=== PATIENT | female | born 1930 | race Caucasian/White ===

== ENCOUNTER 2016-05-17 20:25 | Inpatient (IN) | payer MEDICAID ==
--- NOTE | 2016-05-17 20:36 | ED Physician Chart ---
Chief Complaint/HPI - Patient Information Date Seen:: 05/17/16 Time Seen:: 20:33 Chief Complaint:: agressive behavior History of Present Illness:: pt sent [place] for aggressive behavior. has been difficult for staff to keep her calm. no recent trauma denies any acute pain. no recent illness. Allergies:: Allergies Allergy/AdvReac Type Severity Reaction Status Date / Time No Known Allergies Allergy Verified 12/24/15 23:16 Historian:: Patient Review:: Transfer documents Reviewed Review of Systems - Review of Systems General/Constitutional: No fever, No chills, No weight loss, No weakness, No diaphoresis, No edema, No loss of appetite Skin: No skin lesions, No rash, No bruising Head: No headache, No light-headedness Eyes: No loss of vision, No pain, No diplopia ENT: No earache, No nasal drainage, No sore throat, No tinnitus Neck: No neck pain, No swelling, No thyromegaly, No stiffness, No mass noted Cardio Vascular: No chest pain, No palpitations, No PND, No orthopnea, No edema Pulmonary: No SOB, No cough, No sputum, No wheezing GI: No nausea, No vomiting, No diarrhea, No pain, No melena, No hematochezia, No constipation, No hematemesis G/U: No dysuria, No frequency, No hematuria Musculoskeletal: No bone or joint pain, No back pain, No muscle pain Endocrine: No polyuria, No polydipsia Psychiatric: Prior psych history, No depression, No anxiety, No suicidal ideation, Other (difficult behavior) Hematopoietic: No bruising, No lymphadenopathy Allergic/Immuno: No urticaria, No angioedema Neurological: No syncope, No focal symptoms, No weakness, No paresthesia, No headache, No seizure, No dizziness, Confusion (chronic dementia), No vertigo Past Medical History - Past Medical History Past Medical History: Dementia Social History: Care Facility Psychiatricy History: Dementia Medication: Reviewed Family Medical History - Family Member Mother History Unknown: Yes Ethnicity: Physical Exam - Physical Examination General/Constitutional: Awake, Well-developed, well-nourished, Alert, No distress, Non-toxic appearing, Ambulatory Other Gen/Cons comments:: pt is alert...somewhat oriented but poor historain for medical hx. is alert and talking a lot. wn/wh. thin woman. wn/wh Head: Atraumatic Eyes: Lids, conjuctiva normal, PERRL, EOMI Skin: Nl inspection, No rash, No skin lesions, No ecchymosis, Well hydrated, No lymphadenopathy ENMT: External ears, nose nl, Nasal exam nl, Lips, teeth, gums nl Neck: Nontender, Full ROM w/o pain, No JVD, No nuchal rigidity, No bruit, No mass, No stridor Respiratory: Nl effort/Exclusion, Clear to Auscultation, No Wheeze/Rhonchi/Rales Cardio Vascular: RRR, No murmur, gallop, rubs, NL S1 S2 GI: No tenderness/rebounding/guarding, No organomegaly, No hernia, Normal BS's, Nondistended, No mass/bruits, No McBurney tenderness : No CVA tenderness Extremities: No tenderness or effusion, Full ROM, normal strength in all extremities, No edema, Normal digits & nails Neuro/Psych: Alert/oriented, DTR's symmetric, Normal sensory exam, Normal motor strength, Mood normal, Normal gait, No focal deficits Other Neuro/Psych comments:: somewhat excited. Misc: normal gait, Normal back, No paraspinal tenderness Labs/Radiology/EKG Results - Lab Results Results: Laboratory Tests 05/17/16 05/17/16 20:44 20:44 WBC 9.6 D RBC 3.60 L Hgb 11.8 Hct 32.9 L MCV 91.3 MCH 32.6 H MCHC Differential 35.7 RDW 12.9 Plt Count 208 D MPV 9.0 Neutrophils % 70.6 Lymphocytes % 21.7 Monocytes % 6.1 Eosinophils % 0.8 Basophils % 0.8 Sodium 139 Potassium 4.1 Chloride 102 Carbon Dioxide 28.6 Anion Gap 12.5 BUN 35 H Creatinine 0.9 Est GFR ( Amer) TNP Est GFR (Non-Af Amer) TNP BUN/Creatinine Ratio 38.9 Glucose 112 H Calcium 10.0 Total Bilirubin 0.4 AST 15 ALT 10 Alkaline Phosphatase 66 Total Protein 7.0 Albumin 4.1 Globulin 2.9 Albumin/Globulin Ratio 1.4 Triglycerides 197 H Cholesterol 148 LDL Cholesterol Direct 81 HDL Cholesterol 43 ED Septic Shock - . Is Septic Shock (SBP<90, OR Lactate>4 mmol\\L) present?: No Reassessment (Disposition) - Reassessment Reassessment:: case dw dr asia mckeon is admitting pt for "alt loc" Reassessment Condition:: Improved - Diagnosis Diagnosis:: 1 aggressive / difficult behavior 2 medically clear for geripsych admission - Aftercare/Follow up Instructions Notes:: no [facility] psych bed is currently available - Patient Disposition Admitted to:: Med/Surg Condition at Disposition:: Improved
[2016-05-17 20:54] LABS: % BASOPHILS 0.8 % (0.0-2.0); % EOSINOPHILS 0.8 % (0.0-5.0); % LYMPHOCYTES 21.7 % (20.0-50.0); % MONOCYTES 6.1 % (2.0-10.0); % NEUTROPHILS 70.6 % (40.0-80.0); HEMATOCRIT 32.9 % (35.0-45.0); HEMOGLOBIN 11.8 gm/dL (11.7-16.1); MEAN CELL VOLUME 91.3 fl (81-100); MEAN CORPUSCULAR HEMOGLOBIN 32.6 pg (27.0-31.0); MEAN CORPUSCULAR HGB CONC 35.7 pg (28.0-36.0); NEUTROPHILE ABSOLUTE 6.7 Th/cmm (1.8-8.0); RED CELL DISTRIBUTION WIDTH 12.9 % (11.5-20.0)
[2016-05-17 20:59] LABS: PLATELET COUNT 208 Th/cmm (150-400); WHITE BLOOD COUNT 9.6 Th/cmm (4.8-10.8)
[2016-05-17 21:08] LABS: ALB/GLOB RATIO 1.4 (1.0-1.8); ALKALINE PHOSPHATASE 66 U/L (34-104); ANION GAP 12.5 (7.0-16.0); BILIRUBIN,TOTAL 0.4 mg/dL (0.3-1.0); BUN - UREA NITROGEN 35 mg/dL (7-25); BUN/CREATININE RATIO 38.9; CARBON DIOXIDE 28.6 mEq/L (21.0-31.0); CHLORIDE 102 mEq/L (98-107); CHOLESTEROL 148 mg/dL (<200); CREATININE - SERUM 0.9 mg/dL (0.6-1.2); GLUCOSE 112 mg/dL (70-105); POTASSIUM SERUM 4.1 mEq/L (3.5-5.1); SGOT 15 U/L (13-39); SGPT/ALT 10 U/L (7-52); SODIUM SERUM 139 mEq/L (136-145); TRIGLYCERIDES 197 mg/dL (<150)
[2016-05-17 22:25] LABS: URINE BILIRUBIN NEGATIVE (NEGATIVE); URINE BLOOD NEGATIVE (NEGATIVE); URINE COLOR YELLOW; URINE GLUCOSE (UA) NEGATIVE (NEGATIVE); URINE KETONE NEGATIVE (NEGATIVE); URINE PH 5.5; URINE PROTEIN NEGATIVE (NEGATIVE); URINE UROBILINOGEN 0.2 E.U./dL (0.2 - 1.0)
[2016-05-17 22:26] LABS: URINE BACTERIA OCCASIONAL /hpf (NONE SEEN); URINE EPITHELIAL CELLS OCCASIONAL /lpf (FEW); URINE RBC 0-2 /hpf (0-5); URINE WBC 0-2 /hpf (0-5)
--- NOTE | 2016-05-18 02:22 | Admit Criteria Form ---
Admit Criteria Forms - Admit Criteria Diagnosis: ACUTE LOSS OF CONSCIOUSNESS- ALOC Clinical Indications for Inpatient Care (Place 'X' for any and all applicable criteria): Ongoing inpatient care may be needed for ANY ONE of the following(1)(2)(3)(5)(6) : [ ]I. Suspected serious etiology (eg, medical disorder, COMPUTER GRAPHIC ARTIST event) of mental status change [ ]II. Danger to self or others not manageable at lower level of care [ ]III. Grave disability (eg, inability to perform self care necessary at lower level of care) [ ]IV. Agitation or inappropriate behavior interfering with care for primary condition (eg, attempting to discontinue lines or drains prematurely, unable to cooperate with respiratory care) [ ]V. Delirium [A] [D][E] as described by ANY ONE of the following(26): [ ]a) Delirium due to alcohol or sedative [F] withdrawal [ ]b) Delirium of uncertain etiology that has not responded to appropriate empiric treatment [ ]c) Delirium that prevents performance of a life-sustaining function (eg, feeding or hydrating oneself) [X ]. General contraindications and/or Inappropriate clinical situations for Observational Care in patients with Acute Loss of Consciousness, when ANY ONE of the following is required: [X ]a) Prediction of prolongation of LOS based on ANY ONE of the following may be considered as a contraindication for observational care 2, 3, 4, 5, 6, 7, 8 , 9, 10, 11 [X ]i) Age > 65 yrs. [ ]ii) Patient arriving by ambulance [ ]iii) Patient with high acuity [ ]iv) Patient requiring vital sign monitoring [ ]v) Patient on IV medication [ ]b) Systolic blood pressures 180mmHg 3,12 [ ]c) Patient with altered mental status including delirium and other alteration of consciousness, (3) [ ]d) Patient whose discharge disposition will be to a assisted home or rehabilitation home should not be managed in Emergency Department Observation Unit. CMS rule requires 3 days hospital stay before such placement.3,13 [ ]e) Patient with failure to thrive due to broad array of etiologies 3,16,17 [ ]f) Inability to ambulate 3,14 Extended stay beyond goal length of stay for the primary condition may be needed until ALL of the following are present(3)(5): [ ]a) Underlying medical etiology of mental status change is absent, or has been established and adequately treated [ ]b) Danger to self or others is absent or manageable at lower level of care. [ ]c) Behavior crisis management, including physical or chemical restraints, is not required or available at lower level of car [ ]d) Substance or alcohol withdrawal is absent or manageable at lower level of care. [ ]e) Behavioral symptoms (eg, agitation, somnolence, inappropriate behavior) are absent, or are manageable at lower level of care. The original [facility] content created by [facility] has been revised. The portions of the content which have been revised are identified through the use of italic text or in bold, and [facility] has neither reviewed nor approved the modified material. All other unmodified content is copyright [facility]. Please see references footnoted in the original [facility] edition 2016 Admit Criteria Met?: Yes
[2016-05-18] MEDS ORDERED: Pneumococcal Vaccine 0.5 mL Vial IM ONE (02:44)
[2016-05-18] MEDS ORDERED: Fleet Enema 135 mL RC PRN (06:10)
[2016-05-18] MEDS ORDERED: Magnesium Hydroxide (MOM) 30 mL UDC PO PRN (06:10)
[2016-05-18] MEDS ORDERED: Non-Formulary Item 1 EA (Glucagon,Human Recombinant [Glucagon Emergency Kit] 1 MG) IJ SCH (06:15)
[2016-05-18] MEDS ORDERED: GLUCAGON HCl 1 MG KIT SUBQ PRN (08:07)
[2016-05-18] MEDS: Pantoprazole 40 mg EC Tab PO SCH (08:44)
[2016-05-18] MEDS: Polyvinyl Alcohol Ophth Soln 15 mL Bottle EACH EYE SCH ×2 (08:46→17:00)
[2016-05-18] MEDS ORDERED: LACTOSE REDUCED FOOD PO SCH (09:00)
[2016-05-18] MEDS ORDERED: Haloperidol Lactate 5 mg/mL 1mL Vial IM ONE (11:12)
--- NOTE | 2016-05-18 13:41 | History & Physical ---
HISTORY OF PRESENT ILLNESS: The patient was admitted yesterday, sent from the senior care for aggressive behavior and the patient has been confused. REVIEW OF SYSTEMS: Difficult to obtain because of her behavior. PAST MEDICAL HISTORY: The patient known to have history of dementia. PHYSICAL EXAMINATION: GENERAL: The patient is well developed, alert female, very confused, making lot of noise. HEAD: Normal. ENT: Normal. LUNGS: Bilaterally clear. CARDIOVASCULAR SYSTEM: S1, S2 heard. ABDOMEN: Soft. Bowel sounds are heard. CENTRAL NERVOUS SYSTEM: The patient is confused and disoriented. LABORATORY DATA: The patient's white count was 9.6. Hemoglobin was normal. DIAGNOSES: 1. Severe aggressive behavior. 2. Rule out toxic metabolic encephalopathy and rule out electrolyte imbalance and the patient had history of psychosis. PLAN: The patient is going to be admitted and workup will be done and will call psych doctor to admit her under Geropsych and I will follow the patient. JOB# [id number]
[2016-05-18 16:07] LABS: HEP B CORE IGM Negative (Negative); HEP C ANTIBODY <0.1 s/co ratio (0.0-0.9)
--- NOTE | 2016-05-18 20:33 | Consultation ---
PHYSICIAN: Dr. Kylah Perkins. JOURNEYMAN PATTERNMAKER: Dr. Braulio Rosales. REASON FOR THE CONSULT: Agitation and aggression. HISTORY OF PRESENT ILLNESS: The patient is an 85-year-old female who was transferred from [facility] because of increased agitation and irritability and Dr. Perkins asked me to evaluate the patient. The patient was extremely agitated and aggressive and pulling IV ____ blood all over the place and on the nurses' who were trying to help her. The patient also has been hitting and aggressive, trying to bite other staff which has the same ____ problem she exhibited in the group home. The patient also has been refusing care and refusing treatment for no apparent reason except ____ confusion and agitation. Because of her agitation, the patient was given Haldol 2 mg and Ativan 1 mg. The patient currently is sedated and is sleepy and has difficulty with answering any of the questions. Also, staff was not able to give ____ IV because of her irritability earlier and currently the patient is sedated and sleepy. Unable to take much information from the patient because of current sedation and information obtained from chart and review with the staff. PAST PSYCHIATRIC HISTORY: The patient has history of dementia and psychosis. PAST MEDICAL HISTORY: As per Dr. Perkins. SOCIAL HISTORY: The patient lives in [facility]. No known alcohol or drug use. MENTAL STATUS EXAM: The patient appears her stated age. Currently sedated. Disheveled. Unable to assess her orientation or memory or suicide or homicide or her psychosis, but seems that the patient was psychotic earlier and agitated. Poor insight. Poor judgment. ASSESSMENT: PRIMARY DIAGNOSIS: Unspecified psychosis. TREATMENT PLAN: We will continue p.r.n. medications for the time being. Also, transfer the patient to [facility] when medically cared in order to monitor her psychotropic medications and to work on behavioral modification. Thank you Dr. Perkins. JOB# [id number]
[2016-05-19] MEDS: Polyvinyl Alcohol Ophth Soln 15 mL Bottle EACH EYE SCH (09:41)
[2016-05-19] MEDS: Pantoprazole 40 mg EC Tab PO SCH (09:42)
--- NOTE | 2016-05-19 15:15 | General Progress Note ---
Objective - Results Result Diagrams: 05/17/16 20:44 05/17/16 20:44 Recent Labs: Laboratory Last Values WBC 9.6 Th/cmm (4.8-10.8) D 05/17/16 20:44 RBC 3.60 Mil/cmm (3.80-5.20) L 05/17/16 20:44 Hgb 11.8 gm/dL (11.7-16.1) 05/17/16 20:44 Hct 32.9 % (35.0-45.0) L 05/17/16 20:44 MCV 91.3 fl (81-100) 05/17/16 20:44 MCH 32.6 pg (27.0-31.0) H 05/17/16 20:44 MCHC Differential 35.7 pg (28.0-36.0) 05/17/16 20:44 RDW 12.9 % (11.5-20.0) 05/17/16 20:44 Plt Count 208 Th/cmm (150-400) D 05/17/16 20:44 MPV 9.0 fl 05/17/16 20:44 Neutrophils % 70.6 % (40.0-80.0) 05/17/16 20:44 Lymphocytes % 21.7 % (20.0-50.0) 05/17/16 20:44 Monocytes % 6.1 % (2.0-10.0) 05/17/16 20:44 Eosinophils % 0.8 % (0.0-5.0) 05/17/16 20:44 Basophils % 0.8 % (0.0-2.0) 05/17/16 20:44 Sodium 139 mEq/L (136-145) 05/17/16 20:44 Potassium 4.1 mEq/L (3.5-5.1) 05/17/16 20:44 Chloride 102 mEq/L (98-107) 05/17/16 20:44 Carbon Dioxide 28.6 mEq/L (21.0-31.0) 05/17/16 20:44 Anion Gap 12.5 (7.0-16.0) 05/17/16 20:44 BUN 35 mg/dL (7-25) H 05/17/16 20:44 Creatinine 0.9 mg/dL (0.6-1.2) 05/17/16 20:44 Est GFR ( Amer) TNP 05/17/16 20:44 Est GFR (Non-Af Amer) TNP 05/17/16 20:44 BUN/Creatinine Ratio 38.9 05/17/16 20:44 Glucose 112 mg/dL (70-105) H 05/17/16 20:44 Calcium 10.0 mg/dL (8.6-10.3) 05/17/16 20:44 Total Bilirubin 0.4 mg/dL (0.3-1.0) 05/17/16 20:44 AST 15 U/L (13-39) 05/17/16 20:44 ALT 10 U/L (7-52) 05/17/16 20:44 Alkaline Phosphatase 66 U/L (34-104) 05/17/16 20:44 Total Protein 7.0 gm/dL (6.0-8.3) 05/17/16 20:44 Albumin 4.1 gm/dL (3.7-5.3) 05/17/16 20:44 Globulin 2.9 gm/dL 05/17/16 20:44 Albumin/Globulin Ratio 1.4 (1.0-1.8) 05/17/16 20:44 Triglycerides 197 mg/dL (<150) H 05/17/16 20:44 Cholesterol 148 mg/dL (<200) 05/17/16 20:44 LDL Cholesterol Direct 81 mg/dL (75-193) 05/17/16 20:44 HDL Cholesterol 43 mg/dL (23-92) 05/17/16 20:44 TSH 1.16 uIU/ml (0.34-5.60) 05/17/16 20:44 Urine Source RANDOM 05/17/16 21:50 Urine Color YELLOW 05/17/16 21:50 Urine Clarity CLEAR (CLEAR) 05/17/16 21:50 Urine pH 5.5 05/17/16 21:50 Ur Specific [place] 1.020 (1.005-1.030) 05/17/16 21:50 Urine Protein NEGATIVE mg/dL (NEGATIVE) 05/17/16 21:50 Urine Glucose (UA) NEGATIVE mg/dL (NEGATIVE) 05/17/16 21:50 Urine Ketones NEGATIVE mg/dL (NEGATIVE) 05/17/16 21:50 Urine Blood NEGATIVE (NEGATIVE) 05/17/16 21:50 Urine Nitrate NEGATIVE (NEGATIVE) 05/17/16 21:50 Urine Bilirubin NEGATIVE (NEGATIVE) 05/17/16 21:50 Urine Urobilinogen 0.2 E.U./dL (0.2 - 1.0) 05/17/16 21:50 Ur Leukocyte Esterase NEGATIVE (NEGATIVE) 05/17/16 21:50 Urine RBC 0-2 /hpf (0-5) 05/17/16 21:50 Urine WBC 0-2 /hpf (0-5) 05/17/16 21:50 Ur Epithelial Cells OCCASIONAL /lpf (FEW) 05/17/16 21:50 Urine Bacteria OCCASIONAL /hpf (NONE SEEN) 05/17/16 21:50 RPR NONREACTIVE (NONREACTIVE) 05/17/16 20:44 Hepatitis A IgM Ab Negative (Negative) 05/17/16 20:44 Hep Bs Antigen Negative (Negative) 05/17/16 20:44 Hep B Core IgM Ab Negative (Negative) 05/17/16 20:44 Hepatitis C Antibody <0.1 s/co ratio (0.0-0.9) 05/17/16 20:44 - Physical Exam Vitals and I&O: Vital Signs Temp 97.7 F 05/19/16 04:00 Pulse 60 05/19/16 14:53 Resp 18 05/19/16 08:00 BP 112/78 05/19/16 14:53 Pulse Ox 96 05/19/16 04:00 Intake & Output 05/18/16 05/19/16 05/19/16 18:59 06:59 18:59 Intake Total 200 100 150 Balance 200 100 150 Intake: Oral 200 100 150 Other: # Voids 1 Active Medications: Current Medications Acetaminophen (Tylenol) 650 mg PO Q4HR PRN PRN Reason: Pain or Fever >101 Stop: 07/17/16 06:09 Artificial Tears (Artificial Tears Ophth Soln) 1 drop EACH EYE BID [facility] Stop: 07/17/16 08:59 Last Admin: 05/19/16 09:41 Dose: 1 drop Bisacodyl (Dulcolax 10 Mg Supp) 10 mg RC DAILY PRN PRN Reason: Constipation Stop: 07/17/16 06:09 Docusate Sodium (Colace) 100 mg PO BID [facility] Stop: 07/17/16 08:59 Last Admin: 05/19/16 09:43 Dose: 100 mg Donepezil HCl (Aricept) 5 mg PO DAILY [facility] Stop: 07/17/16 08:59 Last Admin: 05/19/16 09:43 Dose: 5 mg Ergocalciferol (Vitamin D) 50,000 iu PO QFRI [facility]FFANIE Stop: 07/18/16 08:59 Last Admin: 05/19/16 09:45 Dose: 50,000 iu Glucagon (Glucagen) 1 mg SUBQ PRN PRN PRN Reason: High Sugar Levels Stop: 07/17/16 08:06 Hydrochlorothiazide (Hctz) 12.5 mg PO DAILY [facility] Stop: 07/17/16 08:59 Last Admin: 05/19/16 09:45 Dose: 12.5 mg Isosorbide Dinitrate (Isordil) 10 mg PO TID [facility] Stop: 07/17/16 08:59 Last Admin: 05/19/16 14:53 Dose: Not Given Lisinopril (Zestril) 10 mg PO DAILY [facility] Stop: 07/17/16 08:59 Last Admin: 05/19/16 09:44 Dose: 10 mg Lorazepam (Ativan) 1 mg IM Q6H PRN; Protocol PRN Reason: Agitation Stop: 07/17/16 00:16 Last Admin: 05/18/16 11:06 Dose: 1 mg Magnesium Hydroxide (Milk Of Magnesia) 30 ml PO HS PRN PRN Reason: Constipation Stop: 07/17/16 06:09 Memantine (Namenda) 10 mg PO BID [facility] Stop: 07/17/16 08:59 Last Admin: 05/19/16 09:43 Dose: 10 mg Pantoprazole Sodium (Protonix) 40 mg PO DAILY [facility] Stop: 07/17/16 08:59 Last Admin: 05/19/16 09:42 Dose: 40 mg Quetiapine Fumarate (Seroquel) 25 mg PO BID TIFFANIE PRN Reason: Protocol Stop: 07/18/16 08:59 Quetiapine Fumarate (Seroquel) 50 mg PO HS TIFFANIE PRN Reason: Protocol Stop: 07/18/16 20:59 Sodium Phosphate (Fleet Enema) 135 ml RC Q48HR PRN PRN Reason: Constipation Stop: 05/15/17 06:09 Nutritional Asmnt/Malnutr-PDOC - Dietary Evaluation Malnutrition Findings (Please click <Entered> for more info): Nutritional Asmnt/Malnutrition Start: 05/18/16 15: 56 Text: Status: Complete Freq: Document 05/18/16 17:58 TERESA (Rec: 05/18/16 18:13 TERESA [email or web address]) Nutritional Asmnt/Malnutrition Patient General Information Nutritional Screening Consult Diagnosis Severe aggressive behavior Pertinent Medical Hx/Surgical Hx Dementia Subjective Information 85 year old female from SNF. RD consult for Jimbo Joyce. Pt with retraints on. Spoke to RN , pt was aggressive in the morning, kicking and biting staffs and refused breakfast. Moderate fat/muscle wasting to temporals, chest, extremities . Spoke to [employer] in the afternoon, pt ate 40% lunch with total assist, no difficulties swallowing noted. [place] [facility] diet order: regular, ROSALBA. Bedscale 99.9lb. Current Diet Order/ Nutrition Support Regular Pertinent Medications Colace, Vitamin D, Glucagen, MOM, Protonix, Fleet Enema Pertinent Labs BUN 35H, glucose 112H, triglycerides 197H Nutritional Hx/Data Height 1.55 m Height (Calculated Centimeters) 154.9 Current Weight (lbs) 45.314 kg Weight (Calculated Kilograms) 45.3 Weight (Calculated Grams) 09706.9 [place] Body Weight 105lb Weight Status Approriate GI Symptoms Cultural/Ethnic/Restorationist Belief Unknown. Skin Integrity/Comment: Jimbo Joyce. Skin intact. Estimated Nutritional Goals Calories/Kcals/Kg IBW 105lb/47.7kg Kcals Calculated 1193-1431kcal (25-30kcal/kg) Protein g/kg: IBW Protein Calculated 48g (1g/kg) Fluid: ml 1193-1431ml (1ml/kcal) Nutritional Problem 1. Problem Problem Inadequate oral food beverage intake related to Etiology likely cognition aeb Signs/Symptoms: pt refused breakfast, 40% lunch, moderate muscle/fat depletion noted Intervention/Recommendation Comments 1. Continue with regular diet. Texture modification if needed. 2. Monitor PO intake, recommend Boost Plus if PO intake remains suboptimal. Expected Outcomes/Goals Expected Outcomes/Goals 1. PO intake to meet 100% of estimated nutritional needs.
== END 2016-05-19 16:00 | DRG 751 ==
LOC: ER 20:25 → MSI 22:30
PROVIDERS: ADMIT Internal Medicine; ATTEND Internal Medicine
DX: F29 Unspecified psychosis not due to a substance or known physiological condition (principal); G92 Toxic encephalopathy; F03.90 Unspecified dementia, unspecified severity, without behavioral disturbance, psychotic disturbance, mood disturbance, and anxiety; R45.1 Restlessness and agitation
CPT/HCPCS: 36415-UA; 80053-TC; 80061-TC; 80074-90; 81001-TC; 84443-TC; 85025-TC; 86592-TC; 90732; J1630; J2060; Z7610

== ENCOUNTER 2016-05-19 16:00 | Inpatient (IN) | payer MEDICAID ==
[2016-05-19 18:25] VITALS: BP 136/85
[2016-05-19] MEDS ORDERED: Magnesium Hydroxide (MOM) 30 mL UDC PO PRN ×2 (18:44→18:59)
[2016-05-19] MEDS ORDERED: Fleet Enema 135 mL RC PRN (18:59)
[2016-05-19] MEDS ORDERED: GLUCAGON HCl 1 MG KIT IM SCH (19:00)
[2016-05-19] MEDS ORDERED: LACTOSE REDUCED FOOD PO SCH (21:00)
[2016-05-20] MEDS: Pantoprazole 40 mg EC Tab PO SCH (08:27)
--- NOTE | 2016-05-20 08:56 | General Progress Note ---
Objective - Physical Exam Vitals and I&O: Vital Signs Temp 97.7 F 05/19/16 19:00 Pulse 90 05/20/16 08:27 Resp 18 05/19/16 19:00 BP 144/68 05/20/16 08:27 Pulse Ox 96 05/19/16 19:00 Active Medications: Current Medications Acetaminophen (Tylenol) 650 mg PO Q4H PRN PRN Reason: Mild Pain/Headache/T above 101 Stop: 07/18/16 18:43 Artificial Tears (Artificial Tears Ophth Soln) 1 drop EACH EYE BID [facility] Stop: 07/19/16 08:59 Bisacodyl (Dulcolax 10 Mg Supp) 10 mg RC DAILY PRN PRN Reason: Constipation Stop: 07/18/16 18:58 Docusate Sodium (Colace) 100 mg PO BID [facility] Stop: 07/19/16 08:59 Last Admin: 05/20/16 08:25 Dose: 100 mg Donepezil HCl (Aricept) 5 mg PO DAILY [facility] Stop: 07/19/16 08:59 Last Admin: 05/20/16 08:27 Dose: 5 mg Ergocalciferol (Vitamin D) 50,000 iu PO QFRI TIFFANIE Stop: 07/18/16 19:29 Last Admin: 05/19/16 20:09 Dose: Not Given Hydrochlorothiazide (Hctz) 12.5 mg PO DAILY [facility] Stop: 07/19/16 08:59 Last Admin: 05/20/16 08:26 Dose: 12.5 mg Isosorbide Dinitrate (Isordil) 10 mg PO TID [facility] Stop: 07/18/16 20:59 Last Admin: 05/20/16 08:27 Dose: 10 mg Lisinopril (Zestril) 10 mg PO DAILY [facility] Stop: 07/19/16 08:59 Last Admin: 05/20/16 08:27 Dose: 10 mg Lorazepam (Ativan) 0.5 mg PO Q4HR PRN; Protocol PRN Reason: Anxiety Stop: 06/18/16 19:45 Magnesium Hydroxide (Milk Of Magnesia) 30 ml PO DAILY PRN PRN Reason: Constipation Stop: 07/18/16 18:43 Memantine (Namenda) 10 mg PO BID [facility] Stop: 07/19/16 08:59 Last Admin: 05/20/16 08:27 Dose: 10 mg Miscellaneous (Glucagon,Human Recombinant [Glucagon Emergency Kit]) 1 mg IJ PRN [facility] Stop: 07/18/16 18:59 Miscellaneous (Lactose-Reduced Food [Ensure Active Protein-Muscle]) 237 ml PO TID [facility] Stop: 07/18/16 20:59 Pantoprazole Sodium (Protonix) 40 mg PO DAILY [facility] Stop: 07/19/16 08:59 Last Admin: 05/20/16 08:27 Dose: 40 mg Quetiapine Fumarate (Seroquel) 50 mg PO HS TIFFANIE PRN Reason: Protocol Stop: 07/19/16 20:59 Quetiapine Fumarate (Seroquel) 25 mg PO BID TIFF[facility]IE PRN Reason: Protocol Stop: 07/19/16 08:59 Last Admin: 05/20/16 08:26 Dose: 25 mg Sodium Phosphate (Fleet Enema) ml RC Q48HR PRN PRN Reason: Constipation Stop: 07/18/16 18:58 Zolpidem Tartrate (Ambien) 5 mg PO HS PRN PRN Reason: Insomnia Stop: 07/18/16 19:45 Assessment/Plan - Problem List Patient Problems: All Active Problems Cataract (Acute) H26.9 Dementia (Acute) F03.90 GERD (gastroesophageal reflux disease) (Acute) K21.9 HTN (hypertension) (Acute) I10 Psychotic disorder (Acute) F29
[2016-05-20] MEDS: Polyvinyl Alcohol Ophth Soln 15 mL Bottle EACH EYE SCH ×2 (09:59→17:00)
[2016-05-21] MEDS: Pantoprazole 40 mg EC Tab PO SCH (09:55)
[2016-05-21] MEDS: Polyvinyl Alcohol Ophth Soln 15 mL Bottle EACH EYE SCH (09:55)
--- NOTE | 2016-05-21 10:05 | Psychosocial Evaluation ---
JUSTIFICATION FOR HOSPITALIZATION: The patient is transferred from [facility] for agitation and aggression. CHIEF COMPLAINT: Agitation, aggression, unsafe for a lower level of care. HISTORY OF PRESENT ILLNESS: An 85-year-old female, refusing to talk to me today, coming from the Med-Surg Unit agitated, aggressive, pulling out IV lines, trying to bite staff, refusing care, oppositional to care, resistant to care. The patient is currently in bed, not talking to me, sleeping, but arousable. PAST PSYCHIATRIC HISTORY: Dementia. PAST MEDICAL HISTORY: As per Dr. Perkins. SOCIAL HISTORY: The patient is living in a long-term. No known alcohol or drug use. MENTAL STATUS EXAMINATION: Stated age. Sleeping, but arousable. Unkempt. Poor eye contact. Mood, not talking to me. Affect is flat. Thought processes, seem confused. Thought content, unclear SI, unclear HI, unclear psychotic symptoms. She does have a history of psychosis, however. Poor insight. Poor judgment. Poor concentration. PROVISIONAL DIAGNOSES: Dementia and psychosis, unspecified and dementia with behavioral disturbances. MEDICAL: Please see full H and P by Dr. Perkins. ESTIMATED LENGTH OF STAY: 7-10 days. ASSESSMENT: The patient requiring inpatient hospitalization, agitated, confused, combative, trying to bite staff. PLAN: We will continue to monitor. The patient is not safe for a lower level of care due to the severity of her symptoms. TREATMENT PLAN: Includes group as well as milieu therapy. CONDITIONS FOR DISCHARGE: Improved mood, improved affect, cessation of any SI or HI, better control of her combative symptoms. [facility]# [id number]
--- NOTE | 2016-05-21 14:06 | General Progress Note ---
Objective - Physical Exam Vitals and I&O: Vital Signs Temp 98.2 F 05/20/16 19:39 Pulse 92 05/20/16 20:44 Resp 18 05/20/16 19:39 BP 102/65 05/20/16 20:44 Pulse Ox 97 05/20/16 19:39 Intake & Output 05/20/16 05/21/16 05/21/16 18:59 06:59 18:59 Intake Total 800 240 Balance 800 240 Intake: Oral 800 240 Other: # Voids 3 1 # Bowel Movements 1 Active Medications: Current Medications Acetaminophen (Tylenol) 650 mg PO Q4H PRN PRN Reason: Mild Pain/Headache/T above 101 Stop: 07/18/16 18:43 Artificial Tears (Artificial Tears Ophth Soln) 1 drop EACH EYE BID [facility] Stop: 07/19/16 08:59 Last Admin: 05/20/16 17:00 Dose: 1 drop Bisacodyl (Dulcolax 10 Mg Supp) 10 mg RC DAILY PRN PRN Reason: Constipation Stop: 07/18/16 18:58 Docusate Sodium (Colace) 100 mg PO BID [facility] Stop: 07/19/16 08:59 Last Admin: 05/20/16 16:59 Dose: 100 mg Donepezil HCl (Aricept) 5 mg PO DAILY [facility] Stop: 07/19/16 08:59 Last Admin: 05/20/16 08:27 Dose: 5 mg Ergocalciferol (Vitamin D) 50,000 iu PO QFRI [facility] Stop: 07/18/16 19:29 Last Admin: 05/19/16 20:09 Dose: Not Given Hydrochlorothiazide (Hctz) 12.5 mg PO DAILY [facility] Stop: 07/19/16 08:59 Last Admin: 05/20/16 08:26 Dose: 12.5 mg Isosorbide Dinitrate (Isordil) 10 mg PO TID [facility] Stop: 07/18/16 20:59 Last Admin: 05/20/16 20:44 Dose: Not Given Lisinopril (Zestril) 10 mg PO DAILY [facility] Stop: 07/19/16 08:59 Last Admin: 05/20/16 08:27 Dose: 10 mg Lorazepam (Ativan) 0.5 mg PO Q4HR PRN; Protocol PRN Reason: Anxiety Stop: 06/18/16 19:45 Magnesium Hydroxide (Milk Of Magnesia) 30 ml PO DAILY PRN PRN Reason: Constipation Stop: 07/18/16 18:43 Memantine (Namenda) 10 mg PO BID [facility] Stop: 07/19/16 08:59 Last Admin: 05/20/16 16:59 Dose: 10 mg Miscellaneous (Glucagon,Human Recombinant [Glucagon Emergency Kit]) 1 mg IJ PRN [facility] Stop: 07/18/16 18:59 Pantoprazole Sodium (Protonix) 40 mg PO DAILY [facility] Stop: 07/19/16 08:59 Last Admin: 05/20/16 08:27 Dose: 40 mg Quetiapine Fumarate (Seroquel) 50 mg PO HS [facility] PRN Reason: Protocol Stop: 07/19/16 20:59 Last Admin: 05/20/16 20:44 Dose: 50 mg Quetiapine Fumarate (Seroquel) 25 mg PO BID [facility] PRN Reason: Protocol Stop: 07/19/16 08:59 Last Admin: 05/20/16 16:59 Dose: 25 mg Sodium Phosphate (Fleet Enema) ml RC Q48HR PRN PRN Reason: Constipation Stop: 07/18/16 18:58 Zolpidem Tartrate (Ambien) 5 mg PO HS PRN PRN Reason: Insomnia Stop: 07/18/16 19:45 Assessment/Plan - Problem List Patient Problems: All Active Problems Cataract (Acute) H26.9 Dementia (Acute) F03.90 GERD (gastroesophageal reflux disease) (Acute) K21.9 HTN (hypertension) (Acute) I10 Psychotic disorder (Acute) F29
--- NOTE | 2016-05-21 20:31 | Progress Notes ---
SUBJECTIVE: The patient was seen, chart reviewed, and discussed with staff. The patient remains confused, disoriented, wandering, going into other patients' rooms. The patient is alert and oriented to name only. She does not know where she is, stating, "I'm in bed." Does not known the year, the month. Advanced dementia, confusion, still symptomatic, requiring prompting for ADLs, requiring a lot of staff redirection and supervision. ASSESSMENT: The patient remains confused, disorganized, disoriented, wandering episodes, concerns for safety, highly impulsive. PLAN: Continue to monitor. The patient is still symptomatic. Safety concerns do persist, currently on Aricept at this time as well as Namenda. Continue current dose. Also, continue low-dose Seroquel. JOB# [id number]
[2016-05-22] MEDS: Polyvinyl Alcohol Ophth Soln 15 mL Bottle EACH EYE SCH (13:58)
[2016-05-22] MEDS: Pantoprazole 40 mg EC Tab PO SCH (13:59)
--- NOTE | 2016-05-22 19:06 | History & Physical ---
CHIEF COMPLAINT: Increased agitation and aggression. HISTORY OF PRESENT ILLNESS: This is an 85-year-old female who was originally admitted from med/surg and transferred to Psych Unit due to increased agitation and aggression and increased danger to others. REVIEW OF SYSTEMS: GENERAL: The patient has no signs of any weakness or any weight loss. HEENT: No headache. Eyes: Denies any eye pain. Throat: Denies any throat pain. Neck: Denies any nuchal rigidity. CARDIOVASCULAR: No chest pain. No palpitation. PULMONARY: No coughing. RESPIRATORY: No shortness of breath. GASTROINTESTINAL: No diarrhea, no constipation, and no abdominal pain. MUSCULOSKELETAL: No edema. No clubbing. PAST PSYCHIATRIC HISTORY: Included dementia. PAST MEDICAL HISTORY: Includes vitamin deficiency, hypertension, GERD, and insomnia. PAST SURGICAL HISTORY: Unremarkable. SOCIAL HISTORY: Prior to admission to hospital, the patient was living in a [facility] facility. FAMILY HISTORY: Unremarkable. PHYSICAL EXAMINATION: GENERAL: The patient has no signs or symptoms of any dehydration or not in acute distress. HEENT: Head is atraumatic and normocephalic. Bilateral pupils are equally round and reactive to light and accommodation. Bilateral conjunctivae are clear to any injection. Bilateral nares are patent. Throat has no deviation. NECK: Supple and no JVD. CARDIOVASCULAR: S1 and S2 heard without murmur. PULMONARY: Clear to auscultation. GASTROINTESTINAL: Soft and nontender without guarding. Positive bowel sounds. GENITOURINARY: Negative for CVA tenderness. MUSCULOSKELETAL: No edema. No weakness noted. ASSESSMENT: 1. Acute psychosis. 2. Dementia. 3. Insomnia. 4. Hypertension. 5. Vitamin D deficiency. PLAN: We will keep the patient as an inpatient at Geropsych Unit. We will follow with the psychiatrist to monitor the patient's behavior and possible medication titration. JOB# [id number]
--- NOTE | 2016-05-22 22:08 | Progress Notes ---
SUBJECTIVE: Chart reviewed and the patient interviewed. Also discussed the patient's condition with the staff and reviewed records and labs. The patient continued to be in angry mood, and she is still irritable and easily agitated. The patient also is still having severe mood swings. She also is still uncooperative with her treatment and she still needs lots of redirections. She also is still aggressive with the staff, especially when the staff tries to help her with her ADLs. She also has periods of yelling and screaming for no apparent reason. Also, personal hygiene is poor. ASSESSMENT: The patient is still psychotic and aggressive. TREATMENT PLAN: We will continue to monitor her behavior and her condition closely. Also continue to work on adjusting her psychotropic medications. The patient refused to take medications yesterday. We will continue to work on her compliance with taking the medications and will continue to follow up closely. [facility]# [id number]
--- NOTE | 2016-05-23 09:24 | General Progress Note ---
Subjective - Review of Systems Service Date: 05/23/16 Events since last encounter: no distress Objective - Physical Exam Vitals and I&O: Vital Signs Temp 98 F 05/23/16 06:33 Pulse 61 05/23/16 06:33 Resp 19 05/23/16 06:33 BP 125/61 05/23/16 06:33 Pulse Ox 99 05/23/16 06:33 Intake & Output 05/22/16 05/23/16 05/23/16 18:59 06:59 18:59 Intake Total 1200 360 Balance 1200 360 Intake: Oral 1200 360 Other: # Voids 4 3 # Bowel Movements 0 Active Medications: Current Medications Acetaminophen (Tylenol) 650 mg PO Q4H PRN PRN Reason: Mild Pain/Headache/T above 101 Stop: 07/18/16 18:43 Artificial Tears (Artificial Tears Ophth Soln) 1 drop EACH EYE BID [facility] Stop: 07/19/16 08:59 Last Admin: 05/22/16 13:58 Dose: Not Given Bisacodyl (Dulcolax 10 Mg Supp) 10 mg RC DAILY PRN PRN Reason: Constipation Stop: 07/18/16 18:58 Docusate Sodium (Colace) 100 mg PO BID [facility] Stop: 07/19/16 08:59 Last Admin: 05/22/16 16:58 Dose: 100 mg Donepezil HCl (Aricept) 5 mg PO DAILY [facility] Stop: 07/19/16 08:59 Last Admin: 05/22/16 13:58 Dose: Not Given Ergocalciferol (Vitamin D) 50,000 iu PO QFRI [facility] Stop: 07/18/16 19:29 Last Admin: 05/19/16 20:09 Dose: Not Given Hydrochlorothiazide (Hctz) 12.5 mg PO DAILY [facility] Stop: 07/19/16 08:59 Last Admin: 05/22/16 13:58 Dose: Not Given Isosorbide Dinitrate (Isordil) 10 mg PO TID [facility] Stop: 07/18/16 20:59 Last Admin: 05/22/16 20:56 Dose: Not Given Lisinopril (Zestril) 10 mg PO DAILY [facility] Stop: 07/19/16 08:59 Last Admin: 05/22/16 13:59 Dose: Not Given Lorazepam (Ativan) 0.5 mg PO Q4HR PRN; Protocol PRN Reason: Anxiety Stop: 06/18/16 19:45 Magnesium Hydroxide (Milk Of Magnesia) 30 ml PO DAILY PRN PRN Reason: Constipation Stop: 07/18/16 18:43 Memantine (Namenda) 10 mg PO BID [facility] Stop: 07/19/16 08:59 Last Admin: 05/22/16 16:58 Dose: 10 mg Miscellaneous (Glucagon,Human Recombinant [Glucagon Emergency Kit]) 1 mg IJ PRN [facility] Stop: 07/18/16 18:59 Pantoprazole Sodium (Protonix) 40 mg PO DAILY [facility] Stop: 07/19/16 08:59 Last Admin: 05/22/16 13:59 Dose: Not Given Quetiapine Fumarate (Seroquel) 50 mg PO HS [facility] PRN Reason: Protocol Stop: 07/19/16 20:59 Last Admin: 05/22/16 20:54 Dose: 50 mg Quetiapine Fumarate (Seroquel) 25 mg PO BID [facility] PRN Reason: Protocol Stop: 07/19/16 08:59 Last Admin: 05/22/16 16:58 Dose: 25 mg Sodium Phosphate (Fleet Enema) 135 ml RC Q48HR PRN PRN Reason: Constipation Stop: 07/18/16 18:58 Zolpidem Tartrate (Ambien) 5 mg PO HS PRN PRN Reason: Insomnia Stop: 07/18/16 19:45 General: No acute distress HEENT: Atraumatic Neck: Supple Cardiovascular: Regular rate Abdomen: Bowel sounds Extremities: Clubbing Assessment/Plan - Problem List Patient Problems: All Active Problems Cataract (Acute) H26.9 Dementia (Acute) F03.90 GERD (gastroesophageal reflux disease) (Acute) K21.9 HTN (hypertension) (Acute) I10 Insomnia (Acute) G47.00 Psychotic disorder (Acute) F29 Vitamin D deficiency (Acute) E55.9 - Plan Plan: monitor vitals/diet labs f/up consultants
[2016-05-23] MEDS: Polyvinyl Alcohol Ophth Soln 15 mL Bottle EACH EYE SCH ×2 (09:45→09:46)
[2016-05-23] MEDS: Pantoprazole 40 mg EC Tab PO SCH (09:45)
--- NOTE | 2016-05-23 23:57 | Progress Notes ---
SUBJECTIVE: Chart reviewed and the patient interviewed. Also discussed the patient's condition with the staff and reviewed records and labs. The patient continued to be severely anxious and continued to be in angry and in irritable mood. The patient also is still easily agitated and irritable. She also still needs lots of redirections. Thought processes are circumstantial and tangential with flight of ideas. The patient also still seems to be responding to a stimuli. Also, personal hygiene is still poor. ASSESSMENT: The patient is still aggressive and psychotic. TREATMENT PLAN: Continue Seroquel at a dose of 25 mg twice a day and 50 mg at bedtime. Also, continue to work on her irritability and her agitation and behavioral modification. Also, continue to work on adjusting psychotropic medications and we will continue to follow up. JOB# [id number]
--- NOTE | 2016-05-24 09:07 | General Progress Note ---
Subjective - Review of Systems Events since last encounter: patient still psychotic irritable Objective - Physical Exam Vitals and I&O: Vital Signs Temp 98.2 F 05/24/16 06:02 Pulse 60 05/24/16 06:02 Resp 19 05/24/16 06:02 BP 109/54 05/24/16 06:02 Pulse Ox 98 05/24/16 06:02 Intake & Output 05/23/16 05/24/16 05/24/16 18:59 06:59 18:59 Intake Total 1700 120 Balance 1700 120 Intake: Oral 1700 120 Other: # Voids 7 1 # Bowel Movements 1 0 Active Medications: Current Medications Acetaminophen (Tylenol) 650 mg PO Q4H PRN PRN Reason: Mild Pain/Headache/T above 101 Stop: 07/18/16 18:43 Artificial Tears (Artificial Tears Ophth Soln) 1 drop EACH EYE BID [facility] Stop: 07/19/16 08:59 Last Admin: 05/23/16 09:46 Dose: Not Given Bisacodyl (Dulcolax 10 Mg Supp) 10 mg RC DAILY PRN PRN Reason: Constipation Stop: 07/18/16 18:58 Docusate Sodium (Colace) 100 mg PO BID [facility] Stop: 07/19/16 08:59 Last Admin: 05/23/16 16:57 Dose: 100 mg Donepezil HCl (Aricept) 5 mg PO DAILY [facility] Stop: 07/19/16 08:59 Last Admin: 05/23/16 09:44 Dose: 5 mg Ergocalciferol (Vitamin D) 50,000 iu PO QFRI [facility] Stop: 07/18/16 19:29 Last Admin: 05/19/16 20:09 Dose: Not Given Hydrochlorothiazide (Hctz) 12.5 mg PO DAILY [facility] Stop: 07/19/16 08:59 Last Admin: 05/23/16 09:45 Dose: Not Given Isosorbide Dinitrate (Isordil) 10 mg PO TID [facility] Stop: 07/18/16 20:59 Last Admin: 05/23/16 20:42 Dose: Not Given Lisinopril (Zestril) 10 mg PO DAILY [facility] Stop: 07/19/16 08:59 Last Admin: 05/23/16 09:45 Dose: Not Given Lorazepam (Ativan) 0.5 mg PO Q4HR PRN; Protocol PRN Reason: Anxiety Stop: 06/18/16 19:45 Magnesium Hydroxide (Milk Of Magnesia) 30 ml PO DAILY PRN PRN Reason: Constipation Stop: 07/18/16 18:43 Memantine (Namenda) 10 mg PO BID [facility] Stop: 07/19/16 08:59 Last Admin: 05/23/16 16:57 Dose: 10 mg Miscellaneous (Glucagon,Human Recombinant [Glucagon Emergency Kit]) 1 mg IJ PRN [facility] Stop: 07/18/16 18:59 Pantoprazole Sodium (Protonix) 40 mg PO DAILY [facility] Stop: 07/19/16 08:59 Last Admin: 05/23/16 09:45 Dose: 40 mg Quetiapine Fumarate (Seroquel) 50 mg PO HS [facility] PRN Reason: Protocol Stop: 07/19/16 20:59 Last Admin: 05/23/16 20:41 Dose: 50 mg Quetiapine Fumarate (Seroquel) 25 mg PO BID [facility] PRN Reason: Protocol Stop: 07/19/16 08:59 Last Admin: 05/23/16 16:57 Dose: 25 mg Sodium Phosphate (Fleet Enema) 135 ml RC Q48HR PRN PRN Reason: Constipation Stop: 07/18/16 18:58 Zolpidem Tartrate (Ambien) 5 mg PO HS PRN PRN Reason: Insomnia Stop: 07/18/16 19:45 General: No acute distress HEENT: Atraumatic Neck: Supple Cardiovascular: Regular rate Abdomen: Bowel sounds Assessment/Plan - Problem List Patient Problems: All Active Problems Cataract (Acute) H26.9 Dementia (Acute) F03.90 GERD (gastroesophageal reflux disease) (Acute) K21.9 HTN (hypertension) (Acute) I10 Insomnia (Acute) G47.00 Psychotic disorder (Acute) F29 Vitamin D deficiency (Acute) E55.9 - Plan Plan: monitor vitals/diet labs f/up consultants
[2016-05-24] MEDS: Pantoprazole 40 mg EC Tab PO SCH (09:43)
[2016-05-24] MEDS: Polyvinyl Alcohol Ophth Soln 15 mL Bottle EACH EYE SCH ×2 (09:43→17:48)
[2016-05-25] MEDS: Polyvinyl Alcohol Ophth Soln 15 mL Bottle EACH EYE SCH ×2 (10:18→17:59)
[2016-05-25] MEDS: Pantoprazole 40 mg EC Tab PO SCH (10:18)
--- NOTE | 2016-05-25 12:01 | General Progress Note ---
Subjective - Review of Systems Events since last encounter: patient still agressive Objective - Physical Exam Vitals and I&O: Vital Signs Temp 98.6 F 05/25/16 06:53 Pulse 70 05/25/16 10:21 Resp 21 05/25/16 06:53 BP 130/67 05/25/16 10:21 Pulse Ox 97 05/25/16 06:53 Intake & Output 05/24/16 05/25/16 05/25/16 18:59 06:59 18:59 Intake Total 960 Balance 960 Intake: Oral 960 Other: # Voids 3 # Bowel Movements 1 Active Medications: Current Medications Acetaminophen (Tylenol) 650 mg PO Q4H PRN PRN Reason: Mild Pain/Headache/T above 101 Stop: 07/18/16 18:43 Artificial Tears (Artificial Tears Ophth Soln) 1 drop EACH EYE BID [facility] Stop: 07/19/16 08:59 Last Admin: 05/25/16 10:18 Dose: 1 drop Bisacodyl (Dulcolax 10 Mg Supp) 10 mg RC DAILY PRN PRN Reason: Constipation Stop: 07/18/16 18:58 Docusate Sodium (Colace) 100 mg PO BID [facility] Stop: 07/19/16 08:59 Last Admin: 05/25/16 10:18 Dose: Not Given Donepezil HCl (Aricept) 5 mg PO DAILY [facility] Stop: 07/19/16 08:59 Last Admin: 05/25/16 10:18 Dose: 5 mg Ergocalciferol (Vitamin D) 50,000 iu PO QFRI [facility] Stop: 07/18/16 19:29 Last Admin: 05/19/16 20:09 Dose: Not Given Hydrochlorothiazide (Hctz) 12.5 mg PO DAILY [facility] Stop: 07/19/16 08:59 Last Admin: 05/25/16 10:25 Dose: Not Given Isosorbide Dinitrate (Isordil) 10 mg PO TID [facility] Stop: 07/18/16 20:59 Last Admin: 05/25/16 10:25 Dose: Not Given Lisinopril (Zestril) 10 mg PO DAILY [facility] Stop: 07/19/16 08:59 Last Admin: 05/25/16 10:21 Dose: 10 mg Lorazepam (Ativan) 0.5 mg PO Q4HR PRN; Protocol PRN Reason: Anxiety Stop: 06/18/16 19:45 Magnesium Hydroxide (Milk Of Magnesia) 30 ml PO DAILY PRN PRN Reason: Constipation Stop: 07/18/16 18:43 Memantine (Namenda) 10 mg PO BID [facility] Stop: 07/19/16 08:59 Last Admin: 05/25/16 10:25 Dose: 10 mg Miscellaneous (Glucagon,Human Recombinant [Glucagon Emergency Kit]) 1 mg IJ PRN [facility] Stop: 07/18/16 18:59 Pantoprazole Sodium (Protonix) 40 mg PO DAILY [facility] Stop: 07/19/16 08:59 Last Admin: 05/25/16 10:18 Dose: 40 mg Quetiapine Fumarate (Seroquel) 62.5 mg PO HS [facility] PRN Reason: Protocol Stop: 07/19/16 20:59 Quetiapine Fumarate (Seroquel) 37.5 mg PO BID [facility] PRN Reason: Protocol Stop: 07/19/16 08:59 Last Admin: 05/25/16 10:19 Dose: 37.5 mg Sodium Phosphate (Fleet Enema) 135 ml RC Q48HR PRN PRN Reason: Constipation Stop: 07/18/16 18:58 Zolpidem Tartrate (Ambien) 5 mg PO HS PRN PRN Reason: Insomnia Stop: 07/18/16 19:45 General: No acute distress HEENT: Atraumatic Cardiovascular: Regular rate Abdomen: Bowel sounds Assessment/Plan - Problem List Patient Problems: All Active Problems Cataract (Acute) H26.9 Dementia (Acute) F03.90 GERD (gastroesophageal reflux disease) (Acute) K21.9 HTN (hypertension) (Acute) I10 Insomnia (Acute) G47.00 Psychotic disorder (Acute) F29 Vitamin D deficiency (Acute) E55.9 - Plan Plan: monitor vitals/diet labs f/up consultants under psych care
--- NOTE | 2016-05-25 15:45 | Progress Notes ---
SUBJECTIVE: Chart reviewed and the patient interviewed. Also discussed the patient's condition with the staff and reviewed records and labs. The patient remains irritable and she is still agitated. The patient also is still rambling in [place] language. The patient also is agitated, and she is still angry with the staff and refusing help and gets aggressive when the staff tries to help her with her ADLs. The patient also is still restless. The patient also is still having mood swings and needs lots of redirections. During interview, the patient is rambling in [place]ian language. She also is unkempt and easily agitated and unable to answer questions coherently according to staff that helps with translation. ASSESSMENT: The patient is still psychotic and aggressive/ TREATMENT PLAN: The patient started on Seroquel 25 mg twice a day and 50 mg at bedtime. We will continue same dose and we will continue monitoring her behavior and her condition closely. JOB# [id number]
--- NOTE | 2016-05-25 21:51 | Progress Notes ---
SUBJECTIVE: Chart reviewed and the patient interviewed. Also, discussed the patient's condition with the staff and reviewed records and labs. The patient remains agitated and confused and she is still restless and has difficulty following any of staff directions. The patient also is still aggressive with the staff during helping her with her ADLs. The patient also is still unable to answer any of the questions coherently. She also still needs lots of redirections. Also, personal hygiene is still poor. ASSESSMENT: The patient is still aggressive and is still confused and can be dangerous to others. TREATMENT PLAN: We will continue monitoring her behavior and her condition closely. Also, we will increase Seroquel to 37.5 mg twice a day and 62.5 mg at bedtime. Also, continue to monitor her behavior and her medications closely. Also, working on behavioral modification. JOB# [id number]
[2016-05-26] MEDS: Pantoprazole 40 mg EC Tab PO SCH (09:29)
[2016-05-26] MEDS: Polyvinyl Alcohol Ophth Soln 15 mL Bottle EACH EYE SCH ×2 (09:29→17:53)
--- NOTE | 2016-05-26 09:35 | General Progress Note ---
Subjective - Review of Systems Events since last encounter: no distress Objective - Physical Exam Vitals and I&O: Vital Signs Temp 97.9 F 05/26/16 07:06 Pulse 72 05/26/16 07:06 Resp 18 05/26/16 07:06 BP 129/69 05/26/16 07:06 Pulse Ox 97 05/26/16 07:06 Intake & Output 05/25/16 05/26/16 05/26/16 18:59 06:59 18:59 Intake Total 960 Balance 960 Weight (lbs) 46.221 kg Intake: Oral 960 Other: # Voids 4 2 # Bowel Movements 1 Active Medications: Current Medications Acetaminophen (Tylenol) 650 mg PO Q4H PRN PRN Reason: Mild Pain/Headache/T above 101 Stop: 07/18/16 18:43 Artificial Tears (Artificial Tears Ophth Soln) 1 drop EACH EYE BID [facility] Stop: 07/19/16 08:59 Last Admin: 05/25/16 17:59 Dose: 1 drop Bisacodyl (Dulcolax 10 Mg Supp) 10 mg RC DAILY PRN PRN Reason: Constipation Stop: 07/18/16 18:58 Docusate Sodium (Colace) 100 mg PO BID [facility] Stop: 07/19/16 08:59 Last Admin: 05/25/16 17:14 Dose: Not Given Donepezil HCl (Aricept) 5 mg PO DAILY [facility] Stop: 07/19/16 08:59 Last Admin: 05/25/16 10:18 Dose: 5 mg Ergocalciferol (Vitamin D) 50,000 iu PO QFRI [facility] Stop: 07/18/16 19:29 Last Admin: 05/19/16 20:09 Dose: Not Given Glucagon (Glucagen) 1 mg IM PRN [facility] Stop: 07/18/16 18:59 Hydrochlorothiazide (Hctz) 12.5 mg PO DAILY [facility] Stop: 07/19/16 08:59 Last Admin: 05/25/16 10:25 Dose: Not Given Isosorbide Dinitrate (Isordil) 10 mg PO TID [facility] Stop: 07/18/16 20:59 Last Admin: 05/25/16 20:25 Dose: Not Given Lisinopril (Zestril) 10 mg PO DAILY [facility] Stop: 07/19/16 08:59 Last Admin: 05/25/16 10:21 Dose: 10 mg Lorazepam (Ativan) 0.5 mg PO Q4HR PRN; Protocol PRN Reason: Anxiety Stop: 06/18/16 19:45 Magnesium Hydroxide (Milk Of Magnesia) 30 ml PO DAILY PRN PRN Reason: Constipation Stop: 07/18/16 18:43 Memantine (Namenda) 10 mg PO BID [facility] Stop: 07/19/16 08:59 Last Admin: 05/25/16 17:59 Dose: 10 mg Pantoprazole Sodium (Protonix) 40 mg PO DAILY [facility] Stop: 07/19/16 08:59 Last Admin: 05/25/16 10:18 Dose: 40 mg Quetiapine Fumarate (Seroquel) 62.5 mg PO HS [facility] PRN Reason: Protocol Stop: 07/19/16 20:59 Last Admin: 05/25/16 20:24 Dose: 62.5 mg Quetiapine Fumarate (Seroquel) 37.5 mg PO BID [facility] PRN Reason: Protocol Stop: 07/19/16 08:59 Last Admin: 05/25/16 17:59 Dose: 37.5 mg Sodium Phosphate (Fleet Enema) 135 ml RC Q48HR PRN PRN Reason: Constipation Stop: 07/18/16 18:58 Zolpidem Tartrate (Ambien) 5 mg PO HS PRN PRN Reason: Insomnia Stop: 07/18/16 19:45 General: No acute distress HEENT: Atraumatic Neck: Supple Cardiovascular: Regular rate Abdomen: Bowel sounds Assessment/Plan - Problem List Patient Problems: All Active Problems Cataract (Acute) H26.9 Dementia (Acute) F03.90 GERD (gastroesophageal reflux disease) (Acute) K21.9 HTN (hypertension) (Acute) I10 Insomnia (Acute) G47.00 Psychotic disorder (Acute) F29 Vitamin D deficiency (Acute) E55.9 - Plan Plan: monitor vitals/diet labs f/up consultants under psych care Nutritional Asmnt/Malnutr-PDOC - Dietary Evaluation Malnutrition Findings (Please click <Entered> for more info): Nutritional Asmnt/Malnutrition Start: 05/25/16 17: 58 Text: Status: Complete Freq: Document 05/25/16 17:58 GSUN (Rec: 05/25/16 18:04 [email or web address] [email or web address]) Nutritional Asmnt/Malnutrition Patient General Information Nutritional Screening Diagnosis Diagnosis Psychosis Pertinent Medical Hx/Surgical Hx Vitamin deficiency, HTN, GERD, insomnia Subjective Information 85 year old female from SNF. Pt had blanket covering whole body during visit, noted to be very confused, did not respond to RD's call. Pt transfered from [facility], RD has seen pt at [facility] on 05/18 : moderate fat/muscle wasting to temporals, chest, extremities. Pt avg PO intake 75% at [facility], 100% past 2 days, meeting nutritional needs. 05/18 bedscale 99.9lb, 101.9lb today. Current Diet Order/ Nutrition Support Regular, Boost TID Pertinent Medications Colace, Vitamin D, MOM, Protonix, Seroquel, Fleet Enema Pertinent Labs No current labs. 05/17 labs: reviewed. Nutritional Hx/Data Height 1.55 m Height (Calculated Centimeters) 154.9 Current Weight (lbs) 46.221 kg Weight (Calculated Kilograms) 46.2 Weight (Calculated Grams) 94293.1 [place] Body Weight 105lb Weight Status Approriate GI Symptoms Food Allergies No Skin Integrity/Comment: Jimbo 18. Skin intact. Current %PO Good (75-100%) Estimated Nutritional Goals Calories/Kcals/Kg IBW 105lb/47.7kg Kcals Calculated 1193-1431kcal (25-30kcal/kg) Protein Calculated 48g (1g/kg) Fluid: ml 1193-1431ml (1ml/kcal) Nutritional Problem 1. Problem Problem No nutritional problems at this time. Intervention/Recommendation Comments 1. Continue with regular diet with Boost TID. Avg PO intake is adequate to rpomote weight gain. 2. Monitor weight. 05/17 9.99lb , 05/25 101.9lb. Expected Outcomes/Goals Expected Outcomes/Goals 1. PO intake continue to meet 100% of estimated nutritional needs ot promtoe weight gain.
--- NOTE | 2016-05-27 01:16 | Progress Notes ---
SUBJECTIVE: Chart reviewed and the patient interviewed. Also discussed the patient's condition with the staff and reviewed records and labs. The patient remains paranoid and confused. The patient also is still easily agitated and is still in angry and in irritable mood. The patient also is still talking to herself in [place] and she is still resisting care and gets aggressive with the staff when they try to help her with her ADLs. She also still needs lots of redirections and is still agitated when the staff redirect her. Last night, the patient refused to take her medications in spite of the staff's trial in [place] language to convince her to take medications, but she still refused. ASSESSMENT: The patient is still agitated and psychotic. TREATMENT PLAN: We will continue to monitor her behavior and her condition closely. Also continue to work on her irritable mood and has agitation and will continue to follow up closely. Also Seroquel was increased yesterday to 37.5 mg twice a day and 62.5 mg at bedtime. Will continue the same dose and will continue to follow up. [facility]# [id number]
--- NOTE | 2016-05-27 09:06 | General Progress Note ---
Subjective - Review of Systems Events since last encounter: patient laying in bed Objective - Physical Exam Vitals and I&O: Vital Signs Temp 98.1 F 05/26/16 20:50 Pulse 77 05/26/16 20:50 Resp 19 05/26/16 20:50 BP 119/60 05/26/16 20:50 Pulse Ox 97 05/26/16 20:50 Intake & Output 05/26/16 05/27/16 05/27/16 18:59 06:59 18:59 Intake Total 900 240 Output Total 1 Balance 899 240 Intake: Oral 900 240 Output: Stool 1 Other: # Voids 2 1 Stool Characteristics Formed Hard Active Medications: Current Medications Acetaminophen (Tylenol) 650 mg PO Q4H PRN PRN Reason: Mild Pain/Headache/T above 101 Stop: 07/18/16 18:43 Last Admin: 05/26/16 17:54 Dose: 650 mg Artificial Tears (Artificial Tears Ophth Soln) 1 drop EACH EYE BID [facility] Stop: 07/19/16 08:59 Last Admin: 05/26/16 17:53 Dose: 1 drop Bisacodyl (Dulcolax 10 Mg Supp) 10 mg RC DAILY PRN PRN Reason: Constipation Stop: 07/18/16 18:58 Docusate Sodium (Colace) 100 mg PO BID [facility] Stop: 07/19/16 08:59 Last Admin: 05/26/16 17:52 Dose: 100 mg Donepezil HCl (Aricept) 5 mg PO DAILY [facility] Stop: 07/19/16 08:59 Last Admin: 05/26/16 09:30 Dose: 5 mg Ergocalciferol (Vitamin D) 50,000 iu PO QFRI [facility] Stop: 07/18/16 19:29 Last Admin: 05/26/16 19:44 Dose: 50,000 iu Glucagon (Glucagen) 1 mg IM PRN [facility] Stop: 07/18/16 18:59 Hydrochlorothiazide (Hctz) 12.5 mg PO DAILY [facility] Stop: 07/19/16 08:59 Last Admin: 05/26/16 09:26 Dose: Not Given Isosorbide Dinitrate (Isordil) 10 mg PO TID [facility] Stop: 07/18/16 20:59 Last Admin: 05/26/16 20:48 Dose: 10 mg Lisinopril (Zestril) 10 mg PO DAILY [facility] Stop: 07/19/16 08:59 Last Admin: 05/26/16 09:26 Dose: Not Given Lorazepam (Ativan) 0.5 mg PO Q4HR PRN; Protocol PRN Reason: Anxiety Stop: 06/18/16 19:45 Magnesium Hydroxide (Milk Of Magnesia) 30 ml PO DAILY PRN PRN Reason: Constipation Stop: 07/18/16 18:43 Memantine (Namenda) 10 mg PO BID [facility] Stop: 07/19/16 08:59 Last Admin: 05/26/16 17:52 Dose: 10 mg Pantoprazole Sodium (Protonix) 40 mg PO DAILY [facility] Stop: 07/19/16 08:59 Last Admin: 05/26/16 09:29 Dose: 40 mg Quetiapine Fumarate (Seroquel) 62.5 mg PO HS TIFFANIE PRN Reason: Protocol Stop: 07/19/16 20:59 Last Admin: 05/26/16 20:49 Dose: 62.5 mg Quetiapine Fumarate (Seroquel) 37.5 mg PO BID TIFFANIE PRN Reason: Protocol Stop: 07/19/16 08:59 Last Admin: 05/26/16 17:53 Dose: 37.5 mg Sodium Phosphate (Fleet Enema) 135 ml RC Q48HR PRN PRN Reason: Constipation Stop: 07/18/16 18:58 Zolpidem Tartrate (Ambien) 5 mg PO HS PRN PRN Reason: Insomnia Stop: 07/18/16 19:45 General: No acute distress HEENT: Atraumatic Neck: Supple Cardiovascular: Regular rate Lungs: Clear to auscultation Assessment/Plan - Problem List Patient Problems: All Active Problems Cataract (Acute) H26.9 Dementia (Acute) F03.90 GERD (gastroesophageal reflux disease) (Acute) K21.9 HTN (hypertension) (Acute) I10 Insomnia (Acute) G47.00 Psychotic disorder (Acute) F29 Vitamin D deficiency (Acute) E55.9 - Plan Plan: monitor vitals/diet labs f/up consultants under psych care Nutritional Asmnt/Malnutr-PDOC - Dietary Evaluation Malnutrition Findings (Please click <Entered> for more info): Nutritional Asmnt/Malnutrition Start: 05/25/16 17: 58 Text: Status: Complete Freq: Document 05/25/16 17:58 GSUN (Rec: 05/25/16 18:04 GSUN [email or web address]) Nutritional Asmnt/Malnutrition Patient General Information Nutritional Screening Diagnosis Diagnosis Psychosis Pertinent Medical Hx/Surgical Hx Vitamin deficiency, HTN, GERD, insomnia Subjective Information 85 year old female from SNF. Pt had blanket covering whole body during visit, noted to be very confused, did not respond to RD's call. Pt transfered from [facility], RD has seen pt at [facility] on 05/18 : moderate fat/muscle wasting to temporals, chest, extremities. Pt avg PO intake 75% at [facility], 100% past 2 days, meeting nutritional needs. 05/18 bedscale 99.9lb, 101.9lb today. Current Diet Order/ Nutrition Support Regular, Boost TID Pertinent Medications Colace, Vitamin D, MOM, Protonix, Seroquel, Fleet Enema Pertinent Labs No current labs. 05/17 labs: reviewed. Nutritional Hx/Data Height 1.55 m Height (Calculated Centimeters) 154.9 Current Weight (lbs) 46.221 kg Weight (Calculated Kilograms) 46.2 Weight (Calculated Grams) 32209.1 [place] Body Weight 105lb Weight Status Approriate GI Symptoms Food Allergies No Skin Integrity/Comment: Jimbo 18. Skin intact. Current %PO Good (75-100%) Estimated Nutritional Goals Calories/Kcals/Kg IBW 105lb/47.7kg Kcals Calculated 1193-1431kcal (25-30kcal/kg) Protein Calculated 48g (1g/kg) Fluid: ml 1193-1431ml (1ml/kcal) Nutritional Problem 1. Problem Problem No nutritional problems at this time. Intervention/Recommendation Comments 1. Continue with regular diet with Boost TID. Avg PO intake is adequate to rpomote weight gain. 2. Monitor weight. 05/17 9.99lb , 05/25 101.9lb. Expected Outcomes/Goals Expected Outcomes/Goals 1. PO intake continue to meet 100% of estimated nutritional needs ot promtoe weight gain.
[2016-05-27] MEDS ORDERED: GLUCAGON HCl 1 MG KIT IM PRN (09:31)
[2016-05-27] MEDS: Polyvinyl Alcohol Ophth Soln 15 mL Bottle EACH EYE SCH (16:33)
[2016-05-27] MEDS: Pantoprazole 40 mg EC Tab PO SCH (16:34)
--- NOTE | 2016-05-27 23:33 | Progress Notes ---
Covering for Dr. Rosales. Case was discussed with staff of the patient, reviewed records. This is an 85-year-old female who was admitted on 05/19/2016 because of aggressive behavior, agitation, unsafe to treat at the lower level of care. She came from med/surge unit. She was agitated, aggressive, ____ trying to bite staff, refusing care, oppositional to care. She has been demented, confused, and continues to be unable to make safe plan for self-care. Continues to ____ wandering in the unit, easily agitated, and she is on Seroquel, which was increased 2 days ago to 62.5 mg at bedtime and 37.5 mg twice a day with no side effects, no sedation, no nausea, and no extrapyramidal symptoms. We will continue to work with the patient in group therapy, milieu therapy, and adjust the medication as needed. JOB# [id number]
--- NOTE | 2016-05-28 08:10 | General Progress Note ---
Subjective - Review of Systems Service Date: 05/28/16 Events since last encounter: patient still confused Objective - Physical Exam Vitals and I&O: Vital Signs Temp 97.8 F 05/28/16 07:01 Pulse 57 05/28/16 07:01 Resp 19 05/28/16 07:01 BP 112/51 05/28/16 07:01 Pulse Ox 98 05/28/16 07:01 Intake & Output 05/27/16 05/28/16 05/28/16 18:59 06:59 18:59 Intake Total 1600 Balance 1600 Intake: Oral 1600 Other: # Voids 3 # Bowel Movements 0 Active Medications: Current Medications Acetaminophen (Tylenol) 650 mg PO Q4H PRN PRN Reason: Mild Pain/Headache/T above 101 Stop: 07/18/16 18:43 Last Admin: 05/26/16 17:54 Dose: 650 mg Artificial Tears (Artificial Tears Ophth Soln) 1 drop EACH EYE BID [facility] Stop: 07/19/16 08:59 Last Admin: 05/27/16 16:33 Dose: Not Given Bisacodyl (Dulcolax 10 Mg Supp) 10 mg RC DAILY PRN PRN Reason: Constipation Stop: 07/18/16 18:58 Docusate Sodium (Colace) 100 mg PO BID [facility] Stop: 07/19/16 08:59 Last Admin: 05/27/16 16:33 Dose: 100 mg Donepezil HCl (Aricept) 5 mg PO DAILY [facility] Stop: 07/19/16 08:59 Last Admin: 05/27/16 16:33 Dose: Not Given Ergocalciferol (Vitamin D) 50,000 iu PO QFRI [facility] Stop: 07/18/16 19:29 Last Admin: 05/26/16 19:44 Dose: 50,000 iu Glucagon (Glucagen) 1 mg IM PRN PRN PRN Reason: Hypoglycemia BG < 50 Stop: 07/18/16 18:59 Hydrochlorothiazide (Hctz) 12.5 mg PO DAILY [facility] Stop: 07/19/16 08:59 Last Admin: 05/27/16 16:34 Dose: Not Given Isosorbide Dinitrate (Isordil) 10 mg PO TID [facility] Stop: 07/18/16 20:59 Last Admin: 05/27/16 20:57 Dose: 10 mg Lisinopril (Zestril) 10 mg PO DAILY [facility] Stop: 07/19/16 08:59 Last Admin: 05/27/16 16:34 Dose: Not Given Lorazepam (Ativan) 0.5 mg PO Q4HR PRN; Protocol PRN Reason: Anxiety Stop: 06/18/16 19:45 Magnesium Hydroxide (Milk Of Magnesia) 30 ml PO DAILY PRN PRN Reason: Constipation Stop: 07/18/16 18:43 Memantine (Namenda) 10 mg PO BID [facility] Stop: 07/19/16 08:59 Last Admin: 05/27/16 16:34 Dose: 10 mg Pantoprazole Sodium (Protonix) 40 mg PO DAILY [facility] Stop: 07/19/16 08:59 Last Admin: 05/27/16 16:34 Dose: Not Given Quetiapine Fumarate (Seroquel) 62.5 mg PO HS [facility]FFANIE PRN Reason: Protocol Stop: 07/19/16 20:59 Last Admin: 05/27/16 20:57 Dose: 62.5 mg Quetiapine Fumarate (Seroquel) 37.5 mg PO BID [facility] PRN Reason: Protocol Stop: 07/19/16 08:59 Last Admin: 05/27/16 16:34 Dose: 37.5 mg Sodium Phosphate (Fleet Enema) 135 ml RC Q48HR PRN PRN Reason: Constipation Stop: 07/18/16 18:58 Zolpidem Tartrate (Ambien) 5 mg PO HS PRN PRN Reason: Insomnia Stop: 07/18/16 19:45 General: Alert, Mild distress HEENT: Atraumatic Neck: Supple Cardiovascular: Rubs Lungs: Clear to auscultation Abdomen: Bowel sounds Assessment/Plan - Problem List Patient Problems: All Active Problems Cataract (Acute) H26.9 Dementia (Acute) F03.90 GERD (gastroesophageal reflux disease) (Acute) K21.9 HTN (hypertension) (Acute) I10 Insomnia (Acute) G47.00 Psychotic disorder (Acute) F29 Vitamin D deficiency (Acute) E55.9 - Plan Plan: monitor vitals/diet labs f/up consultants under psych care Nutritional Asmnt/Malnutr-PDOC - Dietary Evaluation Malnutrition Findings (Please click <Entered> for more info): Nutritional Asmnt/Malnutrition Start: 05/25/16 17: 58 Text: Status: Complete Freq: Document 05/25/16 17:58 GSUN (Rec: 05/25/16 18:04 GSUN [email or web address]) Nutritional Asmnt/Malnutrition Patient General Information Nutritional Screening Diagnosis Diagnosis Psychosis Pertinent Medical Hx/Surgical Hx Vitamin deficiency, HTN, GERD, insomnia Subjective Information 85 year old female from SNF. Pt had blanket covering whole body during visit, noted to be very confused, did not respond to RD's call. Pt transfered from [facility], RD has seen pt at [facility] on 05/18 : moderate fat/muscle wasting to temporals, chest, extremities. Pt avg PO intake 75% at [facility], 100% past 2 days, meeting nutritional needs. 05/18 bedscale 99.9lb, 101.9lb today. Current Diet Order/ Nutrition Support Regular, Boost TID Pertinent Medications Colace, Vitamin D, MOM, Protonix, Seroquel, Fleet Enema Pertinent Labs No current labs. 05/17 labs: reviewed. Nutritional Hx/Data Height 1.55 m Height (Calculated Centimeters) 154.9 Current Weight (lbs) 46.221 kg Weight (Calculated Kilograms) 46.2 Weight (Calculated Grams) 82654.1 [place] Body Weight 105lb Weight Status Approriate GI Symptoms Food Allergies No Skin Integrity/Comment: Jimbo Sanderson. Skin intact. Current %PO Good (75-100%) Estimated Nutritional Goals Calories/Kcals/Kg IBW 105lb/47.7kg Kcals Calculated 1193-1431kcal (25-30kcal/kg) Protein Calculated 48g (1g/kg) Fluid: ml 1193-1431ml (1ml/kcal) Nutritional Problem 1. Problem Problem No nutritional problems at this time. Intervention/Recommendation Comments 1. Continue with regular diet with Boost TID. Avg PO intake is adequate to rpomote weight gain. 2. Monitor weight. 05/17 9.99lb , 05/25 101.9lb. Expected Outcomes/Goals Expected Outcomes/Goals 1. PO intake continue to meet 100% of estimated nutritional needs ot promtoe weight gain.
[2016-05-28] MEDS: Polyvinyl Alcohol Ophth Soln 15 mL Bottle EACH EYE SCH ×2 (17:00→17:01)
[2016-05-28] MEDS: Pantoprazole 40 mg EC Tab PO SCH (17:03)
--- NOTE | 2016-05-28 21:19 | Progress Notes ---
Case was discussed with staff of the patient, reviewed records. The patient continues to be confused and demented. Continues to be unable to participate in meaningful conversation or make safe plan for her self-care, ____ her family was there and apparently, she told them she is feeling weak, I talked to her through her family who translate it. I asked the staff to check her vital signs because there is a complain of weakness. She still is unpredictable, impulsive, demented, confused. She is compliant with the medication with no side effects and we will continue to work with the patient in group therapy, milieu therapy, adjust medications and advised the staff to call medical doctor if there is any evidence of a change in her vital signs. [facility]# [id number]
[2016-05-29] MEDS: Polyvinyl Alcohol Ophth Soln 15 mL Bottle EACH EYE SCH ×2 (15:51→17:43)
[2016-05-29] MEDS: Pantoprazole 40 mg EC Tab PO SCH (15:52)
--- NOTE | 2016-05-29 22:43 | Progress Notes ---
Case was discussed with staff of the patient, reviewed records. The patient continues to be confused and not making sense, continues to be gravely disabled and unable to make safe plan for self care. She has been compliant with the medication with no side effects, no sedation and no nausea. She has to be prompted to eat. She is tolerating the Seroquel with no side effects, no sedation, no nausea and no extrapyramidal symptoms. I will be increasing the Aricept dose to 10 mg at bedtime to help with her confusion, poor memory, dementia and so far no side effects, no sedation, no nausea and no extrapyramidal symptoms. We will continue to work with the patient in group therapy, milieu therapy and adjust medication as needed. JOB# [id number]
--- NOTE | 2016-05-30 03:17 | Progress Notes ---
SUBJECTIVE: The patient was seen in her room, lying in the bed. The patient still continues to be confused and demented and unable to continue a conversation. OBJECTIVE: HEENT: Head is atraumatic and normocephalic. Eyes: Bilateral conjunctivae are clear for injection. NECK: Supple. No JVD. CARDIOVASCULAR: S1 and S2 heard without murmur. PULMONARY: Clear to auscultation. GASTROINTESTINAL: Soft and nontender without guarding. MUSCULOSKELETAL: No edema and no clubbing noted. ASSESSMENT: 1. Psychosis. 2. Dementia. 3. Insomnia. 4. Hypertension. 5. Vitamin D deficiency. PLAN: We will keep the patient in the Geropsych Unit and we will follow with the psychiatrist to monitor the patient's behavior. JOB# [id number]
--- NOTE | 2016-05-30 08:53 | General Progress Note ---
Subjective - Review of Systems Events since last encounter: patient still confused Objective - Physical Exam Vitals and I&O: Vital Signs Temp 98.4 F 05/30/16 06:32 Pulse 61 05/30/16 06:32 Resp 20 05/30/16 06:32 BP 122/65 05/30/16 06:32 Pulse Ox 99 05/30/16 06:32 Intake & Output 05/29/16 05/30/16 05/30/16 18:59 06:59 18:59 Intake Total 700 240 Balance 700 240 Intake: Oral 700 240 Other: # Voids 3 1 # Bowel Movements 1 0 Active Medications: Current Medications Acetaminophen (Tylenol) 650 mg PO Q4H PRN PRN Reason: Mild Pain/Headache/T above 101 Stop: 07/18/16 18:43 Last Admin: 05/26/16 17:54 Dose: 650 mg Artificial Tears (Artificial Tears Ophth Soln) 1 drop EACH EYE BID [facility] Stop: 07/19/16 08:59 Last Admin: 05/29/16 17:43 Dose: Not Given Bisacodyl (Dulcolax 10 Mg Supp) 10 mg RC DAILY PRN PRN Reason: Constipation Stop: 07/18/16 18:58 Docusate Sodium (Colace) 100 mg PO BID [facility] Stop: 07/19/16 08:59 Last Admin: 05/29/16 16:09 Dose: 100 mg Donepezil HCl (Aricept) 10 mg PO DAILY [facility] Stop: 07/28/16 09:00 Ergocalciferol (Vitamin D) 50,000 iu PO QFRI [facility] Stop: 07/18/16 19:29 Last Admin: 05/26/16 19:44 Dose: 50,000 iu Glucagon (Glucagen) 1 mg IM PRN PRN PRN Reason: Hypoglycemia BG < 50 Stop: 07/18/16 18:59 Hydrochlorothiazide (Hctz) 12.5 mg PO DAILY [facility] Stop: 07/19/16 08:59 Last Admin: 05/29/16 15:52 Dose: Not Given Isosorbide Dinitrate (Isordil) 10 mg PO TID [facility] Stop: 07/18/16 20:59 Last Admin: 05/29/16 21:03 Dose: Not Given Lisinopril (Zestril) 10 mg PO DAILY [facility] Stop: 07/19/16 08:59 Last Admin: 05/29/16 15:52 Dose: Not Given Lorazepam (Ativan) 0.5 mg PO Q4HR PRN; Protocol PRN Reason: Anxiety Stop: 06/18/16 19:45 Last Admin: 05/29/16 16:09 Dose: 0.5 mg Magnesium Hydroxide (Milk Of Magnesia) 30 ml PO DAILY PRN PRN Reason: Constipation Stop: 07/18/16 18:43 Memantine (Namenda) 10 mg PO BID [facility] Stop: 07/19/16 08:59 Last Admin: 05/29/16 16:09 Dose: 10 mg Pantoprazole Sodium (Protonix) 40 mg PO DAILY [facility] Stop: 07/19/16 08:59 Last Admin: 05/29/16 15:52 Dose: Not Given Quetiapine Fumarate (Seroquel) 62.5 mg PO HS [facility] PRN Reason: Protocol Stop: 07/19/16 20:59 Last Admin: 05/29/16 21:03 Dose: 62.5 mg Quetiapine Fumarate (Seroquel) 37.5 mg PO BID [facility] PRN Reason: Protocol Stop: 07/19/16 08:59 Last Admin: 05/29/16 16:09 Dose: 37.5 mg Sodium Phosphate (Fleet Enema) 135 ml RC Q48HR PRN PRN Reason: Constipation Stop: 07/18/16 18:58 Zolpidem Tartrate (Ambien) 5 mg PO HS PRN PRN Reason: Insomnia Stop: 07/18/16 19:45 General: No acute distress HEENT: Atraumatic Neck: Supple Cardiovascular: Regular rate Abdomen: Bowel sounds Extremities: Clubbing Assessment/Plan - Problem List Patient Problems: All Active Problems Cataract (Acute) H26.9 Dementia (Acute) F03.90 GERD (gastroesophageal reflux disease) (Acute) K21.9 HTN (hypertension) (Acute) I10 Insomnia (Acute) G47.00 Psychotic disorder (Acute) F29 Vitamin D deficiency (Acute) E55.9 - Plan Plan: monitor vitals/diet labs f/up consultants under psych care Nutritional Asmnt/Malnutr-PDOC - Dietary Evaluation Malnutrition Findings (Please click <Entered> for more info): Nutritional Asmnt/Malnutrition Start: 05/25/16 17: 58 Text: Status: Complete Freq: Document 05/25/16 17:58 GSUN (Rec: 05/25/16 18:04 GSUN [email or web address]) Nutritional Asmnt/Malnutrition Patient General Information Nutritional Screening Diagnosis Diagnosis Psychosis Pertinent Medical Hx/Surgical Hx Vitamin deficiency, HTN, GERD, insomnia Subjective Information 85 year old female from SNF. Pt had blanket covering whole body during visit, noted to be very confused, did not respond to RD's call. Pt transfered from [facility], RD has seen pt at [facility] on 05/18 : moderate fat/muscle wasting to temporals, chest, extremities. Pt avg PO intake 75% at [facility], 100% past 2 days, meeting nutritional needs. 05/18 bedscale 99.9lb, 101.9lb today. Current Diet Order/ Nutrition Support Regular, Boost TID Pertinent Medications Colace, Vitamin D, MOM, Protonix, Seroquel, Fleet Enema Pertinent Labs No current labs. 05/17 labs: reviewed. Nutritional Hx/Data Height 1.55 m Height (Calculated Centimeters) 154.9 Current Weight (lbs) 46.221 kg Weight (Calculated Kilograms) 46.2 Weight (Calculated Grams) 60210.1 [place] Body Weight 105lb Weight Status Approriate GI Symptoms Food Allergies No Skin Integrity/Comment: Jimbo 18. Skin intact. Current %PO Good (75-100%) Estimated Nutritional Goals Calories/Kcals/Kg IBW 105lb/47.7kg Kcals Calculated 1193-1431kcal (25-30kcal/kg) Protein Calculated 48g (1g/kg) Fluid: ml 1193-1431ml (1ml/kcal) Nutritional Problem 1. Problem Problem No nutritional problems at this time. Intervention/Recommendation Comments 1. Continue with regular diet with Boost TID. Avg PO intake is adequate to rpomote weight gain. 2. Monitor weight. 05/17 9.99lb , 05/25 101.9lb. Expected Outcomes/Goals Expected Outcomes/Goals 1. PO intake continue to meet 100% of estimated nutritional needs ot promtoe weight gain.
[2016-05-30] MEDS: Polyvinyl Alcohol Ophth Soln 15 mL Bottle EACH EYE SCH ×2 (09:38→18:57)
[2016-05-30] MEDS: Pantoprazole 40 mg EC Tab PO SCH (09:39)
--- NOTE | 2016-05-30 22:20 | Progress Notes ---
Covering for Dr. Rosales. Case was discussed with staff of the patient. The staff reported she has been ____. She is demented, confused, very hard to redirect. I did increase her Aricept dose yesterday to 10 mg a day and I will be increasing her Seroquel dose in the evening to help with her agitated behavior and so far no side effects with the medication, no sedation, no nausea, no extrapyramidal symptoms and we will continue to work with the patient in group therapy, milieu therapy, and adjust the medications as needed. JOB# [id number]
[2016-05-31] MEDS: Pantoprazole 40 mg EC Tab PO SCH (09:27)
[2016-05-31] MEDS: Polyvinyl Alcohol Ophth Soln 15 mL Bottle EACH EYE SCH ×2 (12:36→18:38)
[2016-05-31] MEDS: OLANZapine 5 mg Oral Disintegrating Tab PO SCH (18:39)
--- NOTE | 2016-06-01 04:59 | Progress Notes ---
SUBJECTIVE: Chart reviewed and the patient interviewed. Also, discussed the patient's condition with the staff and reviewed records and labs. The patient is still confused and agitated. The patient also is still pacing up and down the unit and aggressive with the staff and with peers. The patient also is talking to herself and actively responding to the stimuli and mumbles in a [place] language with words difficult to understand. The patient also is refusing to take medications for no apparent reason except her paranoia. Also, personal hygiene is still poor. The patient also is disheveled. ASSESSMENT: The patient is still psychotic and can be dangerous to others. TREATMENT PLAN: We will discontinue the Seroquel since the patient has been refusing to take it and we will start the patient on Zyprexa Zydis ____ better comply with the Zyprexa Zydis. We will start ____ twice a day. Also, continue to work on behavioral modification and her irritability and we will continue to follow up. JOB# [id number]
--- NOTE | 2016-06-01 05:06 | Progress Notes ---
SUBJECTIVE: The patient was seen in the dining room, having dinner. The patient appears to be calm, but according to the nurses, the patient still has episodes of outburst behavior and ____. OBJECTIVE: HEENT: Head is atraumatic and normocephalic. Eyes: Bilateral conjunctivae are clear from injections. NECK: Supple. No JVD. CARDIOVASCULAR: S1 and S2 heard without murmur. PULMONARY: Clear to auscultation. GASTROINTESTINAL: Soft and nontender without guarding. MUSCULOSKELETAL: No edema and clubbing. ASSESSMENT: 1. Schizophrenia. 2. Dementia. 3. Insomnia. 4. Hypertension. 5. Vitamin D deficiency. PLAN: We will continue to monitor the patient and keep her here in the Geropsych Unit and we will follow up with a psychiatrist to monitor the patient's behavior. JOB# [id number]
[2016-06-01] MEDS: Pantoprazole 40 mg EC Tab PO SCH (09:37)
[2016-06-01] MEDS: OLANZapine 5 mg Oral Disintegrating Tab PO SCH ×2 (09:37→18:57)
[2016-06-01] MEDS: Polyvinyl Alcohol Ophth Soln 15 mL Bottle EACH EYE SCH ×2 (09:40→18:57)
--- NOTE | 2016-06-02 05:55 | Progress Notes ---
SUBJECTIVE: Chart reviewed and the patient interviewed. Also discussed the patient's condition with the staff and reviewed records and labs. The patient is still angry and is still suspicious and paranoid. The patient also is disheveled and personal hygiene is poor. The patient also is agitated when staff tries to help her with her ADLs or tries to redirect her. She also is still actively hallucinating and talking to herself. ASSESSMENT: The patient is still psychotic. TREATMENT PLAN: Continue to monitor her behavior and her condition and continue adjusting psychotropic medications. Also, continue to work on her poor impulse control. JOB# [id number]
[2016-06-02] MEDS: OLANZapine 5 mg Oral Disintegrating Tab PO SCH ×2 (09:32→18:10)
[2016-06-02] MEDS: Pantoprazole 40 mg EC Tab PO SCH (09:33)
[2016-06-02] MEDS: Polyvinyl Alcohol Ophth Soln 15 mL Bottle EACH EYE SCH ×2 (15:50→18:10)
--- NOTE | 2016-06-03 00:46 | Progress Notes ---
The patient continues to be extremely angry and anxious. The patient also is still suspicious and paranoid and she is still actively responding to stimuli. The patient also is confused and she is still wandering around the unit aimlessly and gets agitated and aggressive when staff tried to help her with her ADLs or tries to redirect her. The patient also has still have severe mood swings. On the other hand, the patient continued to refuse to take Zyprexa or any medications in spite of the staff trial to help her and the patient had seen spitting medication and has been spitting on staff. ASSESSMENT: The patient is still aggressive and psychotic. TREATMENT PLAN: Discussed with the staff. Plans to enforce medications and encouraged the patient to take her medications orally. Also, the patient still have difficulty understanding the importance of all medications and taking it and she still can be dangerous to others. Continue working on trial to enforce medications for the patient and also continue to work on her anger and irritability and continue to follow up. [facility]# [id number]
[2016-06-03] MEDS: OLANZapine 5 mg Oral Disintegrating Tab PO SCH ×2 (09:30→17:16)
[2016-06-03] MEDS: Pantoprazole 40 mg EC Tab PO SCH (09:30)
[2016-06-03] MEDS: Polyvinyl Alcohol Ophth Soln 15 mL Bottle EACH EYE SCH ×2 (09:32→17:21)
--- NOTE | 2016-06-04 01:34 | Progress Notes ---
SUBJECTIVE: The patient was seen in her room lying in her bed. The patient is asleep, but is easily arousable. The patient is still confused. According to the nurses, the patient has episodes of outburst behavior and then also episodes of aggressive behavior towards the staff nurses. OBJECTIVE: HEENT: Head is atraumatic and normocephalic. Eyes: Bilateral pupils are equally round and reactive to light and accommodation. NECK: Supple. No JVD. CARDIOVASCULAR: S1 and S2 heard without murmur. PULMONARY: Clear to auscultation. GASTROINTESTINAL: Soft and nontender without guarding. MUSCULOSKELETAL: No edema. No clubbing. ASSESSMENT: 1. Schizophrenia. 2. Insomnia. 3. Dementia. 4. Vitamin D deficiency. 5. Hypertension. PLAN: We will continue to keeping monitor the patient in the Geropsych Unit and we will follow up with the psychiatrist. JOB# [id number]
--- NOTE | 2016-06-04 07:27 | Progress Notes ---
SUBJECTIVE: The patient was seen and evaluated. The patient's chart reviewed. Overnight staff had been reported that the patient continue with extremely poor ADLs, selectively mute and at times argumentative. Today on [id number] evaluation, the patient in her room, isolative, withdrawn and selectively mute, minimally interactive with the interview. MENTAL STATUS EXAMINATION: Withdrawn, slightly mute, depressed, melancholic, poor insight, judgment and impulse control. ASSESSMENT AND PLAN: The patient is an 85-year-old female who continues to be at times very aggressive, agitated and wandering around the unit aimlessly who also presents also very withdrawn. In the meantime, we will continue with primary psychiatrist treatment plan and goals. As she presents easily agitated and paranoid and selectively mute, we will continue with Aricept 10 mg, Namenda and Zydus 5 mg twice a day to target the patient's still active psychotic symptoms. JOB# [id number]
[2016-06-04] MEDS: Pantoprazole 40 mg EC Tab PO SCH (09:38)
[2016-06-04] MEDS: OLANZapine 5 mg Oral Disintegrating Tab PO SCH ×2 (09:38→16:34)
[2016-06-04] MEDS: Polyvinyl Alcohol Ophth Soln 15 mL Bottle EACH EYE SCH (09:39)
--- NOTE | 2016-06-05 01:41 | Progress Notes ---
SUBJECTIVE: The patient was seen, chart reviewed, discussed with staff. The patient currently in the hospital, aggressive, confused, anxious, poor ADLs, selectively mute at times, isolative, withdrawn. On [id number], the patient remains confused, unable to really tell me any information about why she is here, still wandering the unit aimlessly, at times getting into physical altercations with other patients, and not really saying much to me. ASSESSMENT AND PLAN: The patient is still aggressive at times, fighting with other patients, withdrawn, very confused. Medications were reviewed. Labs were reviewed. The patient is not safe for discharge, we are trying to stabilize the patient at this time. We will continue to adjust medications, continue with redirection and orientation. JOB# [id number]
[2016-06-05] MEDS: OLANZapine 5 mg Oral Disintegrating Tab PO SCH ×2 (09:44→17:13)
[2016-06-05] MEDS: Pantoprazole 40 mg EC Tab PO SCH (09:45)
[2016-06-05] MEDS: Polyvinyl Alcohol Ophth Soln 15 mL Bottle EACH EYE SCH ×2 (09:55→17:13)
--- NOTE | 2016-06-06 07:21 | Progress Notes ---
SUBJECTIVE: Chart reviewed and the patient interviewed. Also, discussed the patient's condition with the staff and reviewed records and labs. The patient is still confused and she is still easily agitated and irritable. The patient also still needs redirections and she gets agitated and aggressive when staff tries to redirect her. The patient is also still severely angry and pacing up and down the unit, mumbling in [place]uvian language. On the other hand, the patient starts to be more compliant with taking her medications with no side effects of medication. ASSESSMENT: The patient is still agitated and can be dangerous to others and aggressive. TREATMENT PLAN: We will continue monitoring her behavior and her condition closely. Also, continue to work on her poor impulse control. Also, discussed with case preparer and liner yesterday placement issue and is still working on placement issue and on discharge plans. JOB# [id number]
[2016-06-06] MEDS: Polyvinyl Alcohol Ophth Soln 15 mL Bottle EACH EYE SCH ×2 (16:28→17:13)
[2016-06-06] MEDS: Pantoprazole 40 mg EC Tab PO SCH (16:29)
[2016-06-06] MEDS: OLANZapine 10 mg Oral Disintegrating Tab PO SCH (20:23)
--- NOTE | 2016-06-06 22:12 | Progress Notes ---
SUBJECTIVE: The patient was seen in her room lying on the bed. The patient is a poor historian and currently unable to start the conversation. No episodes of aggressive behavior according to the nurses. The patient takes her medication regularly. OBJECTIVE: HEENT: Head is atraumatic and normocephalic. Eyes: Bilateral conjunctivae are clear for injections. NECK: Supple. No JVD. CARDIOVASCULAR: S1 and S2 heard without murmur. PULMONARY: Clear to auscultation. GASTROINTESTINAL: Soft and nontender without guarding. MUSCULOSKELETAL: No edema and no clubbing noted. ASSESSMENT: 1. Schizophrenia. 2. Insomnia. 3. Dementia. 4. Vitamin D deficiency. 5. Hypertension. PLAN: We will continue to keep and monitor the patient in Geropsych Unit and follow up with the psychiatrist. JOB# [id number]
--- NOTE | 2016-06-07 03:15 | Progress Notes ---
SUBJECTIVE: Chart reviewed and the patient interviewed. Also, discussed the patient's condition with the staff and reviewed records and labs. The patient is still anxious and is still in irritable mood. The patient also is still rambling and she is still having severe mood swings and severe anxiety and irritability. The patient also is still disheveled and she is still threatening peers and staff. She also is still paranoid and she is still unable to follow directions. The patient refused to take her medications this morning, but she did take it last night. ASSESSMENT: The patient is still psychotic and agitated. TREATMENT PLAN: We will continue monitoring her behavior and her condition closely. Also, we will change Zyprexa to 10 mg at bedtime. Also discussed with keycase assembler discharge plans and it seems that the patient is still agitated and aggressive and not accepted by placement to go back yet. JOB# [id number]
[2016-06-07] MEDS: OLANZapine 5 mg Oral Disintegrating Tab PO SCH (14:05)
[2016-06-07] MEDS: Polyvinyl Alcohol Ophth Soln 15 mL Bottle EACH EYE SCH ×2 (14:09→17:54)
[2016-06-07] MEDS: Pantoprazole 40 mg EC Tab PO SCH (14:11)
[2016-06-07] MEDS: OLANZapine 10 mg Oral Disintegrating Tab PO SCH (20:21)
--- NOTE | 2016-06-08 02:37 | Progress Notes ---
SUBJECTIVE: Chart reviewed and the patient interviewed. Also, discussed the patient's condition with the staff and reviewed records and labs. The patient is still extremely agitated, and she is still in angry and in irritable mood. The patient also is still having severe mood swings and severe irritability. The patient also still needs lots of redirections. The patient also is reluctant to take medications and she still has difficulty taking medications, but she did take her medications last night. She also still has mood swings. Otherwise, the patient is compliant with taking her medications with no side effects of Zyprexa. ASSESSMENT: The patient is still psychotic. TREATMENT PLAN: We will continue monitoring her behavior and her condition closely. Also, discussed with special education case manager discharge plans and placement issue. Also, we will increase Zyprexa to 5 mg in the morning and 10 mg at bedtime and we will continue to follow up closely. [facility]# [id number]
--- NOTE | 2016-06-08 09:46 | General Progress Note ---
Subjective - Review of Systems Service Date: 06/08/16 Events since last encounter: no distress Subjective: confused Objective - Physical Exam Vitals and I&O: Vital Signs Temp 98.1 F 06/07/16 21:05 Pulse 83 06/07/16 21:05 Resp 18 06/07/16 21:05 BP 113/62 06/07/16 21:05 Pulse Ox 97 06/07/16 21:05 Intake & Output 06/07/16 06/08/16 06/08/16 18:59 06:59 18:59 Intake Total 1999 Balance 1999 Intake: Oral 1999 Other: # Voids 4 2 2 # Bowel Movements 1 Active Medications: Current Medications Acetaminophen (Tylenol) 650 mg PO Q4H PRN PRN Reason: Mild Pain/Headache/T above 101 Stop: 07/18/16 18:43 Last Admin: 05/30/16 16:21 Dose: 650 mg Artificial Tears (Artificial Tears Ophth Soln) 1 drop EACH EYE BID [facility] Stop: 07/19/16 08:59 Last Admin: 06/07/16 17:54 Dose: Not Given Bisacodyl (Dulcolax 10 Mg Supp) 10 mg RC DAILY PRN PRN Reason: Constipation Stop: 07/18/16 18:58 Docusate Sodium (Colace) 100 mg PO BID [facility] Stop: 07/19/16 08:59 Last Admin: 06/07/16 17:52 Dose: 100 mg Donepezil HCl (Aricept) 10 mg PO DAILY [facility] Stop: 07/28/16 09:00 Last Admin: 06/07/16 14:09 Dose: Not Given Ergocalciferol (Vitamin D) 50,000 iu PO QFRI [facility] Stop: 07/18/16 19:29 Last Admin: 06/02/16 20:28 Dose: 50,000 iu Glucagon (Glucagen) 1 mg IM PRN PRN PRN Reason: Hypoglycemia BG < 50 Stop: 07/18/16 18:59 Hydrochlorothiazide (Hctz) 12.5 mg PO DAILY [facility] Stop: 07/19/16 08:59 Last Admin: 06/07/16 09:00 Dose: Not Given Isosorbide Dinitrate (Isordil) 10 mg PO TID [facility] Stop: 07/18/16 20:59 Last Admin: 06/07/16 20:20 Dose: 10 mg Lisinopril (Zestril) 10 mg PO DAILY [facility] Stop: 07/19/16 08:59 Last Admin: 06/07/16 09:00 Dose: Not Given Lorazepam (Ativan) 0.5 mg PO Q4HR PRN; Protocol PRN Reason: Anxiety Stop: 06/18/16 19:45 Last Admin: 06/06/16 17:13 Dose: 0.5 mg Magnesium Hydroxide (Milk Of Magnesia) 30 ml PO DAILY PRN PRN Reason: Constipation Stop: 07/18/16 18:43 Memantine (Namenda) 10 mg PO BID [facility] Stop: 07/19/16 08:59 Last Admin: 06/07/16 14:11 Dose: Not Given Olanzapine (Zyprexa Zydis) 10 mg PO HS [facility] PRN Reason: Protocol Stop: 08/05/16 20:59 Last Admin: 06/07/16 20:21 Dose: 10 mg Olanzapine (Zyprexa Zydis) 5 mg PO DAILY [facility] PRN Reason: Protocol Stop: 08/06/16 08:59 Last Admin: 06/07/16 14:05 Dose: 5 mg Pantoprazole Sodium (Protonix) 40 mg PO DAILY [facility] Stop: 07/19/16 08:59 Last Admin: 06/07/16 14:11 Dose: Not Given Sodium Phosphate (Fleet Enema) 135 ml RC Q48HR PRN PRN Reason: Constipation Stop: 07/18/16 18:58 Zolpidem Tartrate (Ambien) 5 mg PO HS PRN PRN Reason: Insomnia Stop: 07/18/16 19:45 Last Admin: 06/07/16 20:20 Dose: 5 mg General: No acute distress HEENT: Atraumatic Neck: Supple Cardiovascular: Regular rate Abdomen: Bowel sounds Extremities: Clubbing Assessment/Plan - Problem List Patient Problems: All Active Problems Cataract (Acute) H26.9 Dementia (Acute) F03.90 GERD (gastroesophageal reflux disease) (Acute) K21.9 HTN (hypertension) (Acute) I10 Insomnia (Acute) G47.00 Psychotic disorder (Acute) F29 Vitamin D deficiency (Acute) E55.9 - Plan Plan: monitor vitals/diet labs f/up consultants under psych care Nutritional Asmnt/Malnutr-PDOC - Dietary Evaluation Malnutrition Findings (Please click <Entered> for more info): Nutritional Asmnt/Malnutrition Start: 05/25/16 17: 58 Text: Status: Complete Freq: Document 05/25/16 17:58 TERESA (Rec: 05/25/16 18:04 [email or web address] [email or web address]) Nutritional Asmnt/Malnutrition Patient General Information Nutritional Screening Diagnosis Diagnosis Psychosis Pertinent Medical Hx/Surgical Hx Vitamin deficiency, HTN, GERD, insomnia Subjective Information 85 year old female from SNF. Pt had blanket covering whole body during visit, noted to be very confused, did not respond to RD's call. Pt transfered from [facility], RD has seen pt at [facility] on 05/18 : moderate fat/muscle wasting to temporals, chest, extremities. Pt avg PO intake 75% at [facility], 100% past 2 days, meeting nutritional needs. 05/18 bedscale 99.9lb, 101.9lb today. Current Diet Order/ Nutrition Support Regular, Boost TID Pertinent Medications Colace, Vitamin D, MOM, Protonix, Seroquel, Fleet Enema Pertinent Labs No current labs. 05/17 labs: reviewed. Nutritional Hx/Data Height 1.55 m Height (Calculated Centimeters) 154.9 Current Weight (lbs) 46.221 kg Weight (Calculated Kilograms) 46.2 Weight (Calculated Grams) 21955.1 Ozan Body Weight 105lb Weight Status Approriate GI Symptoms Food Allergies No Skin Integrity/Comment: Jimbo 18. Skin intact. Current %PO Good (75-100%) Estimated Nutritional Goals Calories/Kcals/Kg IBW 105lb/47.7kg Kcals Calculated 1193-1431kcal (25-30kcal/kg) Protein Calculated 48g (1g/kg) Fluid: ml 1193-1431ml (1ml/kcal) Nutritional Problem 1. Problem Problem No nutritional problems at this time. Intervention/Recommendation Comments 1. Continue with regular diet with Boost TID. Avg PO intake is adequate to rpomote weight gain. 2. Monitor weight. 05/17 9.99lb , 05/25 101.9lb. Expected Outcomes/Goals Expected Outcomes/Goals 1. PO intake continue to meet 100% of estimated nutritional needs ot promtoe weight gain.
[2016-06-08] MEDS: Polyvinyl Alcohol Ophth Soln 15 mL Bottle EACH EYE SCH ×2 (10:25→17:20)
[2016-06-08] MEDS: OLANZapine 5 mg Oral Disintegrating Tab PO SCH (10:42)
[2016-06-08] MEDS: Pantoprazole 40 mg EC Tab PO SCH (10:42)
[2016-06-08] MEDS: OLANZapine 10 mg Oral Disintegrating Tab PO SCH (20:47)
--- NOTE | 2016-06-09 05:27 | Progress Notes ---
SUBJECTIVE: Chart reviewed and the patient interviewed. Also, discussed the patient's condition with the staff and reviewed records and labs. The patient continued to be in angry and in irritable mood. The patient also is still suspicious and is still paranoid and pacing up and down the unit aimlessly. She still needs also redirection and she gets agitated when the staff tries to redirect her although she seems to be slightly better than before with redirections. Otherwise, the patient is compliant with taking her medications with no side effects of medications. ASSESSMENT: The patient seems to be slightly less agitated and less psychotic. TREATMENT PLAN: Continue monitoring her behavior and her condition closely. Also, continue to work on behavioral modification and her irritability and we will continue to follow up. JOB# [id number]
[2016-06-09] MEDS: OLANZapine 5 mg Oral Disintegrating Tab PO SCH (09:06)
[2016-06-09] MEDS: Pantoprazole 40 mg EC Tab PO SCH (09:06)
[2016-06-09] MEDS: Polyvinyl Alcohol Ophth Soln 15 mL Bottle EACH EYE SCH ×2 (09:11→17:42)
--- NOTE | 2016-06-09 12:01 | General Progress Note ---
Subjective - Review of Systems Events since last encounter: no distress Subjective: confused Objective - Physical Exam Vitals and I&O: Vital Signs Temp 97.6 F 06/08/16 18:25 Pulse 80 06/08/16 20:46 Resp 18 06/08/16 18:25 BP 126/64 06/08/16 20:46 Pulse Ox 97 06/08/16 18:25 Intake & Output 06/08/16 06/09/16 06/09/16 18:59 06:59 18:59 Intake Total 800 Balance 800 Intake: Oral 800 Other: # Voids 3 2 # Bowel Movements 1 Active Medications: Current Medications Acetaminophen (Tylenol) 650 mg PO Q4H PRN PRN Reason: Mild Pain/Headache/T above 101 Stop: 07/18/16 18:43 Last Admin: 05/30/16 16:21 Dose: 650 mg Artificial Tears (Artificial Tears Ophth Soln) 1 drop EACH EYE BID [facility] Stop: 07/19/16 08:59 Last Admin: 06/09/16 09:11 Dose: 1 drop Bisacodyl (Dulcolax 10 Mg Supp) 10 mg RC DAILY PRN PRN Reason: Constipation Stop: 07/18/16 18:58 Docusate Sodium (Colace) 100 mg PO BID [facility] Stop: 07/19/16 08:59 Last Admin: 06/09/16 09:04 Dose: 100 mg Donepezil HCl (Aricept) 10 mg PO DAILY [facility] Stop: 07/28/16 09:00 Last Admin: 06/09/16 09:03 Dose: 10 mg Ergocalciferol (Vitamin D) 50,000 iu PO QFRI [facility] Stop: 07/18/16 19:29 Last Admin: 06/02/16 20:28 Dose: 50,000 iu Glucagon (Glucagen) 1 mg IM PRN PRN PRN Reason: Hypoglycemia BG < 50 Stop: 07/18/16 18:59 Hydrochlorothiazide (Hctz) 12.5 mg PO DAILY [facility] Stop: 07/19/16 08:59 Last Admin: 06/09/16 09:04 Dose: Not Given Isosorbide Dinitrate (Isordil) 10 mg PO TID [facility] Stop: 07/18/16 20:59 Last Admin: 06/09/16 09:05 Dose: Not Given Lisinopril (Zestril) 10 mg PO DAILY [facility] Stop: 07/19/16 08:59 Last Admin: 06/09/16 09:05 Dose: Not Given Lorazepam (Ativan) 0.5 mg PO Q4HR PRN; Protocol PRN Reason: Anxiety Stop: 06/18/16 19:45 Last Admin: 06/06/16 17:13 Dose: 0.5 mg Magnesium Hydroxide (Milk Of Magnesia) 30 ml PO DAILY PRN PRN Reason: Constipation Stop: 07/18/16 18:43 Memantine (Namenda) 10 mg PO BID [facility] Stop: 07/19/16 08:59 Last Admin: 06/09/16 09:06 Dose: 10 mg Olanzapine (Zyprexa Zydis) 10 mg PO HS [facility] PRN Reason: Protocol Stop: 08/05/16 20:59 Last Admin: 06/08/16 20:47 Dose: 10 mg Olanzapine (Zyprexa Zydis) 5 mg PO DAILY [facility] PRN Reason: Protocol Stop: 08/06/16 08:59 Last Admin: 06/09/16 09:06 Dose: 5 mg Pantoprazole Sodium (Protonix) 40 mg PO DAILY [facility] Stop: 07/19/16 08:59 Last Admin: 06/09/16 09:06 Dose: 40 mg Sodium Phosphate (Fleet Enema) 135 ml RC Q48HR PRN PRN Reason: Constipation Stop: 07/18/16 18:58 Zolpidem Tartrate (Ambien) 5 mg PO HS PRN PRN Reason: Insomnia Stop: 07/18/16 19:45 Last Admin: 06/07/16 20:20 Dose: 5 mg General: No acute distress HEENT: Atraumatic Neck: Supple Cardiovascular: Regular rate Abdomen: Bowel sounds Assessment/Plan - Problem List Patient Problems: All Active Problems Cataract (Acute) H26.9 Dementia (Acute) F03.90 GERD (gastroesophageal reflux disease) (Acute) K21.9 HTN (hypertension) (Acute) I10 Insomnia (Acute) G47.00 Psychotic disorder (Acute) F29 Vitamin D deficiency (Acute) E55.9 - Plan Plan: monitor vitals/diet labs f/up consultants under psych care Nutritional Asmnt/Malnutr-PDOC - Dietary Evaluation Malnutrition Findings (Please click <Entered> for more info): Nutritional Asmnt/Malnutrition Start: 05/25/16 17: 58 Text: Status: Complete Freq: Document 05/25/16 17:58 GSUN (Rec: 05/25/16 18:04 [email or web address] [email or web address]) Nutritional Asmnt/Malnutrition Patient General Information Nutritional Screening Diagnosis Diagnosis Psychosis Pertinent Medical Hx/Surgical Hx Vitamin deficiency, HTN, GERD, insomnia Subjective Information 85 year old female from SNF. Pt had blanket covering whole body during visit, noted to be very confused, did not respond to RD's call. Pt transfered from [facility], RD has seen pt at [facility] on 05/18 : moderate fat/muscle wasting to temporals, chest, extremities. Pt avg PO intake 75% at [facility], 100% past 2 days, meeting nutritional needs. 05/18 bedscale 99.9lb, 101.9lb today. Current Diet Order/ Nutrition Support Regular, Boost TID Pertinent Medications Colace, Vitamin D, MOM, Protonix, Seroquel, Fleet Enema Pertinent Labs No current labs. 05/17 labs: reviewed. Nutritional Hx/Data Height 1.55 m Height (Calculated Centimeters) 154.9 Current Weight (lbs) 46.221 kg Weight (Calculated Kilograms) 46.2 Weight (Calculated Grams) 88689.1 [place] Body Weight 105lb Weight Status Approriate GI Symptoms Food Allergies No Skin Integrity/Comment: Jimbo 18. Skin intact. Current %PO Good (75-100%) Estimated Nutritional Goals Calories/Kcals/Kg IBW 105lb/47.7kg Kcals Calculated 1193-1431kcal (25-30kcal/kg) Protein Calculated 48g (1g/kg) Fluid: ml 1193-1431ml (1ml/kcal) Nutritional Problem 1. Problem Problem No nutritional problems at this time. Intervention/Recommendation Comments 1. Continue with regular diet with Boost TID. Avg PO intake is adequate to rpomote weight gain. 2. Monitor weight. 05/17 9.99lb , 05/25 101.9lb. Expected Outcomes/Goals Expected Outcomes/Goals 1. PO intake continue to meet 100% of estimated nutritional needs ot promtoe weight gain.
--- NOTE | 2016-06-09 21:47 | Discharge Summary ---
PRIMARY DIAGNOSIS: Unspecified psychosis. REASON FOR HOSPITALIZATION: The patient was admitted to the hospital because of increased agitation and irritability and increased mood swings and aggression and inability to follow directions. HOSPITAL COURSE: The patient continued to be extremely agitated and in irritable mood. The patient also was pacing up and down. Rambling in Luxembourgish language that is ____. The patient also was not able to follow any directions. Gradually, the patient's affect was brighter. The patient was given Zyprexa and the dose adjusted to 5 mg in the morning and 10 mg at bedtime. The patient was calmer. She was less irritable and less agitated. She is also easier to follow directions and the patient was discharged from the hospital. Physical exam of the patient was basically within normal. AFTER DISCHARGE PLANS: The patient discharged from the hospital with plan to continue her treatment as an outpatient. EXPECTED OUTCOME AFTER DISCHARGE: Fair if the patient continued to take her medications. [facility] JOB# [id number]
--- NOTE | 2016-06-12 09:15 | Discharge Summary ---
DATE OF DISCHARGE: 06/09/2016 This patient is directly seen by me as well as ____ [facility]. Apparently, the patient was very agitated and the patient was confused and was sent to [facility]. The patient was seen in the Emergency Room for increased agitation, and the patient had a workup done for the UTI. The patient also has iron deficiency anemia, vitamin deficiency, hypertension, GERD, insomnia as well as dementia, and the patient admitted for acute psychosis, dementia, hypertension, vitamin D deficiency, and the patient was admitted to psych unit for unspecified psychosis. The patient was seen by ____ and I followed her medical issues and the patient improved. The patient was in stable condition. On 06/09/2016, the patient was discharged to [facility] where we are following the patient. FINAL DIAGNOSES: 1. Psychosis, under control. 2. Increased agitation, under control. 3. History of bipolar. 4. History of dementia. 5. History of vitamin D deficiency. JOB# [id number]
== END 2016-06-09 19:00 | DRG 751 ==
LOC: GERO 16:00
PROVIDERS: ADMIT Psychiatry & Neurology Psychiatry; ATTEND Psychiatry & Neurology Psychiatry
DX: F29 Unspecified psychosis not due to a substance or known physiological condition (principal); F03.91 Unspecified dementia, unspecified severity, with behavioral disturbance; K21.9 Gastro-esophageal reflux disease without esophagitis; I10 Essential (primary) hypertension; G47.00 Insomnia, unspecified; E55.9 Vitamin D deficiency, unspecified; F20.9 Schizophrenia, unspecified
CPT/HCPCS: 90899; J2060; Z7610

== ENCOUNTER 2018-09-03 22:04 | Inpatient (IN) | payer MEDICAID ==
--- NOTE | 2018-09-03 22:13 | ED Physician Chart ---
ED Chief Complaint/HPI - Patient Information Date Seen:: 09/03/18 Time Seen:: 22:13 Chief Complaint:: Blood on diapers History of Present Illness:: 88 yo female was brought from [facility] to ER due to 2-3 episodes of blood on diapers today to rule out GI bleed. Pt became increasingly agitated and confused, constantly trying to stand on the gurney. Allergies:: Allergies Allergy/AdvReac Type Severity Reaction Status Date / Time No Known Allergies Allergy Verified 12/24/15 23:16 Vitals:: Vital Signs - 8 hr 09/03/18 22:06 Temp 97.7 F HR 46 RR 15 BP 108/54 O2 Sat % 99 ED Review of Systems - Review of Systems General/Constitutional: No fever, No chills Skin: No rash Head: No headache Eyes: No pain ENT: No nasal drainage Neck: No neck pain Cardio Vascular: No chest pain Pulmonary: No SOB GI: No nausea, No vomiting, Hematochezia Musculoskeletal: No bone or joint pain Psychiatric: Other (Dementia) Neurological: No syncope ED Past Medical History - Past Medical History Past Medical History: HTN, Dyslipidemia, PUD/GERD, Dementia, Other (OSTEOPOROSIS , R FEMUR FRACTURE, ANEMIA, VITAMIN D DEFICIENCY, CATARACT, INSOMNIA, VITAMIN B12 DEFICIENCY) Social History: Non Smoker, No Alcohol, No Drug Use Psychiatricy History: Other (Psychosis) Family Medical History - Family Member Mother History Unknown: Yes Ethnicity: ED Physical Exam - Physical Examination General/Constitutional: Awake Other Gen/Cons comments:: Confused Head: Atraumatic Eyes: PERRL, EOMI Skin: No skin lesions ENMT: Nasal exam nl Neck: No nuchal rigidity Respiratory: Clear to Auscultation Cardio Vascular: RRR, No murmur, gallop, rubs, NL S1 S2 GI: Nondistended Extremities: normal strength in all extremities Neuro/Psych: No focal deficits ED Labs/Radiology/EKG Results - Radiology Results Results: CT abd/pelv wo contrast: moderate stool in the rectum, no colonic wall thickening, diverticulosis, right femur fixation with hardware, lumbar spine degenerative changes. - EKG Interpretations EKG Time:: 22:50 Rate & Rhythm: 47 bpm, sinus bradycardia [place]: Normal axis Comments:: Non specific T wave abnormalities ED Assessment - Assessment General Assessment: Possible lower GI bleed with hematochezia Dehydration Mild leukocytosis Mild anemia, normocytic Dementia Psychosis Assessment/Comments:: CBC, CMP, UA CT abdomen/pelvis wo contrast NS 1L IV bolus Benadryl 25 mg IV for agitation ED Septic Shock - . Is Septic Shock (SBP<90, OR Lactate>4 mmol\L) present?: No - <6hrs of presentation: Vital Signs: Vital Signs - 8 hr 09/03/18 22:06 Temp 97.7 F HR 46 RR 15 BP 108/54 O2 Sat % 99 ED Reassessment (Disposition) - Reassessment Reassessment Condition:: Improved - Patient Disposition Discharge/Transfer:: Acute Care w/in this hosp Admitting Medical Physician:: Mahin Perkins
[2018-09-03 22:36] LABS: % BASOPHILS 0.3 % (0.0-2.0); % EOSINOPHILS 1.3 % (0.0-5.0); % MONOCYTES 7.6 % (2.0-10.0); % NEUTROPHILS 77.8 % (40.0-80.0); EOSINOPHILE ABSOLUTE 0.1 Th/cmm (0.1-0.4); HEMATOCRIT 34.9 % (41.0-60); HEMOGLOBIN 11.8 gm/dL (12-16); LYMPHOCYTE ABSOLUTE 1.4 Th/cmm (1.5-3.0); MEAN CELL VOLUME 88.8 fl (81-100); MEAN CORPUSCULAR HEMOGLOBIN 30.1 pg (27.0-31.0); MEAN CORPUSCULAR HGB CONC 33.9 pg (28.0-36.0); MONOCYTE ABSOLUTE 0.8 Th/cmm (0.3-1.0); NEUTROPHILE ABSOLUTE 8.7 Th/cmm (1.8-8.0); PLATELET COUNT 245 Th/cmm (150-400); RED BLOOD COUNT 3.94 Mil/cmm (3.80-5.20)
[2018-09-03 22:44] LABS: INR 0.97 (0.5-1.4)
[2018-09-03 22:47] LABS: ALB/GLOB RATIO 1.1 (1.0-1.8); ALBUMIN 3.5 gm/dL (3.7-5.3); ALKALINE PHOSPHATASE 98 U/L (34-104); ANION GAP 11.9 (7.0-16.0); BILIRUBIN,TOTAL 0.4 mg/dL (0.3-1.0); BUN - UREA NITROGEN 28 mg/dL (7-25); CALCIUM SERUM 9.7 mg/dL (8.6-10.3); CARBON DIOXIDE 26.8 mEq/L (21.0-31.0); CHLORIDE 103 mEq/L (98-107); CREATININE - SERUM 0.8 mg/dL (0.6-1.2); GLUCOSE 81 mg/dL (70-105); POTASSIUM SERUM 3.7 mEq/L (3.5-5.1); SGOT 14 U/L (13-39); SGPT/ALT 8 U/L (7-52); SODIUM SERUM 138 mEq/L (136-145); TOTAL PROTEIN,SERUM 6.6 gm/dL (6.0-8.3)
[2018-09-03] MEDS ORDERED: Sodium Chloride 0.9% 1,000 ML IV ONE (23:18)
[2018-09-04 01:18] LABS: CHOLESTEROL 140 mg/dL (<200); HDL -HIGH DENSITY LIPOPROTEIN 33 mg/dL (23-92); TRIGLYCERIDES 130 mg/dL (<150)
[2018-09-04] MEDS: Sodium Chloride 0.45% 1,000 ML IV SCH ×3 (01:52→20:34)
[2018-09-04] MEDS ORDERED: Polyvinyl Alcohol Ophth Soln 15 mL Bottle EACH EYE PRN (03:34)
[2018-09-04] MEDS ORDERED: Magnesium Hydroxide (MOM) 30 mL UDC PO PRN (03:39)
[2018-09-04] MEDS ORDERED: Acetaminophen 500 MG TAB PO PRN (04:05)
[2018-09-04] MEDS ORDERED: Fleet Enema 135 mL RC PRN (04:06)
[2018-09-04] MEDS ORDERED: Non-Formulary Item 1 EA (Cholecalciferol (Vitamin D3) [Vitamin D3] 1 TAB) PO SCH (04:15)
[2018-09-04] MEDS ORDERED: Calcium Carb/Vit D 500 mg/200 U Tab PO SCH (09:00)
[2018-09-04] MEDS ORDERED: Non-Formulary Item 1 EA (Cranberry Conc/C/Bacill Coag [Cranberry Tablet] 1 EACH) PO SCH (09:00)
[2018-09-04] MEDS: Calcium Carb/Vit D 500 mg/200 U Tab PO SCH ×2 (09:45→16:52)
[2018-09-04] MEDS: Multivitamin w/ Minerals Tab PO SCH (09:46)
--- NOTE | 2018-09-04 10:23 | History and Physical ---
History of Present Illness - HPI Chief Complaint: 88 y/o female patient was brought into ER due to having blood in diapers. HPI: 88 y/o female patient was admitted to [facility] due to having blood in diapers. Patient has multiple medical problems which include, History of Dementia, Dyslipidemia, Osteoporosis, Right femur fracture, Anemia, Vitamin D Deficiency, Cataract, Insomnia, Vitamin B-12 Deficiency and Psychosis. Patient had an ER assessment and a complete workup done. Patient was diagnosed with Possible lower GI bleed with Hematochezia, Dehydration, Mild Leukocytosis, Mild Anemia, Dementia and Psychosis. Patient will have a GI consult, ID consult and Psych consult. I will follow, treat and monitor patient. Patient will continue current treatment plan as ordered. Vital Signs: Last Vital Signs Temp 97 F 09/04/18 08:00 Pulse 50 09/04/18 08:00 Resp 20 09/04/18 08:00 BP 171/47 09/04/18 08:00 Pulse Ox 93 09/04/18 08:00 Past Medical History Cardiovascular: Report: HTN Pulmonary: Report: No Pertinent Hx COLORS CUSTODIAN: Report: Dementia GI: Report: GERD, Peptic Ulcer Psych: Report: Psychosis Musculoskeletal: Report: Other (Hx of Osteoporosis.) Rheumatologic: Report: No pertinent Hx Infectious Disease: Report: No Pertinent Hx Renal/: Report: No Pertinent Hx Endocrine: Report: No Pertinent Hx Dermatology: Report: No Pertinent Hx - Past Surgical History Past Surgical History: No pertinent Hx Family Medical History - Family Member Mother History Unknown: Yes Ethnicity: Social History Smoke: # pack years Alcohol: None Drugs: None Lives: [facility] Domestic Violence: Negative Health Maintenance Health Maintenance: Other (see charts) - Medications Home Medications: Home Medication Medication Instructions Recorded Type Acetaminophen [Tylenol Extra 1,000 mg PO Q4HR PRN tab 09/10/18 Rx Strength] Acetaminophen [Tylenol] 650 mg PO Q4H PRN tab 09/10/18 Rx Bisacodyl [Dulcolax 10 Mg Supp] 10 mg RC DAILY PRN sup 09/10/18 Rx Calcium Carb/Vit D 500mg/200U 1 tab PO BID tab 09/10/18 Rx [Oscal w/Vitamin D] Cholecalciferol (Vit D3) [Vitamin 5,000 iu PO QFRI tab 09/10/18 Rx D3] Docusate Sodium [Colace] 250 mg PO DAILY sgl 09/10/18 Rx Donepezil Hcl [Aricept] 10 mg PO HS tab 09/10/18 Rx Fleet Enema 135 ml RC Q48H PRN btl 09/10/18 Rx Hydrochlorothiazide [Hctz*] 12.5 mg PO DAILY tab 09/10/18 Rx Hydrocortisone Acetate [Anusol-Hc] 25 mg RC BID sup 09/10/18 Rx Isosorbide Dinitrate [Isordil] 5 mg PO TID tab 09/10/18 Rx Loratadine [Claritin] 10 mg PO DAILY PRN tab 09/10/18 Rx Magnesium Hydroxide [Milk of 30 ml PO HS PRN udc 09/10/18 Rx Magnesia] Multivitamin w/ Minerals 1 tab PO DAILY tab 09/10/18 Rx [Theragran M] Polyethylene Glycol 3350 [Miralax] 17 gm PO DAILY pack 09/10/18 Rx Polyvinyl Alcohol Ophth Soln 1 drop EACH EYE BID PRN drops 09/10/18 Rx [Artificial Tears Ophth Soln*] risperiDONE [RisperDAL] 0.25 mg PO HS tab 09/10/18 Rx Other Medications: please see medication reconciliation sheet. - Allergies Allergies/Adverse Reactions: Allergies Allergy/AdvReac Type Severity Reaction Status Date / Time No Known Allergies Allergy Verified 12/24/15 23:16 Review of Systems - Review of Systems Constitutional: Report: Weakness Eyes: Report: No Significant ENT: Report: No Significant Respiratory: Report: No Significant Cardiovascular: Report: No Significant Gastrointestinal: Report: No Significant Genitourinary: Report: No Significant Musculoskeletal: Report: No Significant Skin: Report: No Significant Neurological: Report: No Significant Physical Exam - Physical Exam HEENT: Report: Ears Nose Throat within normal limits Neck: Report: Within normal limits Cardiovascular Systems: Report: +s1/s2 noted Respiratory: Report: Breath Sounds are within normal limits Abdomen: Report: Non-tender to palpation Back: Report: Inspection of back is within normal limits. Extremities: Report: Non-tender to palpation. Skin: Report: Color of skin is within normal limits Neuro/Psych: Report: Mood affect is within normal limits - Lab Results All Lab Results last 24 hours: Laboratory Results - last 24 hr 09/03/18 09/03/18 09/03/18 22:20 22:20 22:20 WBC 11.0 H RBC 3.94 Hgb 11.8 L Hct 34.9 L MCV 88.8 MCH 30.1 MCHC Differential 33.9 RDW 13.0 Plt Count 245 MPV 8.2 Neutrophils % 77.8 Lymphocytes % 13.0 L Monocytes % 7.6 Eosinophils % 1.3 Basophils % 0.3 PT 10.1 INR 0.97 PTT (Actin FS) 24.1 L Sodium 138 Potassium 3.7 Chloride 103 Carbon Dioxide 26.8 Anion Gap 11.9 BUN 28 H Creatinine 0.8 Est GFR ( Amer) TNP Est GFR (Non-Af Amer) TNP BUN/Creatinine Ratio 35.0 Glucose 81 Calcium 9.7 Total Bilirubin 0.4 AST 14 ALT 8 Alkaline Phosphatase 98 Troponin I Total Protein 6.6 Albumin 3.5 L Globulin 3.1 Albumin/Globulin Ratio 1.1 Triglycerides Cholesterol LDL Cholesterol Direct HDL Cholesterol 09/03/18 09/04/18 22:20 00:00 WBC RBC Hgb Hct MCV MCH MCHC Differential RDW Plt Count MPV Neutrophils % Lymphocytes % Monocytes % Eosinophils % Basophils % PT INR PTT (Actin FS) Sodium Potassium Chloride Carbon Dioxide Anion Gap BUN Creatinine Est GFR ( Amer) Est GFR (Non-Af Amer) BUN/Creatinine Ratio Glucose Calcium Total Bilirubin AST ALT Alkaline Phosphatase Troponin I 0.01 Total Protein Albumin Globulin Albumin/Globulin Ratio Triglycerides 130 Cholesterol 140 LDL Cholesterol Direct 94 HDL Cholesterol 33 - Assessment Assessment: Possible lower GI bleed with Hematochezia. Dehydration. Mild Leukocytosis. Mild Anemia. Dementia. Psychosis. History of Dyslipidemia. History of Insomnia. History of Osteoporosis. History of Htn. History of Gerd/PUD. History of Right femur fracture. History of Vitamin B-12 deficiency. History of Vitamin D Deficiency. - Plan Plan: Continuation of care. ID consult, Psych consult and GI consult. Monitor Labs, Hemoglobin levels. Continue present meds as directed. Monitor vitals, Continue BP meds as directed. Monitor Diet/Nutritional support. Psych management er Psych. Pain Management. Local skin care and Wound care. Physical therapy. Occupational therapy. Fall precaution, frequent nursing rounds, and as needed restraints to prevent fall. Safety precaution. Supportive care. Continue collaborating with consulting specialists, case management and nursing team. Will Monitor patient and continue current treatment plan as ordered.
--- NOTE | 2018-09-04 10:41 | Diagnostic Imaging Report ---
CT scan abdomen and pelvis without intravenous contrast HISTORY: Pain Total DLP equals 386 CTDI equals 9.2 Axial sections were obtained from the xiphoid process down to the pubic symphysis. The liver exhibits a homogeneous parenchyma. No focal lesions. The spleen appears normal. No focal amenities seen within the pancreas. No focal renal lesions. No hydronephrosis. Extensive diffuse atherosclerotic calcination noted throughout the abdominal aorta and major branches. The exam of the pelvis demonstrates a bulbous shaped uterus situated to the right side. Calcifications consistent with fibroid changes. Hyperdensity noted within the central uterus. If necessary, pelvic sonography would provide additional assessment. No other abnormal masses or abnormal fluid collections. No bowel dilatation. Diverticulosis is seen. Severe diffuse degenerative changes seen throughout the spine. IMPRESSION: 1. No acute abnormalities 2. Bulbous shaped uterus situates the right side of the pelvis associated fibroid changes. Density noted within the central uterine region of questionable significance. If indicated, pelvic sonography would provide further assessment. 3. Moderately distended stool-filled rectum 4. Surgical changes about the right hip 5. Diverticulosis
[2018-09-04] MEDS ORDERED: Magnesium Citrate 1.75 GM/300 mL Bottle PO ONE (14:12)
[2018-09-04] MEDS: POLYETHYLENE GLYCOL 3350 17 GM PACK PO SCH (16:52)
--- NOTE | 2018-09-04 18:23 | History & Physical ---
ADMIT DATE: 09/04/2018 AGE: 88. SEX: Female. PHYSICIAN: Dr. Perkins. ENVIRONMENTAL HEALTH AIDE: Dr. Rosales. TYPE OF THE REPORT: Psychiatric consult. REASON FOR THE CONSULT: Agitation. HISTORY OF PRESENT ILLNESS: The patient is an 88-year-old female who was admitted to the hospital under Dr. Perkins care because the staff found the blood on the diaper [facility]. The patient also has been agitated and restless and Dr. Perkins asked me to evaluate the patient. Chart reviewed and the patient interviewed and discussed the patient's condition with the staff and reviewed records and labs. The patient is agitated and restless. The patient also is confused and actively mumbles and talking to herself in the Occitan language with words were difficult to understand. The patient also was restless and unable to follow any of staff directions. PAST PSYCHIATRIC HISTORY: The patient has history of dementia. The patient also is taking Aricept 10 mg every day. PAST MEDICAL HISTORY: The patient has history of hypertension as well as dyslipidemia, peptic ulcer disease, and osteoporosis and anemia. SOCIAL HISTORY: The patient [facility] in a [facility]. No known alcohol or drug use. ALLERGIES: No known allergies. MENTAL STATUS EXAM: The patient appears her stated age. Restless. Anxious. Flat affect. She is actively responding and talking to herself. The patient did not answer question regarding hallucinations or delusions or suicide or homicide. The patient is alert, but seems to be disoriented to place, person, and situation. Impaired immediate, recent and remote memories. Poor insight and poor judgment. ASSESSMENT: PRIMARY DIAGNOSIS: Unspecified psychosis. SECONDARY DIAGNOSIS: Dementia, moderate to severe, with psychotic features. TREATMENT PLAN: We will monitor the patient's behavior and condition. We will start the patient on Risperdal 0.25 mg at bedtime and we will work on behavioral modification. If the patient continued to be agitated, Geropsych Unit might be an option for her treatment to stabilize her behavior problems. [facility]# [id number]
--- NOTE | 2018-09-04 22:58 | Consultation ---
DATE OF CONSULTATION: 09/04/2018 GASTROENTEROLOGY CONSULTATION REQUESTING PHYSICIAN: Kylah Perkins. REASON FOR CONSULTATION: Possible rectal bleeding. HISTORY OF PRESENT ILLNESS: An 88-year-old female with a history of agitation and confusion and possible dementia admitted from her nursing facility for 1 to 2 episodes of blood noted in her diapers. We were asked to see her for possible rectal bleeding. Her hemoglobin here is relatively stable. There have been no witnessed episodes of rectal bleeding here. There has been no reported nausea, vomiting or hematemesis either. It is unclear whether the patient has had a previous colonoscopy and if so when. PAST MEDICAL HISTORY: Notable for hypertension, dyslipidemia, peptic ulcer disease/GERD, dementia, osteoporosis, right femur fracture, mild anemia, vitamin D deficiency, cataract repair, insomnia and B12 deficiency. SOCIAL HISTORY: No recent tobacco, alcohol or drugs. FAMILY HISTORY: Noncontributory. REVIEW OF SYSTEMS: As per history of present illness, otherwise unobtainable. MEDICATIONS: Here are Tylenol, artificial tears, Dulcolax suppository p.r.n., vitamin D with calcium, vitamin D3, Colace, Aricept, hydrochlorothiazide, isosorbide, Claritin, Ativan, milk of magnesia, Risperdal, and Fleet enema p.r.n. ALLERGIES: No known drug allergies. REVIEW OF SYSTEMS: Negative. PHYSICAL EXAMINATION: VITAL SIGNS: Temperature of 97.0, blood pressure is 116/49, pulse of 47, respirations 18, O2 sats 94%. GENERAL: The patient is well-developed, well-nourished female who is in no acute distress, somewhat confused. CARDIOVASCULAR: Regular rate and rhythm. ABDOMEN: Soft, nontender, nondistended. EXTREMITIES: No clubbing, cyanosis or edema. RECTAL: Revealed normal sphincter tone. There is a mild amount of hard stool in the rectal vault that appears brown. There are no appreciable hemorrhoids or fissures or mass lesions palpated. RELEVANT LABORATORY DATA: Hemoglobin is 11.8, WBC is 11, platelet count is normal 245. INR is normal. Creatinine normal. Liver labs are normal. Albumin is 3.5. CT of the abdomen and pelvis done 09/03/2018 without contrast shows no acute abnormalities, bulbous shaped uterus with possible fibroid changes, moderately distended stool filled rectum and surgical changes of right hip. IMPRESSION: 1. Rectal bleeding. Rule out rectal ulcer, hemorrhoids, perhaps contributed by fecal impaction/constipation. Less likely is the possibility of occult colitis or neoplasm or polyp or angiodysplasia. 2. Mild anemia. 3. Mild leukocytosis. 4. Dementia. RECOMMENDATIONS: 1. Continue laxatives and stool softeners per mouth and per rectum. 2. Oral diet as tolerated. 3. Hydrocortisone suppository. 4. Cardiac diet as tolerated. 5. If bleeding persists then consider colonoscopy. If bleeding has stopped then colonoscopy can be done as an outpatient if not done recently. Thank you, Dr. Kylah Perkins for involving us in the care of your patient. If you have any further questions, please call us. [facility]# [id number]
[2018-09-05 05:33] LABS: % BASOPHILS 0.9 % (0.0-2.0); % EOSINOPHILS 2.5 % (0.0-5.0); % LYMPHOCYTES 23.6 % (20.0-50.0); % MONOCYTES 8.9 % (2.0-10.0); % NEUTROPHILS 64.1 % (40.0-80.0); BASOPHILE ABSOLUTE 0.1 Th/cumm (0-0.2); EOSINOPHILE ABSOLUTE 0.2 Th/cmm (0.1-0.4); HEMATOCRIT 34.5 % (41.0-60); HEMOGLOBIN 11.8 gm/dL (12-16); LYMPHOCYTE ABSOLUTE 1.7 Th/cmm (1.5-3.0); MEAN CELL VOLUME 88.2 fl (81-100); MONOCYTE ABSOLUTE 0.6 Th/cmm (0.3-1.0); NEUTROPHILE ABSOLUTE 4.6 Th/cmm (1.8-8.0); PLATELET COUNT 254 Th/cmm (150-400); RED BLOOD COUNT 3.91 Mil/cmm (3.80-5.20); RED CELL DISTRIBUTION WIDTH 13.4 % (11.5-20.0); WHITE BLOOD COUNT 7.2 Th/cmm (4.8-10.8)
[2018-09-05 05:45] LABS: INR 0.98 (0.5-1.4)
[2018-09-05 05:49] LABS: BUN - UREA NITROGEN 15 mg/dL (7-25); CALCIUM SERUM 9.5 mg/dL (8.6-10.3); CARBON DIOXIDE 26.1 mEq/L (21.0-31.0); CHLORIDE 107 mEq/L (98-107); CREATININE - SERUM 0.7 mg/dL (0.6-1.2); GLUCOSE 82 mg/dL (70-105); POTASSIUM SERUM 4.1 mEq/L (3.5-5.1); SODIUM SERUM 140 mEq/L (136-145)
[2018-09-05] MEDS: Sodium Chloride 0.45% 1,000 ML IV SCH ×2 (07:16→15:36)
--- NOTE | 2018-09-05 08:40 | GI Progress Note ---
Subjective - Review of Systems Service Date: 09/05/18 Subjective: No blood overnight, had 2 BMs GI OBJECTIVE - Results Result Diagrams: 09/05/18 05:20 09/05/18 05:20 Recent Labs: Laboratory Last Values WBC 7.2 Th/cmm (4.8-10.8) 09/05/18 05:20 RBC 3.91 Mil/cmm (3.80-5.20) 09/05/18 05:20 Hgb 11.8 gm/dL (12-16) L 09/05/18 05:20 Hct 34.5 % (41.0-60) L 09/05/18 05:20 MCV 88.2 fl (81-100) 09/05/18 05:20 MCH 30.0 pg (27.0-31.0) 09/05/18 05:20 MCHC Differential 34.0 pg (28.0-36.0) 09/05/18 05:20 RDW 13.4 % (11.5-20.0) 09/05/18 05:20 Plt Count 254 Th/cmm (150-400) 09/05/18 05:20 MPV 7.8 fl 09/05/18 05:20 Neutrophils % 64.1 % (40.0-80.0) 09/05/18 05:20 Lymphocytes % 23.6 % (20.0-50.0) 09/05/18 05:20 Monocytes % 8.9 % (2.0-10.0) 09/05/18 05:20 Eosinophils % 2.5 % (0.0-5.0) 09/05/18 05:20 Basophils % 0.9 % (0.0-2.0) 09/05/18 05:20 PT 10.2 SECONDS (9.5-11.5) 09/05/18 05:20 INR 0.98 (0.5-1.4) 09/05/18 05:20 PTT (Actin FS) 28.4 SECONDS (26.0-38.0) 09/05/18 05:20 Sodium 140 mEq/L (136-145) 09/05/18 05:20 Potassium 4.1 mEq/L (3.5-5.1) 09/05/18 05:20 Chloride 107 mEq/L (98-107) 09/05/18 05:20 Carbon Dioxide 26.1 mEq/L (21.0-31.0) 09/05/18 05:20 Anion Gap 11.0 (7.0-16.0) 09/05/18 05:20 BUN 15 mg/dL (7-25) 09/05/18 05:20 Creatinine 0.7 mg/dL (0.6-1.2) 09/05/18 05:20 Est GFR ( Amer) TNP 09/05/18 05:20 Est GFR (Non-Af Amer) TNP 09/05/18 05:20 BUN/Creatinine Ratio 21.4 09/05/18 05:20 Glucose 82 mg/dL (70-105) 09/05/18 05:20 Calcium 9.5 mg/dL (8.6-10.3) 09/05/18 05:20 Total Bilirubin 0.4 mg/dL (0.3-1.0) 09/03/18 22:20 AST 14 U/L (13-39) 09/03/18 22:20 ALT 8 U/L (7-52) 09/03/18 22:20 Alkaline Phosphatase 98 U/L (34-104) 09/03/18 22:20 Troponin I 0.01 ng/mL (0.01-0.05) 09/03/18 22:20 Total Protein 6.6 gm/dL (6.0-8.3) 09/03/18 22:20 Albumin 3.5 gm/dL (3.7-5.3) L 09/03/18 22:20 Globulin 3.1 gm/dL 09/03/18 22:20 Albumin/Globulin Ratio 1.1 (1.0-1.8) 09/03/18 22:20 Triglycerides 130 mg/dL (<150) 09/04/18 00:00 Cholesterol 140 mg/dL (<200) 09/04/18 00:00 LDL Cholesterol Direct 94 mg/dL (75-193) 09/04/18 00:00 HDL Cholesterol 33 mg/dL (23-92) 09/04/18 00:00 - Physical Exam Vitals and I&O: Vital Signs Temp 97.7 F 09/05/18 08:00 Pulse 70 09/05/18 04:00 Resp 18 07/04/19 08:00 BP 118/48 09/05/18 04:00 Pulse Ox 100 09/05/18 08:00 Intake & Output 09/04/18 09/05/18 09/05/18 18:59 06:59 18:59 Intake Total 1000 2101.25 Output Total 3 Balance 1000 2098.25 Weight (lbs) 49.895 kg Intake: Intake, IV Amount 1000 1981.25 Sodium Chloride 0.45% 1, 1000 1981.25 000 ml @ 125 mls/hr IV . Q8H TIFFANIE Rx#:[id number] Oral 120 Output: Urine 3 Other: # Voids 3 # Bowel Movements 2 Stool Characteristics Soft Weight Source Bedscale Active Medications: Current Medications Acetaminophen (Tylenol) 650 mg PO Q4H PRN PRN Reason: Pain (Mild) & Fever above 101F Stop: 11/03/18 03:34 Acetaminophen (Tylenol Extra Strength) 1,000 mg PO Q4HR PRN PRN Reason: Pain (Moderate) Stop: 11/03/18 04:04 Artificial Tears (Artificial Tears Ophth Soln) 1 drop EACH EYE BID PRN PRN Reason: Dry Eye Stop: 11/03/18 03:33 Bisacodyl (Dulcolax 10 Mg Supp) 10 mg RC DAILY PRN PRN Reason: IF MOM INEFFECTIVE Stop: 11/03/18 04:04 Calcium/Vitamin D (Oscal W/Vitamin D) 1 tab PO BID [facility] Stop: 11/03/18 08:59 Last Admin: 09/04/18 16:52 Dose: 1 tab Cholecalciferol (Vitamin D3) 5,000 iu PO QFRI [facility] Stop: 11/05/18 08:59 Docusate Sodium (Colace) 250 mg PO DAILY [facility] Stop: 11/03/18 08:59 Last Admin: 09/04/18 09:45 Dose: 250 mg Donepezil HCl (Aricept) 10 mg PO HS [facility] Stop: 11/03/18 20:59 Last Admin: 09/04/18 20:35 Dose: 10 mg Hydrochlorothiazide (Hctz) 12.5 mg PO DAILY [facility] Stop: 11/03/18 08:59 Last Admin: 09/04/18 09:44 Dose: 12.5 mg Hydrocortisone (Anusol-Hc) 25 mg RC BID [facility] Stop: 11/03/18 16:59 Last Admin: 09/04/18 16:54 Dose: Not Given Sodium Chloride (Nacl 0.45%) 1,000 mls @ 125 mls/hr IV .Q8H TIFFANIE Stop: 11/03/18 01:14 Last Admin: 09/05/18 07:16 Dose: 125 mls/hr Isosorbide Dinitrate (Isordil) 5 mg PO TID TIFFANIE Stop: 11/03/18 08:59 Last Admin: 09/04/18 20:35 Dose: 5 mg Loratadine (Claritin) 10 mg PO DAILY PRN PRN Reason: Allergy Symptoms Stop: 11/03/18 03:33 Lorazepam (Ativan) 1 mg IVP Q4HR PRN; Protocol PRN Reason: Agitation Stop: 11/03/18 01:33 Last Admin: 09/04/18 23:28 Dose: 1 mg Magnesium Hydroxide (Milk Of Magnesia) 30 ml PO HS PRN PRN Reason: Constipation Stop: 11/03/18 03:38 Polyethylene Glycol (Miralax) 17 gm PO DAILY TIFFANIE Stop: 11/03/18 14:14 Last Admin: 09/04/18 16:52 Dose: 17 gm Risperidone (Risperdal) 0.25 mg PO HS TIFFANIE; Protocol Stop: 11/03/18 20:59 Sodium Phosphate (Fleet Enema) 135 ml RC Q48H PRN PRN Reason: IF DULCOLAX INEFFECTIVE Stop: 11/03/18 04:05 General: Alert HEENT: Atraumatic Neck: Supple Cardiovascular: Regular rate Abdomen: Bowel sounds, Soft, no Tender, no Hepatomegaly, no Distended, no Rebound, no Mass Extremities: no Clubbing Psych/Mental Status: Mental status NL Assessment/Plan - Assessment Assessment: # hematochezia # Anemia Etiology may be from fecal impaction, hemorrhoids, diverticulosis, or less likely malignancy. She has been disempacted, and her hgb now stable without ongoing bleeding. Plan: - conservative approach with stool softeners and laxatives - colonoscopy only if bleed intensifies and there is a need for hemostasis given her increased endoscopic risk profile - trend hgb, transfuse to keep > 7 - oral diet as tolerated
[2018-09-05] MEDS: POLYETHYLENE GLYCOL 3350 17 GM PACK PO SCH (09:28)
[2018-09-05] MEDS: Calcium Carb/Vit D 500 mg/200 U Tab PO SCH ×3 (09:28→17:03)
[2018-09-05] MEDS: Multivitamin w/ Minerals Tab PO SCH ×2 (09:28→09:46)
--- NOTE | 2018-09-05 21:25 | Progress Notes ---
DATE: 09/05/[address] Rosales. Case was discussed with staff of the patient, reviewed records. This is an 88-year-old female who was admitted to the medical floor on 09/04/2018 because apparently the staff found blood [facility] the diaper [facility]. She has been agitated, restless and Dr. Perkins asked Dr. Rosales to see her. The patient is confused, actively mumbling and talking to herself in Slovak language with words were difficult to understand, restless, unable to make safe plan for self-care, demented, confused, continues to be unable to participate in meaningful conversation or plan for self-care. No side effects from the medication. She is on Aricept 10 mg at bedtime and Risperdal initiated yesterday 0.25 mg at bedtime with no side effects, no sedation, no nausea and no extrapyramidal symptoms. The patient needs follow up with psychiatrist upon discharge. Thank you very much for allowing me to participate in the care of this most interesting lady. [facility]# [id number]
[2018-09-06 06:11] LABS: % BASOPHILS 0.3 % (0.0-2.0); % EOSINOPHILS 1.3 % (0.0-5.0); % LYMPHOCYTES 20.4 % (20.0-50.0); % MONOCYTES 9.8 % (2.0-10.0); % NEUTROPHILS 68.2 % (40.0-80.0); EOSINOPHILE ABSOLUTE 0.1 Th/cmm (0.1-0.4); HEMATOCRIT 37.8 % (41.0-60); HEMOGLOBIN 12.6 gm/dL (12-16); LYMPHOCYTE ABSOLUTE 1.4 Th/cmm (1.5-3.0); MEAN CELL VOLUME 88.5 fl (81-100); MEAN CORPUSCULAR HEMOGLOBIN 29.6 pg (27.0-31.0); MEAN CORPUSCULAR HGB CONC 33.5 pg (28.0-36.0); MONOCYTE ABSOLUTE 0.7 Th/cmm (0.3-1.0); NEUTROPHILE ABSOLUTE 4.7 Th/cmm (1.8-8.0); PLATELET COUNT 284 Th/cmm (150-400); RED BLOOD COUNT 4.27 Mil/cmm (3.80-5.20); RED CELL DISTRIBUTION WIDTH 13.4 % (11.5-20.0); WHITE BLOOD COUNT 6.9 Th/cmm (4.8-10.8)
[2018-09-06 06:28] LABS: ANION GAP 11.3 (7.0-16.0); BUN - UREA NITROGEN 13 mg/dL (7-25); CALCIUM SERUM 9.8 mg/dL (8.6-10.3); CARBON DIOXIDE 24.2 mEq/L (21.0-31.0); CHLORIDE 101 mEq/L (98-107); CREATININE - SERUM 0.7 mg/dL (0.6-1.2); GLUCOSE 85 mg/dL (70-105); POTASSIUM SERUM 3.5 mEq/L (3.5-5.1); SODIUM SERUM 133 mEq/L (136-145)
--- NOTE | 2018-09-06 07:27 | Internal Medicine Prog Note ---
Internal Medicine Subjective - Subjective Service Date: 09/06/18 Patient seen and examined:: with staff Patient is:: awake, confused Per staff patient has:: tolerating meds Internal Medicine Objective - Results Result Diagrams: 09/06/18 05:55 09/06/18 05:55 Recent Labs: Laboratory Last Values WBC 6.9 Th/cmm (4.8-10.8) 09/06/18 05:55 RBC 4.27 Mil/cmm (3.80-5.20) 09/06/18 05:55 Hgb 12.6 gm/dL (12-16) 09/06/18 05:55 Hct 37.8 % (41.0-60) L 09/06/18 05:55 MCV 88.5 fl (81-100) 09/06/18 05:55 MCH 29.6 pg (27.0-31.0) 09/06/18 05:55 MCHC Differential 33.5 pg (28.0-36.0) 09/06/18 05:55 RDW 13.4 % (11.5-20.0) 09/06/18 05:55 Plt Count 284 Th/cmm (150-400) 09/06/18 05:55 MPV 7.8 fl 09/06/18 05:55 Neutrophils % 68.2 % (40.0-80.0) 09/06/18 05:55 Lymphocytes % 20.4 % (20.0-50.0) 09/06/18 05:55 Monocytes % 9.8 % (2.0-10.0) 09/06/18 05:55 Eosinophils % 1.3 % (0.0-5.0) 09/06/18 05:55 Basophils % 0.3 % (0.0-2.0) 09/06/18 05:55 PT 10.2 SECONDS (9.5-11.5) 09/05/18 05:20 INR 0.98 (0.5-1.4) 09/05/18 05:20 PTT (Actin FS) 28.4 SECONDS (26.0-38.0) 09/05/18 05:20 Sodium 133 mEq/L (136-145) L 09/06/18 05:55 Potassium 3.5 mEq/L (3.5-5.1) 09/06/18 05:55 Chloride 101 mEq/L (98-107) 09/06/18 05:55 Carbon Dioxide 24.2 mEq/L (21.0-31.0) 09/06/18 05:55 Anion Gap 11.3 (7.0-16.0) 09/06/18 05:55 BUN 13 mg/dL (7-25) 09/06/18 05:55 Creatinine 0.7 mg/dL (0.6-1.2) 09/06/18 05:55 Est GFR ( Amer) TNP 09/06/18 05:55 Est GFR (Non-Af Amer) TNP 09/06/18 05:55 BUN/Creatinine Ratio 18.6 09/06/18 05:55 Glucose 85 mg/dL (70-105) 09/06/18 05:55 Calcium 9.8 mg/dL (8.6-10.3) 09/06/18 05:55 Total Bilirubin 0.4 mg/dL (0.3-1.0) 09/03/18 22:20 AST 14 U/L (13-39) 09/03/18 22:20 ALT 8 U/L (7-52) 09/03/18 22:20 Alkaline Phosphatase 98 U/L (34-104) 09/03/18 22:20 Troponin I 0.01 ng/mL (0.01-0.05) 09/03/18 22:20 Total Protein 6.6 gm/dL (6.0-8.3) 09/03/18 22:20 Albumin 3.5 gm/dL (3.7-5.3) L 09/03/18 22:20 Globulin 3.1 gm/dL 09/03/18 22:20 Albumin/Globulin Ratio 1.1 (1.0-1.8) 09/03/18 22:20 Triglycerides 130 mg/dL (<150) 09/04/18 00:00 Cholesterol 140 mg/dL (<200) 09/04/18 00:00 LDL Cholesterol Direct 94 mg/dL (75-193) 09/04/18 00:00 HDL Cholesterol 33 mg/dL (23-92) 09/04/18 00:00 TSH 5.31 uIU/ml (0.34-5.60) 09/06/18 05:55 - Physical Exam Vitals and I&O: Vital Signs Temp 97 F 09/06/18 04:00 Pulse 62 09/06/18 04:00 Resp 19 09/06/18 04:00 BP 150/59 09/06/18 04:00 Pulse Ox 96 09/06/18 04:00 Intake & Output 09/05/18 09/06/18 09/06/18 18:59 06:59 18:59 Intake Total 1000 200 Balance 1000 200 Weight (lbs) 110 lb Intake: Intake, IV Amount 1000 Sodium Chloride 0.45% 1, 1000 000 ml @ 125 mls/hr IV . Q8H [facility] Rx#:[id number] Oral 200 Other: # Voids 3 # Bowel Movements 0 Weight Source Bedscale Active Medications: Current Medications Acetaminophen (Tylenol) 650 mg PO Q4H PRN PRN Reason: Pain (Mild) & Fever above 101F Stop: 11/03/18 03:34 Acetaminophen (Tylenol Extra Strength) 1,000 mg PO Q4HR PRN PRN Reason: Pain (Moderate) Stop: 11/03/18 04:04 Artificial Tears (Artificial Tears Ophth Soln) 1 drop EACH EYE BID PRN PRN Reason: Dry Eye Stop: 11/03/18 03:33 Bisacodyl (Dulcolax 10 Mg Supp) 10 mg RC DAILY PRN PRN Reason: IF MOM INEFFECTIVE Stop: 11/03/18 04:04 Calcium/Vitamin D (Oscal W/Vitamin D) 1 tab PO BID [facility] Stop: 11/03/18 08:59 Last Admin: 09/05/18 17:03 Dose: 1 tab Cholecalciferol (Vitamin D3) 5,000 iu PO QFRI [facility] Stop: 11/05/18 08:59 Docusate Sodium (Colace) 250 mg PO DAILY [facility] Stop: 11/03/18 08:59 Last Admin: 09/05/18 09:46 Dose: Not Given Donepezil HCl (Aricept) 10 mg PO HS [facility] Stop: 11/03/18 20:59 Last Admin: 09/05/18 20:31 Dose: 10 mg Hydrochlorothiazide (Hctz) 12.5 mg PO DAILY [facility] Stop: 11/03/18 08:59 Last Admin: 09/05/18 09:30 Dose: Not Given Hydrocortisone (Anusol-Hc) 25 mg RC BID [facility] Stop: 11/03/18 16:59 Last Admin: 09/05/18 17:03 Dose: 25 mg Sodium Chloride (Nacl 0.45%) 1,000 mls @ 125 mls/hr IV .Q8H [facility] Stop: 11/03/18 01:14 Last Admin: 09/05/18 15:36 Dose: 125 mls/hr Isosorbide Dinitrate (Isordil) 5 mg PO TID [facility] Stop: 11/03/18 08:59 Last Admin: 09/05/18 20:30 Dose: 5 mg Loratadine (Claritin) 10 mg PO DAILY PRN PRN Reason: Allergy Symptoms Stop: 11/03/18 03:33 Lorazepam (Ativan) 1 mg IVP Q4HR PRN; Protocol PRN Reason: Agitation Stop: 11/03/18 01:33 Last Admin: 09/05/18 22:36 Dose: 1 mg Magnesium Hydroxide (Milk Of Magnesia) 30 ml PO HS PRN PRN Reason: Constipation Stop: 11/03/18 03:38 Polyethylene Glycol (Miralax) 17 gm PO DAILY [facility] Stop: 11/03/18 14:14 Last Admin: 09/05/18 09:28 Dose: 17 gm Risperidone (Risperdal) 0.25 mg PO HS [facility]; Protocol Stop: 11/03/18 20:59 Last Admin: 09/05/18 20:31 Dose: 0.25 mg Sodium Phosphate (Fleet Enema) 135 ml RC Q48H PRN PRN Reason: IF DULCOLAX INEFFECTIVE Stop: 11/03/18 04:05 General: weak, NAD HEENT: NC/AT, PERRLA Neck: Supple Lungs: CTAB Abdomen: soft, non-tender, non-distended Extremities: excoriation Neurological: unable to follow command Internal Medicine Assmt/Plan - Assessment Assessment: Possible lower GI bleed with Hematochezia. Dehydration. Mild Leukocytosis. Mild Anemia. Dementia. Psychosis. History of Dyslipidemia. History of Insomnia. History of Osteoporosis. History of Htn. History of Gerd/PUD. History of Right femur fracture. History of Vitamin B-12 deficiency. History of Vitamin D Deficiency. - Plan Plan: Continuation of care. ID consult, Psych consult and GI consult. Monitor Labs, Hemoglobin levels. Continue present meds as directed. Monitor vitals, Continue BP meds as directed. Monitor Diet/Nutritional support. Psych management er Psych. Pain Management. Local skin care and Wound care. Physical therapy. Occupational therapy. Fall precaution, frequent nursing rounds, and as needed restraints to prevent fall. Safety precaution. Supportive care. Continue collaborating with consulting specialists, case management and nursing team. Will Monitor patient and continue current treatment plan as ordered.
[2018-09-06] MEDS: Calcium Carb/Vit D 500 mg/200 U Tab PO SCH ×2 (08:12→16:42)
[2018-09-06] MEDS: Multivitamin w/ Minerals Tab PO SCH (08:13)
[2018-09-06] MEDS: POLYETHYLENE GLYCOL 3350 17 GM PACK PO SCH (08:14)
[2018-09-06] MEDS ORDERED: Magnesium Citrate 1.75 GM/300 mL Bottle PO ONE (10:52)
--- NOTE | 2018-09-06 10:54 | GI Progress Note ---
Subjective - Review of Systems Service Date: 09/06/18 Subjective: Had rectal bleeding overnight. GI OBJECTIVE - Results Result Diagrams: 09/06/18 05:55 09/06/18 05:55 Recent Labs: Laboratory Last Values WBC 6.9 Th/cmm (4.8-10.8) 09/06/18 05:55 RBC 4.27 Mil/cmm (3.80-5.20) 09/06/18 05:55 Hgb 12.6 gm/dL (12-16) 09/06/18 05:55 Hct 37.8 % (41.0-60) L 09/06/18 05:55 MCV 88.5 fl (81-100) 09/06/18 05:55 MCH 29.6 pg (27.0-31.0) 09/06/18 05:55 MCHC Differential 33.5 pg (28.0-36.0) 09/06/18 05:55 RDW 13.4 % (11.5-20.0) 09/06/18 05:55 Plt Count 284 Th/cmm (150-400) 09/06/18 05:55 MPV 7.8 fl 09/06/18 05:55 Neutrophils % 68.2 % (40.0-80.0) 09/06/18 05:55 Lymphocytes % 20.4 % (20.0-50.0) 09/06/18 05:55 Monocytes % 9.8 % (2.0-10.0) 09/06/18 05:55 Eosinophils % 1.3 % (0.0-5.0) 09/06/18 05:55 Basophils % 0.3 % (0.0-2.0) 09/06/18 05:55 PT 10.2 SECONDS (9.5-11.5) 09/05/18 05:20 INR 0.98 (0.5-1.4) 09/05/18 05:20 PTT (Actin FS) 28.4 SECONDS (26.0-38.0) 09/05/18 05:20 Sodium 133 mEq/L (136-145) L 09/06/18 05:55 Potassium 3.5 mEq/L (3.5-5.1) 09/06/18 05:55 Chloride 101 mEq/L (98-107) 09/06/18 05:55 Carbon Dioxide 24.2 mEq/L (21.0-31.0) 09/06/18 05:55 Anion Gap 11.3 (7.0-16.0) 09/06/18 05:55 BUN 13 mg/dL (7-25) 09/06/18 05:55 Creatinine 0.7 mg/dL (0.6-1.2) 09/06/18 05:55 Est GFR ( Amer) TNP 09/06/18 05:55 Est GFR (Non-Af Amer) TNP 09/06/18 05:55 BUN/Creatinine Ratio 18.6 09/06/18 05:55 Glucose 85 mg/dL (70-105) 09/06/18 05:55 Calcium 9.8 mg/dL (8.6-10.3) 09/06/18 05:55 Total Bilirubin 0.4 mg/dL (0.3-1.0) 09/03/18 22:20 AST 14 U/L (13-39) 09/03/18 22:20 ALT 8 U/L (7-52) 09/03/18 22:20 Alkaline Phosphatase 98 U/L (34-104) 09/03/18 22:20 Troponin I 0.01 ng/mL (0.01-0.05) 09/03/18 22:20 Total Protein 6.6 gm/dL (6.0-8.3) 09/03/18 22:20 Albumin 3.5 gm/dL (3.7-5.3) L 09/03/18 22:20 Globulin 3.1 gm/dL 09/03/18 22:20 Albumin/Globulin Ratio 1.1 (1.0-1.8) 09/03/18 22:20 Triglycerides 130 mg/dL (<150) 09/04/18 00:00 Cholesterol 140 mg/dL (<200) 09/04/18 00:00 LDL Cholesterol Direct 94 mg/dL (75-193) 09/04/18 00:00 HDL Cholesterol 33 mg/dL (23-92) 09/04/18 00:00 TSH 5.31 uIU/ml (0.34-5.60) 09/06/18 05:55 Blood Type A POSITIVE 09/06/18 06:16 Antibody Screen NEGATIVE 09/06/18 06:16 - Physical Exam Vitals and I&O: Vital Signs Temp 96.6 F 09/06/18 08:00 Pulse 67 09/06/18 08:12 Resp 20 09/06/18 08:00 BP 162/66 09/06/18 08:12 Pulse Ox 97 09/06/18 08:00 Intake & Output 09/05/18 09/06/18 09/06/18 18:59 06:59 18:59 Intake Total 1000 200 Balance 1000 200 Weight (lbs) 49.895 kg Intake: Intake, IV Amount 1000 Sodium Chloride 0.45% 1, 1000 000 ml @ 125 mls/hr IV . Q8H [facility] Rx#:[id number] Oral 200 Other: # Voids 3 # Bowel Movements 0 Weight Source Bedscale Active Medications: Current Medications Acetaminophen (Tylenol) 650 mg PO Q4H PRN PRN Reason: Pain (Mild) & Fever above 101F Stop: 11/03/18 03:34 Acetaminophen (Tylenol Extra Strength) 1,000 mg PO Q4HR PRN PRN Reason: Pain (Moderate) Stop: 11/03/18 04:04 Artificial Tears (Artificial Tears Ophth Soln) 1 drop EACH EYE BID PRN PRN Reason: Dry Eye Stop: 11/03/18 03:33 Bisacodyl (Dulcolax 10 Mg Supp) 10 mg RC DAILY PRN PRN Reason: IF MOM INEFFECTIVE Stop: 11/03/18 04:04 Bisacodyl (Dulcolax 5 Mg Ec Tab) 10 mg PO X1 ONE Stop: 09/06/18 16:01 Calcium/Vitamin D (Oscal W/Vitamin D) 1 tab PO BID [facility] Stop: 11/03/18 08:59 Last Admin: 09/06/18 08:12 Dose: 1 tab Cholecalciferol (Vitamin D3) 5,000 iu PO QFRI [facility] Stop: 11/05/18 08:59 Last Admin: 09/06/18 08:14 Dose: 5,000 iu Docusate Sodium (Colace) 250 mg PO DAILY [facility] Stop: 11/03/18 08:59 Last Admin: 09/06/18 08:12 Dose: 250 mg Donepezil HCl (Aricept) 10 mg PO HS [facility] Stop: 11/03/18 20:59 Last Admin: 09/05/18 20:31 Dose: 10 mg Hydrochlorothiazide (Hctz) 12.5 mg PO DAILY [facility] Stop: 11/03/18 08:59 Last Admin: 09/06/18 08:12 Dose: 12.5 mg Hydrocortisone (Anusol-Hc) 25 mg RC BID [facility] Stop: 11/03/18 16:59 Last Admin: 09/05/18 17:03 Dose: 25 mg Sodium Chloride (Nacl 0.45%) 1,000 mls @ 125 mls/hr IV .Q8H [facility] Stop: 11/03/18 01:14 Last Admin: 09/05/18 15:36 Dose: 125 mls/hr Isosorbide Dinitrate (Isordil) 5 mg PO TID [facility] Stop: 11/03/18 08:59 Last Admin: 09/06/18 08:12 Dose: 5 mg Loratadine (Claritin) 10 mg PO DAILY PRN PRN Reason: Allergy Symptoms Stop: 11/03/18 03:33 Lorazepam (Ativan) 1 mg IVP Q4HR PRN; Protocol PRN Reason: Agitation Stop: 11/03/18 01:33 Last Admin: 09/05/18 22:36 Dose: 1 mg Magnesium Citrate (Citroma) 17.5 gm PO X1 ONE Stop: 09/06/18 10:53 Magnesium Hydroxide (Milk Of Magnesia) 30 ml PO HS PRN PRN Reason: Constipation Stop: 11/03/18 03:38 Polyethylene Glycol (Miralax) 17 gm PO DAILY [facility] Stop: 11/03/18 14:14 Last Admin: 09/06/18 08:14 Dose: 17 gm Risperidone (Risperdal) 0.25 mg PO HS [facility]; Protocol Stop: 11/03/18 20:59 Last Admin: 09/05/18 20:31 Dose: 0.25 mg Sodium Phosphate (Fleet Enema) 135 ml RC Q48H PRN PRN Reason: IF DULCOLAX INEFFECTIVE Stop: 11/03/18 04:05 General: No acute distress Cardiovascular: Regular rate Abdomen: Bowel sounds, Soft, no Tender Assessment/Plan - Assessment Assessment: # hematochezia, still ongoing intermittently. # Anemia Etiology may be from fecal impaction, hemorrhoids, diverticulosis, or less likely malignancy. She has been disempacted, and her hgb now stable without ongoing bleeding. Plan: - conservative approach with stool softeners and laxatives - colonoscopy on 09/09 - will give bowel prep over 48 hours. - trend hgb, transfuse to keep > 7 - clear liquid diet as tolerated
--- NOTE | 2018-09-06 17:14 | Progress Notes ---
DATE: 09/06/2018 SUBJECTIVE: Chart was reviewed and the patient interviewed. Also discussed the patient's condition with the staff and reviewed records and labs. The patient is still confused and forgetful. The patient also still has difficulty answering my questions because of her forgetfulness and because of her paranoia. On the other hand, the patient seems to be calm and cooperative. No side effects of Risperdal or Aricept. ASSESSMENT: The patient currently is calm. TREATMENT PLAN: Continue Risperdal and Aricept at the same dose. Also, continue to monitor behavior and followup. JOB# [id number]
[2018-09-06] MEDS: Sodium Chloride 0.45% 1,000 ML IV SCH (23:29)
[2018-09-07 06:15] LABS: % BASOPHILS 0.7 % (0.0-2.0); % EOSINOPHILS 2.1 % (0.0-5.0); % LYMPHOCYTES 23.9 % (20.0-50.0); % MONOCYTES 10.7 % (2.0-10.0); % NEUTROPHILS 62.6 % (40.0-80.0); EOSINOPHILE ABSOLUTE 0.1 Th/cmm (0.1-0.4); HEMOGLOBIN 12.1 gm/dL (12-16); LYMPHOCYTE ABSOLUTE 1.6 Th/cmm (1.5-3.0); MEAN CORPUSCULAR HEMOGLOBIN 30.3 pg (27.0-31.0); MEAN CORPUSCULAR HGB CONC 33.6 pg (28.0-36.0); MONOCYTE ABSOLUTE 0.7 Th/cmm (0.3-1.0); NEUTROPHILE ABSOLUTE 4.2 Th/cmm (1.8-8.0); PLATELET COUNT 271 Th/cmm (150-400); RED BLOOD COUNT 3.99 Mil/cmm (3.80-5.20); RED CELL DISTRIBUTION WIDTH 13.3 % (11.5-20.0); WHITE BLOOD COUNT 6.6 Th/cmm (4.8-10.8)
[2018-09-07 06:17] LABS: INR 0.96 (0.5-1.4)
[2018-09-07 07:09] LABS: ANION GAP 11.7 (7.0-16.0); BUN - UREA NITROGEN 12 mg/dL (7-25); CALCIUM SERUM 9.7 mg/dL (8.6-10.3); CARBON DIOXIDE 24.8 mEq/L (21.0-31.0); CHLORIDE 106 mEq/L (98-107); CREATININE - SERUM 0.8 mg/dL (0.6-1.2); GLUCOSE 78 mg/dL (70-105); POTASSIUM SERUM 3.5 mEq/L (3.5-5.1); SODIUM SERUM 139 mEq/L (136-145)
[2018-09-07] MEDS: Sodium Chloride 0.45% 1,000 ML IV SCH (08:27)
[2018-09-07] MEDS: POLYETHYLENE GLYCOL 3350 17 GM PACK PO SCH (08:27)
[2018-09-07] MEDS: Multivitamin w/ Minerals Tab PO SCH (08:31)
[2018-09-07] MEDS: Calcium Carb/Vit D 500 mg/200 U Tab PO SCH ×2 (08:32→16:11)
[2018-09-07] MEDS ORDERED: Magnesium Citrate 1.75 GM/300 mL Bottle PO ONE (08:42)
--- NOTE | 2018-09-07 08:45 | GI Progress Note ---
Subjective - Review of Systems Service Date: 09/07/18 Subjective: No bleeding overnight. More sleepy today. GI OBJECTIVE - Results Result Diagrams: 09/07/18 05:55 09/07/18 05:55 Recent Labs: Laboratory Last Values WBC 6.6 Th/cmm (4.8-10.8) 09/07/18 05:55 RBC 3.99 Mil/cmm (3.80-5.20) 09/07/18 05:55 Hgb 12.1 gm/dL (12-16) 09/07/18 05:55 Hct 36.0 % (41.0-60) L 09/07/18 05:55 MCV 90.0 fl (81-100) 09/07/18 05:55 MCH 30.3 pg (27.0-31.0) 09/07/18 05:55 MCHC Differential 33.6 pg (28.0-36.0) 09/07/18 05:55 RDW 13.3 % (11.5-20.0) 09/07/18 05:55 Plt Count 271 Th/cmm (150-400) 09/07/18 05:55 MPV 7.6 fl 09/07/18 05:55 Neutrophils % 62.6 % (40.0-80.0) 09/07/18 05:55 Lymphocytes % 23.9 % (20.0-50.0) 09/07/18 05:55 Monocytes % 10.7 % (2.0-10.0) H 09/07/18 05:55 Eosinophils % 2.1 % (0.0-5.0) 09/07/18 05:55 Basophils % 0.7 % (0.0-2.0) 09/07/18 05:55 PT 10.0 SECONDS (9.5-11.5) 09/07/18 05:55 INR 0.96 (0.5-1.4) 09/07/18 05:55 PTT (Actin FS) 28.4 SECONDS (26.0-38.0) 09/05/18 05:20 Sodium 139 mEq/L (136-145) 09/07/18 05:55 Potassium 3.5 mEq/L (3.5-5.1) 09/07/18 05:55 Chloride 106 mEq/L (98-107) 09/07/18 05:55 Carbon Dioxide 24.8 mEq/L (21.0-31.0) 09/07/18 05:55 Anion Gap 11.7 (7.0-16.0) 09/07/18 05:55 BUN 12 mg/dL (7-25) 09/07/18 05:55 Creatinine 0.8 mg/dL (0.6-1.2) 09/07/18 05:55 Est GFR ( Amer) TNP 09/07/18 05:55 Est GFR (Non-Af Amer) TNP 09/07/18 05:55 BUN/Creatinine Ratio 15.0 09/07/18 05:55 Glucose 78 mg/dL (70-105) 09/07/18 05:55 Calcium 9.7 mg/dL (8.6-10.3) 09/07/18 05:55 Total Bilirubin 0.4 mg/dL (0.3-1.0) 09/03/18 22:20 AST 14 U/L (13-39) 09/03/18 22:20 ALT 8 U/L (7-52) 09/03/18 22:20 Alkaline Phosphatase 98 U/L (34-104) 09/03/18 22:20 Troponin I 0.01 ng/mL (0.01-0.05) 09/03/18 22:20 Total Protein 6.6 gm/dL (6.0-8.3) 09/03/18 22:20 Albumin 3.5 gm/dL (3.7-5.3) L 09/03/18 22:20 Globulin 3.1 gm/dL 09/03/18 22:20 Albumin/Globulin Ratio 1.1 (1.0-1.8) 09/03/18 22:20 Triglycerides 130 mg/dL (<150) 09/04/18 00:00 Cholesterol 140 mg/dL (<200) 09/04/18 00:00 LDL Cholesterol Direct 94 mg/dL (75-193) 09/04/18 00:00 HDL Cholesterol 33 mg/dL (23-92) 09/04/18 00:00 TSH 5.31 uIU/ml (0.34-5.60) 09/06/18 05:55 Blood Type A POSITIVE 09/06/18 06:16 Antibody Screen NEGATIVE 09/06/18 06:16 - Physical Exam Vitals and I&O: Vital Signs Temp 97 F 09/07/18 04:00 Pulse 48 09/07/18 08:32 Resp 20 09/07/18 04:00 BP 120/44 09/07/18 08:33 Pulse Ox 100 09/07/18 04:00 Intake & Output 09/06/18 09/07/18 09/07/18 18:59 06:59 18:59 Intake Total 199 291 7129 Output Total 1 Balance 363 962 6770 Weight (lbs) 49.895 kg 46.72 kg Intake: Intake, IV Amount 1000 Sodium Chloride 0.45% 1, 1000 000 ml @ 125 mls/hr IV . Q8H [facility] Rx#:[id number] Oral 800 200 Output: Stool 1 Other: # Voids 3 2 # Bowel Movements 1 1 Stool Characteristics Soft Brown Weight Source Bedscale Bedscale Active Medications: Current Medications Acetaminophen (Tylenol) 650 mg PO Q4H PRN PRN Reason: Pain (Mild) & Fever above 101F Stop: 11/03/18 03:34 Acetaminophen (Tylenol Extra Strength) 1,000 mg PO Q4HR PRN PRN Reason: Pain (Moderate) Stop: 11/03/18 04:04 Artificial Tears (Artificial Tears Ophth Soln) 1 drop EACH EYE BID PRN PRN Reason: Dry Eye Stop: 11/03/18 03:33 Bisacodyl (Dulcolax 10 Mg Supp) 10 mg RC DAILY PRN PRN Reason: IF MOM INEFFECTIVE Stop: 11/03/18 04:04 Calcium/Vitamin D (Oscal W/Vitamin D) 1 tab PO BID [facility] Stop: 11/03/18 08:59 Last Admin: 09/07/18 08:32 Dose: 1 tab Cholecalciferol (Vitamin D3) 5,000 iu PO QFRI [facility] Stop: 11/05/18 08:59 Last Admin: 09/06/18 08:14 Dose: 5,000 iu Docusate Sodium (Colace) 250 mg PO DAILY [facility] Stop: 11/03/18 08:59 Last Admin: 09/07/18 08:32 Dose: 250 mg Donepezil HCl (Aricept) 10 mg PO HS [facility] Stop: 11/03/18 20:59 Last Admin: 09/06/18 20:17 Dose: 10 mg Hydrochlorothiazide (Hctz) 12.5 mg PO DAILY [facility] Stop: 11/03/18 08:59 Last Admin: 09/07/18 08:33 Dose: 12.5 mg Hydrocortisone (Anusol-Hc) 25 mg RC BID [facility] Stop: 11/03/18 16:59 Last Admin: 09/07/18 08:32 Dose: 25 mg Sodium Chloride (Nacl 0.45%) 1,000 mls @ 125 mls/hr IV .Q8H [facility] Stop: 11/03/18 01:14 Last Admin: 09/07/18 08:27 Dose: 125 mls/hr Isosorbide Dinitrate (Isordil) 5 mg PO TID [facility] Stop: 11/03/18 08:59 Last Admin: 09/07/18 08:32 Dose: Not Given Loratadine (Claritin) 10 mg PO DAILY PRN PRN Reason: Allergy Symptoms Stop: 11/03/18 03:33 Lorazepam (Ativan) 1 mg IVP Q4HR PRN; Protocol PRN Reason: Agitation Stop: 11/03/18 01:33 Last Admin: 09/06/18 23:22 Dose: 1 mg Magnesium Hydroxide (Milk Of Magnesia) 30 ml PO HS PRN PRN Reason: Constipation Stop: 11/03/18 03:38 Polyethylene Glycol (Miralax) 17 gm PO DAILY [facility] Stop: 11/03/18 14:14 Last Admin: 09/07/18 08:27 Dose: 17 gm Risperidone (Risperdal) 0.25 mg PO HS [facility]; Protocol Stop: 11/03/18 20:59 Last Admin: 09/06/18 23:30 Dose: 0.25 mg Sodium Phosphate (Fleet Enema) 135 ml RC Q48H PRN PRN Reason: IF DULCOLAX INEFFECTIVE Stop: 11/03/18 04:05 General: No acute distress Lungs: Clear to auscultation Abdomen: Bowel sounds, Soft, no Tender Assessment/Plan - Assessment Assessment: # hematochezia, still ongoing intermittently. # Anemia Etiology may be from fecal impaction, hemorrhoids, diverticulosis, or less likely malignancy. She has been disempacted, and her hgb now stable without ongoing bleeding. Plan: - continue stool softeners and laxatives in preparation for colonoscopy 09/09. - may need NGT insertion if unable to tolerate bowel prep orally. - trend hgb, transfuse to keep > 7 - clear liquid diet as tolerated
[2018-09-07] MEDS: Lactulose 10 Gm/15 mL 30mL UDC PO SCH ×4 (09:11→21:42)
--- NOTE | 2018-09-07 17:00 | Progress Notes ---
DATE: 09/07/2018 SUBJECTIVE: The patient was seen in room. The patient is awake, poor historian due to medical condition. Otherwise, the patient appears to be in no acute distress. The patient still has episodes of rectal bleed. Otherwise, the patient is in no acute distress. OBJECTIVE: VITAL SIGNS: Temperature 97, heart rate of 65, blood pressure 100/57, respirations 20, 100% on room air. HEENT: Head is atraumatic and normocephalic. Eyes: Bilateral conjunctivae are clear. Bilateral pupils are equally round and reactive. NECK: Supple. No JVD. CARDIOVASCULAR: S1 and S2, without murmur. PULMONARY: Clear to auscultation. GASTROINTESTINAL: Soft and nontender without guarding. Positive bowel sounds, positive, hematochezia. MUSCULOSKELETAL: No clubbing. No cyanosis noted. ASSESSMENT: 1. Hematochezia. 2. Anemia. 3. Dehydration. 4. Dementia. 5. Psychosis. PLAN: We will continue current treatment. Continue to monitor hemoglobin and hematocrit level. The patient has a scheduled colonoscopy on 09/09/2018. Treatment plans were discussed with the patient's nurse. Treatment plans were discussed with Dr. Perkins. JOB# [id number]
--- NOTE | 2018-09-07 22:07 | Progress Notes ---
DATE: 09/07/[address] Rosales. Case was discussed with staff of the patient, reviewed records. I have seen this lady before covering for Dr. Rosales. The patient continues to be confused, unable to answer questions, forgetful, paranoid ____. In general, she is calm and cooperative. She is on Risperdal and Aricept with no side effects, no sedation, no nausea. The patient needs follow up with the psychiatrist upon discharge. Thank you very much for allowing me to participate in the care of this most interesting lady. Dr. Rosales ____ JOB# [id number]
[2018-09-08] MEDS: Sodium Chloride 0.45% 1,000 ML IV SCH ×2 (00:21→08:19)
[2018-09-08] MEDS: Lactulose 10 Gm/15 mL 30mL UDC PO SCH ×2 (08:20→12:12)
[2018-09-08] MEDS: Multivitamin w/ Minerals Tab PO SCH (08:21)
[2018-09-08] MEDS: Calcium Carb/Vit D 500 mg/200 U Tab PO SCH ×2 (08:21→16:14)
[2018-09-08] MEDS: POLYETHYLENE GLYCOL 3350 17 GM PACK PO SCH ×4 (08:22→16:14)
--- NOTE | 2018-09-08 09:10 | GI Progress Note ---
Subjective - Review of Systems Service Date: 09/08/18 Subjective: No bleeding overnight. Taking bowel prep slowly. GI OBJECTIVE - Results Result Diagrams: 09/07/18 05:55 09/07/18 05:55 Recent Labs: Laboratory Last Values WBC 6.6 Th/cmm (4.8-10.8) 09/07/18 05:55 RBC 3.99 Mil/cmm (3.80-5.20) 09/07/18 05:55 Hgb 12.1 gm/dL (12-16) 09/07/18 05:55 Hct 36.0 % (41.0-60) L 09/07/18 05:55 MCV 90.0 fl (81-100) 09/07/18 05:55 MCH 30.3 pg (27.0-31.0) 09/07/18 05:55 MCHC Differential 33.6 pg (28.0-36.0) 09/07/18 05:55 RDW 13.3 % (11.5-20.0) 09/07/18 05:55 Plt Count 271 Th/cmm (150-400) 09/07/18 05:55 MPV 7.6 fl 09/07/18 05:55 Neutrophils % 62.6 % (40.0-80.0) 09/07/18 05:55 Lymphocytes % 23.9 % (20.0-50.0) 09/07/18 05:55 Monocytes % 10.7 % (2.0-10.0) H 09/07/18 05:55 Eosinophils % 2.1 % (0.0-5.0) 09/07/18 05:55 Basophils % 0.7 % (0.0-2.0) 09/07/18 05:55 PT 10.0 SECONDS (9.5-11.5) 09/07/18 05:55 INR 0.96 (0.5-1.4) 09/07/18 05:55 PTT (Actin FS) 28.4 SECONDS (26.0-38.0) 09/05/18 05:20 Sodium 139 mEq/L (136-145) 09/07/18 05:55 Potassium 3.5 mEq/L (3.5-5.1) 09/07/18 05:55 Chloride 106 mEq/L (98-107) 09/07/18 05:55 Carbon Dioxide 24.8 mEq/L (21.0-31.0) 09/07/18 05:55 Anion Gap 11.7 (7.0-16.0) 09/07/18 05:55 BUN 12 mg/dL (7-25) 09/07/18 05:55 Creatinine 0.8 mg/dL (0.6-1.2) 09/07/18 05:55 Est GFR ( Amer) TNP 09/07/18 05:55 Est GFR (Non-Af Amer) TNP 09/07/18 05:55 BUN/Creatinine Ratio 15.0 09/07/18 05:55 Glucose 78 mg/dL (70-105) 09/07/18 05:55 Calcium 9.7 mg/dL (8.6-10.3) 09/07/18 05:55 Total Bilirubin 0.4 mg/dL (0.3-1.0) 09/03/18 22:20 AST 14 U/L (13-39) 09/03/18 22:20 ALT 8 U/L (7-52) 09/03/18 22:20 Alkaline Phosphatase 98 U/L (34-104) 09/03/18 22:20 Troponin I 0.01 ng/mL (0.01-0.05) 09/03/18 22:20 Total Protein 6.6 gm/dL (6.0-8.3) 09/03/18 22:20 Albumin 3.5 gm/dL (3.7-5.3) L 09/03/18 22:20 Globulin 3.1 gm/dL 09/03/18 22:20 Albumin/Globulin Ratio 1.1 (1.0-1.8) 09/03/18 22:20 Triglycerides 130 mg/dL (<150) 09/04/18 00:00 Cholesterol 140 mg/dL (<200) 09/04/18 00:00 LDL Cholesterol Direct 94 mg/dL (75-193) 09/04/18 00:00 HDL Cholesterol 33 mg/dL (23-92) 09/04/18 00:00 TSH 5.31 uIU/ml (0.34-5.60) 09/06/18 05:55 Blood Type A POSITIVE 09/06/18 06:16 Antibody Screen NEGATIVE 09/06/18 06:16 - Physical Exam Vitals and I&O: Vital Signs Temp 96.4 F 09/08/18 08:00 Pulse 71 09/08/18 08:21 Resp 18 09/08/18 08:00 BP 164/68 09/08/18 08:21 Pulse Ox 96 09/08/18 08:00 Intake & Output 09/07/18 09/08/18 09/08/18 18:59 06:59 18:59 Intake Total 2049 250 995.833 Balance 2049 250 995.833 Weight (lbs) 46.72 kg 46.72 kg Intake: Intake, IV Amount 1999 995.833 Sodium Chloride 0.45% 1999 995.833 000 ml @ 125 mls/hr IV . Q8H [facility] Rx#:[id number] Oral 50 250 Other: # Voids 2 2 # Bowel Movements 1 3 Stool Characteristics Soft Soft Brown Brown Weight Source Bedscale Bedscale Active Medications: Current Medications Acetaminophen (Tylenol) 650 mg PO Q4H PRN PRN Reason: Pain (Mild) & Fever above 101F Stop: 11/03/18 03:34 Acetaminophen (Tylenol Extra Strength) 1,000 mg PO Q4HR PRN PRN Reason: Pain (Moderate) Stop: 11/03/18 04:04 Artificial Tears (Artificial Tears Ophth Soln) 1 drop EACH EYE BID PRN PRN Reason: Dry Eye Stop: 11/03/18 03:33 Bisacodyl (Dulcolax 10 Mg Supp) 10 mg RC DAILY PRN PRN Reason: IF MOM INEFFECTIVE Stop: 11/03/18 04:04 Calcium/Vitamin D (Oscal W/Vitamin D) 1 tab PO BID [facility] Stop: 11/03/18 08:59 Last Admin: 09/08/18 08:21 Dose: 1 tab Cholecalciferol (Vitamin D3) 5,000 iu PO QFRI [facility] Stop: 11/05/18 08:59 Last Admin: 09/06/18 08:14 Dose: 5,000 iu Docusate Sodium (Colace) 250 mg PO DAILY [facility] Stop: 11/03/18 08:59 Last Admin: 09/08/18 08:21 Dose: 250 mg Donepezil HCl (Aricept) 10 mg PO HS [facility] Stop: 11/03/18 20:59 Last Admin: 09/07/18 21:44 Dose: 10 mg Hydrochlorothiazide (Hctz) 12.5 mg PO DAILY [facility] Stop: 11/03/18 08:59 Last Admin: 09/08/18 08:21 Dose: 12.5 mg Hydrocortisone (Anusol-Hc) 25 mg RC BID [facility] Stop: 11/03/18 16:59 Last Admin: 09/08/18 08:20 Dose: 25 mg Sodium Chloride (Nacl 0.45%) 1,000 mls @ 125 mls/hr IV .Q8H [facility] Stop: 11/03/18 01:14 Last Admin: 09/08/18 08:19 Dose: 125 mls/hr Isosorbide Dinitrate (Isordil) 5 mg PO TID [facility] Stop: 11/03/18 08:59 Last Admin: 09/08/18 08:21 Dose: 5 mg Lactulose (Cephulac) 45 gm PO QID [facility] Stop: 09/08/18 13:01 Last Admin: 09/08/18 08:20 Dose: 45 gm Loratadine (Claritin) 10 mg PO DAILY PRN PRN Reason: Allergy Symptoms Stop: 11/03/18 03:33 Lorazepam (Ativan) 1 mg IVP Q4HR PRN; Protocol PRN Reason: Agitation Stop: 11/03/18 01:33 Last Admin: 09/08/18 07:23 Dose: 1 mg Magnesium Hydroxide (Milk Of Magnesia) 30 ml PO HS PRN PRN Reason: Constipation Stop: 11/03/18 03:38 Polyethylene Glycol (Miralax) 17 gm PO DAILY [facility] Stop: 11/03/18 14:14 Last Admin: 09/08/18 08:22 Dose: Not Given Risperidone (Risperdal) 0.25 mg PO HS [facility]; Protocol Stop: 11/03/18 20:59 Last Admin: 09/07/18 21:42 Dose: 0.25 mg Sodium Phosphate (Fleet Enema) 135 ml RC Q48H PRN PRN Reason: IF DULCOLAX INEFFECTIVE Stop: 11/03/18 04:05 General: No acute distress Cardiovascular: Regular rate Lungs: Clear to auscultation Abdomen: Bowel sounds, Soft, no Tender Assessment/Plan - Assessment Assessment: # hematochezia, still ongoing intermittently. # Anemia Etiology may be from fecal impaction, hemorrhoids, diverticulosis, or less likely malignancy. She has been disempacted, and her hgb now stable without ongoing bleeding. Plan: - continue stool softeners and laxatives in preparation for colonoscopy 09/09. - may need NGT insertion if unable to tolerate bowel prep orally. - trend hgb, transfuse to keep > 7 - clear liquid diet as tolerated
[2018-09-08] MEDS ORDERED: Magnesium Citrate 1.75 GM/300 mL Bottle PO SCH ×2 (09:15→09:35)
--- NOTE | 2018-09-08 10:22 | Internal Medicine Prog Note ---
Internal Medicine Subjective - Subjective Patient is:: awake, non-verbal, in bed, confused Patient Complaints of:: other (family at bedside states patient is weaker) Per staff patient has:: no adverse event, no episodes of fall, tolerating meds Internal Medicine Objective - Results Result Diagrams: 09/07/18 05:55 09/07/18 05:55 Recent Labs: Laboratory Last Values WBC 6.6 Th/cmm (4.8-10.8) 09/07/18 05:55 RBC 3.99 Mil/cmm (3.80-5.20) 09/07/18 05:55 Hgb 12.1 gm/dL (12-16) 09/07/18 05:55 Hct 36.0 % (41.0-60) L 09/07/18 05:55 MCV 90.0 fl (81-100) 09/07/18 05:55 MCH 30.3 pg (27.0-31.0) 09/07/18 05:55 MCHC Differential 33.6 pg (28.0-36.0) 09/07/18 05:55 RDW 13.3 % (11.5-20.0) 09/07/18 05:55 Plt Count 271 Th/cmm (150-400) 09/07/18 05:55 MPV 7.6 fl 09/07/18 05:55 Neutrophils % 62.6 % (40.0-80.0) 09/07/18 05:55 Lymphocytes % 23.9 % (20.0-50.0) 09/07/18 05:55 Monocytes % 10.7 % (2.0-10.0) H 09/07/18 05:55 Eosinophils % 2.1 % (0.0-5.0) 09/07/18 05:55 Basophils % 0.7 % (0.0-2.0) 09/07/18 05:55 PT 10.0 SECONDS (9.5-11.5) 09/07/18 05:55 INR 0.96 (0.5-1.4) 09/07/18 05:55 PTT (Actin FS) 28.4 SECONDS (26.0-38.0) 09/05/18 05:20 Sodium 139 mEq/L (136-145) 09/07/18 05:55 Potassium 3.5 mEq/L (3.5-5.1) 09/07/18 05:55 Chloride 106 mEq/L (98-107) 09/07/18 05:55 Carbon Dioxide 24.8 mEq/L (21.0-31.0) 09/07/18 05:55 Anion Gap 11.7 (7.0-16.0) 09/07/18 05:55 BUN 12 mg/dL (7-25) 09/07/18 05:55 Creatinine 0.8 mg/dL (0.6-1.2) 09/07/18 05:55 Est GFR ( Amer) TNP 09/07/18 05:55 Est GFR (Non-Af Amer) TNP 09/07/18 05:55 BUN/Creatinine Ratio 15.0 09/07/18 05:55 Glucose 78 mg/dL (70-105) 09/07/18 05:55 Calcium 9.7 mg/dL (8.6-10.3) 09/07/18 05:55 Total Bilirubin 0.4 mg/dL (0.3-1.0) 09/03/18 22:20 AST 14 U/L (13-39) 09/03/18 22:20 ALT 8 U/L (7-52) 09/03/18 22:20 Alkaline Phosphatase 98 U/L (34-104) 09/03/18 22:20 Troponin I 0.01 ng/mL (0.01-0.05) 09/03/18 22:20 Total Protein 6.6 gm/dL (6.0-8.3) 09/03/18 22:20 Albumin 3.5 gm/dL (3.7-5.3) L 09/03/18 22:20 Globulin 3.1 gm/dL 09/03/18 22:20 Albumin/Globulin Ratio 1.1 (1.0-1.8) 09/03/18 22:20 Triglycerides 130 mg/dL (<150) 09/04/18 00:00 Cholesterol 140 mg/dL (<200) 09/04/18 00:00 LDL Cholesterol Direct 94 mg/dL (75-193) 09/04/18 00:00 HDL Cholesterol 33 mg/dL (23-92) 09/04/18 00:00 TSH 5.31 uIU/ml (0.34-5.60) 09/06/18 05:55 Blood Type A POSITIVE 09/06/18 06:16 Antibody Screen NEGATIVE 09/06/18 06:16 - Physical Exam Vitals and I&O: Vital Signs Temp 96.4 F 09/08/18 08:00 Pulse 71 09/08/18 08:21 Resp 18 09/08/18 08:00 BP 164/68 09/08/18 08:21 Pulse Ox 96 09/08/18 08:00 Intake & Output 09/07/18 09/08/18 09/08/18 18:59 06:59 18:59 Intake Total 2049 250 995.833 Balance 2049 250 995.833 Weight (lbs) 103 lb 103 lb Intake: Intake, IV Amount 1999 995.833 Sodium Chloride 0.45% 1999 995.833 000 ml @ 125 mls/hr IV . Q8H [facility] Rx#:[id number] Oral 50 250 Other: # Voids 2 2 # Bowel Movements 1 3 Stool Characteristics Soft Soft Soft Brown Brown Brown Weight Source Bedscale Bedscale Active Medications: Current Medications Acetaminophen (Tylenol) 650 mg PO Q4H PRN PRN Reason: Pain (Mild) & Fever above 101F Stop: 11/03/18 03:34 Acetaminophen (Tylenol Extra Strength) 1,000 mg PO Q4HR PRN PRN Reason: Pain (Moderate) Stop: 11/03/18 04:04 Artificial Tears (Artificial Tears Ophth Soln) 1 drop EACH EYE BID PRN PRN Reason: Dry Eye Stop: 11/03/18 03:33 Bisacodyl (Dulcolax 10 Mg Supp) 10 mg RC DAILY PRN PRN Reason: IF MOM INEFFECTIVE Stop: 11/03/18 04:04 Calcium/Vitamin D (Oscal W/Vitamin D) 1 tab PO BID [facility] Stop: 11/03/18 08:59 Last Admin: 09/08/18 08:21 Dose: 1 tab Cholecalciferol (Vitamin D3) 5,000 iu PO QFRI [facility] Stop: 11/05/18 08:59 Last Admin: 09/06/18 08:14 Dose: 5,000 iu Docusate Sodium (Colace) 250 mg PO DAILY [facility] Stop: 11/03/18 08:59 Last Admin: 09/08/18 08:21 Dose: 250 mg Donepezil HCl (Aricept) 10 mg PO HS [facility] Stop: 11/03/18 20:59 Last Admin: 09/07/18 21:44 Dose: 10 mg Hydrochlorothiazide (Hctz) 12.5 mg PO DAILY [facility] Stop: 11/03/18 08:59 Last Admin: 09/08/18 08:21 Dose: 12.5 mg Hydrocortisone (Anusol-Hc) 25 mg RC BID [facility] Stop: 11/03/18 16:59 Last Admin: 09/08/18 08:20 Dose: 25 mg Sodium Chloride (Nacl 0.45%) 1,000 mls @ 125 mls/hr IV .Q8H [facility] Stop: 11/03/18 01:14 Last Admin: 09/08/18 08:19 Dose: 125 mls/hr Isosorbide Dinitrate (Isordil) 5 mg PO TID [facility] Stop: 11/03/18 08:59 Last Admin: 09/08/18 08:21 Dose: 5 mg Lactulose (Cephulac) 45 gm PO QID [facility] Stop: 09/08/18 13:01 Last Admin: 09/08/18 08:20 Dose: 45 gm Loratadine (Claritin) 10 mg PO DAILY PRN PRN Reason: Allergy Symptoms Stop: 11/03/18 03:33 Lorazepam (Ativan) 1 mg IVP Q4HR PRN; Protocol PRN Reason: Agitation Stop: 11/03/18 01:33 Last Admin: 09/08/18 07:23 Dose: 1 mg Magnesium Citrate (Citroma) 1.75 gm PO BID [facility] Stop: 09/08/18 17:01 Magnesium Hydroxide (Milk Of Magnesia) 30 ml PO HS PRN PRN Reason: Constipation Stop: 11/03/18 03:38 Polyethylene Glycol (Miralax) 17 gm PO DAILY [facility] Stop: 11/03/18 14:14 Last Admin: 09/08/18 08:22 Dose: Not Given Polyethylene Glycol (Miralax) 34 gm PO Q4H [facility] Stop: 09/08/18 17:16 Last Admin: 09/08/18 09:40 Dose: 34 gm Risperidone (Risperdal) 0.25 mg PO HS [facility]; Protocol Stop: 11/03/18 20:59 Last Admin: 09/07/18 21:42 Dose: 0.25 mg Sodium Phosphate (Fleet Enema) 135 ml RC Q48H PRN PRN Reason: IF DULCOLAX INEFFECTIVE Stop: 11/03/18 04:05 General: weak, NAD HEENT: NC/AT, PERRLA Neck: Supple, No JVD Lungs: CTAB Abdomen: soft, non-tender, non-distended Neurological: unable to follow command Internal Medicine Assmt/Plan - Assessment Assessment: Possible lower GI bleed with Hematochezia. Dehydration. Mild Leukocytosis. Mild Anemia. Dementia. Psychosis. History of Dyslipidemia. History of Insomnia. History of Osteoporosis. History of Htn. History of Gerd/PUD. History of Right femur fracture. History of Vitamin B-12 deficiency. History of Vitamin D Deficiency. - Plan Plan: Continuation of care. ID consult, Psych consult and GI consult. F/U Colonoscopy per GI on 09/09/18 Monitor Labs, Hemoglobin levels. Continue present meds as directed. Monitor vitals, Continue BP meds as directed. Monitor Diet/Nutritional support. Psych management er Psych. Pain Management. Local skin care and Wound care. Physical therapy. Occupational therapy. Fall precaution, frequent nursing rounds, and as needed restraints to prevent fall. Safety precaution. Supportive care. Continue collaborating with consulting specialists, case management and nursing team. Will Monitor patient and continue current treatment plan as ordered. Nutritional Asmnt/Malnutr-PDOC - Dietary Evaluation Malnutrition Findings (Please click <Entered> for more info): Nutritional Asmnt/Malnutrition Start: 09/06/18 16: 00 Text: Status: Complete Freq: Protocol: Document 09/06/18 16:00 GRAHAM (Rec: 09/06/18 16:04 [email or web address] [id number]) Nutritional Asmnt/Malnutrition Patient General Information Nutritional Screening Moderate Risk Diagnosis POSSIBLE GI BLEED Pertinent Medical Hx/Surgical Hx DEMENTIA, DYSLIPIDEMIA, OSTEOPOROSIS, RT FEMUR FRACTURE, ANEMIA, VIT D DEFICIENCY, CATARACT, INSOMNIA , VIT B12 DEFICIENCY, PSYCHOSIS Subjective Information PT IS A 88 YEAR OLD FEMALE ADMITTED ON 09/04 D/T BLOOD IN DIAPERS. PT HAD A GI CONSULT D /T OVERNIGHT RECTAL BLEEDING, HAS A COLONOSCOPY SCHEDULED FOR 09/09. VISITED PT TODAY, SITTING IN BED NEAR NURSES STATION. PT WAS DRINKING AN ENSURE CLEAR AND ENJOYING IT. PER FRANCISCA ALVARADO, PT LIKES COLD FOODS BEST INCLUDING GELATIN, FRUIT, AND PUDDINGS. ATE 40% BREAKFAST AND LUNCH TODAY. HT: 5 FT WT: 110 LB (50 KG) BMI: 21.51 (NORMAL) GI: SOFT, NON-TENDER, ACTIVE, RECTAL BLEEDING NOTED 09/05 BM: 09/05 X 2 I/O: 1200/NOT NOTED SKIN: WNL, COOL, DRY, ELASTIC, INTACT PEDRITO: 14 DIET ORDER: CARDIAC, NA2GM, CHOPPED ESTIMATED ENERGY NEEDS: ( GERIATRIC) 1409-9386 KCALS (25-30 KCALS/ KG) 50-60G PRO (1.0-1.2 G/KG) 5246-2471 ML (25-30 ML/KG) PT PO INTAKE: ESTIMATED 25-40% MEALS X 2 DAYS, PER MEAL/ NUTRITION ACTIVITY RECORD. DIETARY IS CURRENTLY PROVIDING AN ESTIMATED 2900 KCALS AND 130 GM PRO. PER PT PO INTAKE, THIS IS PROVIDING AN ESTIMATED 957 KCALS AND 43 GM PRO, TO MEET 77% KCAL AND 86% PRO NEEDS ADEQUATE. Current Diet Order/ Nutrition Support CARDIAC, NA2GM, CHOPPED Pertinent Medications DULCOLAX (PRN), OSCAL W/ VIT D , VIT D3, COLACE, HYDROCHLOROTHIAZIDE, MOM (PRN) , MIRALAX, NACL 0.45% 1000ML@ 125ML/HR IV Q8H [facility], FLEET ENEMA (PRN) Pertinent Labs 09/06: HGB/HCT 12.6/37.8, NA 133 Nutritional Hx/Data Height 5 in Height (Calculated Centimeters) 12.7 Current Weight (lbs) 110 lb Weight (Calculated Kilograms) 49.9 Weight (Calculated Grams) 52988.2 [place] Body Weight 100 % [place] Body Weight 110 Body Mass Index (BMI) 3093.2 Weight Status Approriate GI Symptoms GI Symptoms Diarrhea Last BM 09/05 X 2 Skin Integrity/Comment: WNL, COOL, DRY, ELASTIC, INTACT Current %PO Poor (25-49%) Estimated Nutritional Goals BEE in Kcals: Using Current wt Calories/Kcals/Kg 25-30 Kcals Calculated 5047-1480 Protein: Using Current wt Protein g/k.0-1.2 Protein Calculated 4731-5426 Fluid: ml 0441-5601 ML (25-30 ML/KG) Nutritional Problem 1. Problem Problem ALTERED GI FUNCTION Etiology R/T PATHOPHSIOLOGY Signs/Symptoms: AEB DIARRHEA AND NOTED RECTAL BLEEDING Malnutrition Related to Morbid Obesity Malnutrition related to morbid obesity No Intervention/Recommendation Comments 1.CONTINUE WITH CARDIAC, NA2GM , CHOPPED DIET ORDERED. 2.RN TO ENCOURAGE INCREASED PO INTAKE. Expected Outcomes/Goals Expected Outcomes/Goals 1. PO INTAKE TO CONTINUE TO MEET 75% OF NUTRITIONAL NEEDS. 2. MONITOR PO INTAKE, WT, NUTRITION RELATED LABS AND SKIN INTEGRITY. 3. F/U MODERATE RISK IN 3-5 DAYS, 09/09-09/11
--- NOTE | 2018-09-08 23:54 | Progress Notes ---
DATE: 09/08/2018 FOLLOWUP CONSULTATION NOTE Case was discussed with staff of the patient, reviewed records. Covering for Dr. Rosales. The patient continues to be forgetful. Continues to be unable to participate in a meaningful conversation or make safe plan for self-care. No side effects with the medication, no sedation, no nausea. The patient is currently not acting out and she is demented, confused, and the patient needs follow up with the psychiatrist upon discharge. Thank you very much for allowing me to participate in the care of this most interesting lady. JOB# [id number]
[2018-09-09] MEDS: Sodium Chloride 0.45% 1,000 ML IV SCH ×2 (01:48→11:04)
[2018-09-09 04:35] LABS: % BASOPHILS 0.2 % (0.0-2.0); % EOSINOPHILS 1.3 % (0.0-5.0); % LYMPHOCYTES 15.3 % (20.0-50.0); % MONOCYTES 6.3 % (2.0-10.0); % NEUTROPHILS 76.9 % (40.0-80.0); EOSINOPHILE ABSOLUTE 0.1 Th/cmm (0.1-0.4); HEMATOCRIT 36.1 % (41.0-60); HEMOGLOBIN 12.1 gm/dL (12-16); MEAN CELL VOLUME 89.4 fl (81-100); MEAN CORPUSCULAR HGB CONC 33.6 pg (28.0-36.0); MONOCYTE ABSOLUTE 0.4 Th/cmm (0.3-1.0); PLATELET COUNT 289 Th/cmm (150-400); RED BLOOD COUNT 4.04 Mil/cmm (3.80-5.20); RED CELL DISTRIBUTION WIDTH 13.3 % (11.5-20.0); WHITE BLOOD COUNT 6.5 Th/cmm (4.8-10.8)
[2018-09-09 05:03] LABS: ANION GAP 10.6 (7.0-16.0); BUN - UREA NITROGEN 6 mg/dL (7-25); CALCIUM SERUM 9.4 mg/dL (8.6-10.3); CARBON DIOXIDE 24.6 mEq/L (21.0-31.0); CHLORIDE 108 mEq/L (98-107); CREATININE - SERUM 0.7 mg/dL (0.6-1.2); GLUCOSE 81 mg/dL (70-105); POTASSIUM SERUM 3.2 mEq/L (3.5-5.1); SODIUM SERUM 140 mEq/L (136-145)
[2018-09-09 05:12] LABS: INR 1.01 (0.5-1.4)
--- NOTE | 2018-09-09 08:52 | Diagnostic Imaging Report ---
Portable chest x-ray HISTORY: Cough, preoperative The overall heart size is difficult to assess with portable technique in a poor inspiration, but appears somewhat generous. Atherosclerotic calcification seen in the aorta. Poor inspiration results in accentuation of the interstitial lung markings. Allowing for this factor, no focal processes are seen. IMPRESSION: 1. Allowing for a poor inspiration, no acute focal pulmonary processes 2. Generous heart size with atherosclerotic vascular changes
[2018-09-09] MEDS ORDERED: Potassium Chloride Elixir 20 mEq /15 mL UDC PO ONE (08:54)
--- NOTE | 2018-09-09 10:20 | Internal Medicine Prog Note ---
Internal Medicine Subjective - Subjective Service Date: 09/09/18 Patient seen and examined:: with staff Patient is:: awake, non-verbal, in bed, confused Patient Complaints of:: other (family at bedside states patient is weaker) Per staff patient has:: no adverse event, no episodes of fall, tolerating meds Internal Medicine Objective - Results Result Diagrams: 09/09/18 04:30 09/09/18 04:30 Recent Labs: Laboratory Last Values WBC 6.5 Th/cmm (4.8-10.8) 09/09/18 04:30 RBC 4.04 Mil/cmm (3.80-5.20) 09/09/18 04:30 Hgb 12.1 gm/dL (12-16) 09/09/18 04:30 Hct 36.1 % (41.0-60) L 09/09/18 04:30 MCV 89.4 fl (81-100) 09/09/18 04:30 MCH 30.0 pg (27.0-31.0) 09/09/18 04:30 MCHC Differential 33.6 pg (28.0-36.0) 09/09/18 04:30 RDW 13.3 % (11.5-20.0) 09/09/18 04:30 Plt Count 289 Th/cmm (150-400) 09/09/18 04:30 MPV 7.3 fl 09/09/18 04:30 Neutrophils % 76.9 % (40.0-80.0) 09/09/18 04:30 Lymphocytes % 15.3 % (20.0-50.0) L 09/09/18 04:30 Monocytes % 6.3 % (2.0-10.0) 09/09/18 04:30 Eosinophils % 1.3 % (0.0-5.0) 09/09/18 04:30 Basophils % 0.2 % (0.0-2.0) 09/09/18 04:30 PT 10.5 SECONDS (9.5-11.5) 09/09/18 04:30 INR 1.01 (0.5-1.4) 09/09/18 04:30 PTT (Actin FS) 28.4 SECONDS (26.0-38.0) 09/05/18 05:20 Sodium 140 mEq/L (136-145) 09/09/18 04:30 Potassium 3.2 mEq/L (3.5-5.1) L 09/09/18 04:30 Chloride 108 mEq/L (98-107) H 09/09/18 04:30 Carbon Dioxide 24.6 mEq/L (21.0-31.0) 09/09/18 04:30 Anion Gap 10.6 (7.0-16.0) 09/09/18 04:30 BUN 6 mg/dL (7-25) L 09/09/18 04:30 Creatinine 0.7 mg/dL (0.6-1.2) 09/09/18 04:30 Est GFR ( Amer) TNP 09/09/18 04:30 Est GFR (Non-Af Amer) TNP 09/09/18 04:30 BUN/Creatinine Ratio 8.6 09/09/18 04:30 Glucose 81 mg/dL (70-105) 09/09/18 04:30 POC Glucose 81 MG/DL (70 - 105) 09/09/18 06:34 Calcium 9.4 mg/dL (8.6-10.3) 09/09/18 04:30 Total Bilirubin 0.4 mg/dL (0.3-1.0) 09/03/18 22:20 AST 14 U/L (13-39) 09/03/18 22:20 ALT 8 U/L (7-52) 09/03/18 22:20 Alkaline Phosphatase 98 U/L (34-104) 09/03/18 22:20 Troponin I 0.01 ng/mL (0.01-0.05) 09/03/18 22:20 Total Protein 6.6 gm/dL (6.0-8.3) 09/03/18 22:20 Albumin 3.5 gm/dL (3.7-5.3) L 09/03/18 22:20 Globulin 3.1 gm/dL 09/03/18 22:20 Albumin/Globulin Ratio 1.1 (1.0-1.8) 09/03/18 22:20 Triglycerides 130 mg/dL (<150) 09/04/18 00:00 Cholesterol 140 mg/dL (<200) 09/04/18 00:00 LDL Cholesterol Direct 94 mg/dL (75-193) 09/04/18 00:00 HDL Cholesterol 33 mg/dL (23-92) 09/04/18 00:00 TSH 5.31 uIU/ml (0.34-5.60) 09/06/18 05:55 Blood Type A POSITIVE 09/06/18 06:16 Antibody Screen NEGATIVE 09/06/18 06:16 - Physical Exam Vitals and I&O: Vital Signs Temp 98.6 F 09/09/18 04:00 Pulse 63 09/09/18 04:00 Resp 17 09/09/18 04:00 BP 137/54 09/09/18 04:00 Pulse Ox 99 09/09/18 04:00 Intake & Output 09/08/18 09/09/18 09/09/18 18:59 06:59 18:59 Intake Total 2395.833 Balance 2395.833 Weight (lbs) 46.72 kg 46.72 kg Intake: Intake, IV Amount 1994.833 Sodium Chloride 0.45% 833 000 ml @ 125 mls/hr IV . Q8H [facility] Rx#:[id number] Oral 400 Other: # Voids 2 3 # Bowel Movements 2 1 Stool Characteristics Soft Soft Brown Brown Weight Source Bedscale Bedscale Active Medications: Current Medications Acetaminophen (Tylenol) 650 mg PO Q4H PRN PRN Reason: Pain (Mild) & Fever above 101F Stop: 11/03/18 03:34 Acetaminophen (Tylenol Extra Strength) 1,000 mg PO Q4HR PRN PRN Reason: Pain (Moderate) Stop: 11/03/18 04:04 Artificial Tears (Artificial Tears Ophth Soln) 1 drop EACH EYE BID PRN PRN Reason: Dry Eye Stop: 11/03/18 03:33 Bisacodyl (Dulcolax 10 Mg Supp) 10 mg RC DAILY PRN PRN Reason: IF MOM INEFFECTIVE Stop: 11/03/18 04:04 Calcium/Vitamin D (Oscal W/Vitamin D) 1 tab PO BID [facility] Stop: 11/03/18 08:59 Last Admin: 09/08/18 16:14 Dose: 1 tab Cholecalciferol (Vitamin D3) 5,000 iu PO QFRI [facility] Stop: 11/05/18 08:59 Last Admin: 09/06/18 08:14 Dose: 5,000 iu Docusate Sodium (Colace) 250 mg PO DAILY [facility] Stop: 11/03/18 08:59 Last Admin: 09/08/18 08:21 Dose: 250 mg Donepezil HCl (Aricept) 10 mg PO HS [facility] Stop: 11/03/18 20:59 Last Admin: 09/08/18 22:05 Dose: 10 mg Hydrochlorothiazide (Hctz) 12.5 mg PO DAILY [facility] Stop: 11/03/18 08:59 Last Admin: 09/08/18 08:21 Dose: 12.5 mg Hydrocortisone (Anusol-Hc) 25 mg RC BID [facility] Stop: 11/03/18 16:59 Last Admin: 09/08/18 16:14 Dose: 25 mg Sodium Chloride (Nacl 0.45%) 1,000 mls @ 125 mls/hr IV .Q8H [facility] Stop: 11/03/18 01:14 Last Admin: 09/09/18 01:48 Dose: 125 mls/hr Isosorbide Dinitrate (Isordil) 5 mg PO TID [facility] Stop: 11/03/18 08:59 Last Admin: 09/08/18 22:05 Dose: 5 mg Loratadine (Claritin) 10 mg PO DAILY PRN PRN Reason: Allergy Symptoms Stop: 11/03/18 03:33 Lorazepam (Ativan) 1 mg IVP Q4HR PRN; Protocol PRN Reason: Agitation Stop: 11/03/18 01:33 Last Admin: 09/09/18 04:09 Dose: 1 mg Magnesium Hydroxide (Milk Of Magnesia) 30 ml PO HS PRN PRN Reason: Constipation Stop: 11/03/18 03:38 Polyethylene Glycol (Miralax) 17 gm PO DAILY [facility] Stop: 11/03/18 14:14 Last Admin: 09/08/18 08:22 Dose: Not Given Risperidone (Risperdal) 0.25 mg PO HS [facility]; Protocol Stop: 11/03/18 20:59 Last Admin: 09/08/18 22:05 Dose: 0.25 mg Sodium Phosphate (Fleet Enema) 135 ml RC Q48H PRN PRN Reason: IF DULCOLAX INEFFECTIVE Stop: 11/03/18 04:05 Physical Exam: Patient continues to be very confused. General: weak, NAD HEENT: NC/AT, PERRLA Neck: Supple, No JVD Lungs: CTAB Abdomen: soft, non-tender, non-distended Extremities: excoriation Neurological: no change, unable to follow command Internal Medicine Assmt/Plan - Assessment Assessment: Cough. Possible lower GI bleed with Hematochezia. Dehydration. Mild Leukocytosis. Mild Anemia. Dementia. Psychosis. History of Dyslipidemia. History of Insomnia. History of Osteoporosis. History of Htn. History of Gerd/PUD. History of Right femur fracture. History of Vitamin B-12 deficiency. History of Vitamin D Deficiency. - Plan Plan: Continuation of care. ID consult, Psych consult and GI consult. Monitor Labs, Hemoglobin levels. Continue present meds as directed. Monitor vitals, Continue BP meds as directed. Monitor Diet/Nutritional support. Psych management per Psych. Pain Management. Local skin care and Wound care. Physical therapy. Occupational therapy. Fall precaution, frequent nursing rounds, and as needed restraints to prevent fall. Safety precaution. Supportive care. Continue collaborating with consulting specialists, case management and nursing team. Will Monitor patient and continue present care management. Nutritional Asmnt/Malnutr-PDOC - Dietary Evaluation Malnutrition Findings (Please click <Entered> for more info): Nutritional Asmnt/Malnutrition Start: 09/06/18 16: 00 Text: Status: Complete Freq: Protocol: Document 09/06/18 16:00 GRAHAM (Rec: 09/06/18 16:04 [email or web address]) Nutritional Asmnt/Malnutrition Patient General Information Nutritional Screening Moderate Risk Diagnosis POSSIBLE GI BLEED Pertinent Medical Hx/Surgical Hx DEMENTIA, DYSLIPIDEMIA, OSTEOPOROSIS, RT FEMUR FRACTURE, ANEMIA, VIT D DEFICIENCY, CATARACT, INSOMNIA , VIT B12 DEFICIENCY, PSYCHOSIS Subjective Information PT IS A 88 YEAR OLD FEMALE ADMITTED ON 09/04 D/T BLOOD IN DIAPERS. PT HAD A GI CONSULT D /T OVERNIGHT RECTAL BLEEDING, HAS A COLONOSCOPY SCHEDULED FOR 09/09. VISITED PT TODAY, SITTING IN BED NEAR NURSES STATION. PT WAS DRINKING AN ENSURE CLEAR AND ENJOYING IT. PER FRANCISCA ALVARADO, PT LIKES COLD FOODS BEST INCLUDING GELATIN, FRUIT, AND PUDDINGS. ATE 40% BREAKFAST AND LUNCH TODAY. HT: 5 FT WT: 110 LB (50 KG) BMI: 21.51 (NORMAL) GI: SOFT, NON-TENDER, ACTIVE, RECTAL BLEEDING NOTED 09/05 BM: 09/05 X 2 I/O: 1200/NOT NOTED SKIN: WNL, COOL, DRY, ELASTIC, INTACT PEDRITO: 14 DIET ORDER: CARDIAC, NA2GM, CHOPPED ESTIMATED ENERGY NEEDS: ( GERIATRIC) 9417-9621 KCALS (25-30 KCALS/ KG) 50-60G PRO (1.0-1.2 G/KG) 4980-2413 ML (25-30 ML/KG) PT PO INTAKE: ESTIMATED 25-40% MEALS X 2 DAYS, PER MEAL/ NUTRITION ACTIVITY RECORD. DIETARY IS CURRENTLY PROVIDING AN ESTIMATED 2900 KCALS AND 130 GM PRO. PER PT PO INTAKE, THIS IS PROVIDING AN ESTIMATED 957 KCALS AND 43 GM PRO, TO MEET 77% KCAL AND 86% PRO NEEDS ADEQUATE. Current Diet Order/ Nutrition Support CARDIAC, NA2GM, CHOPPED Pertinent Medications DULCOLAX (PRN), OSCAL W/ VIT D , VIT D3, COLACE, HYDROCHLOROTHIAZIDE, MOM (PRN) , MIRALAX, NACL 0.45% 1000ML@ 125ML/HR IV Q8H [facility], FLEET ENEMA (PRN) Pertinent Labs 09/06: HGB/HCT 12.6/37.8, NA 133 Nutritional Hx/Data Height 12.7 cm Height (Calculated Centimeters) 12.7 Current Weight (lbs) 49.895 kg Weight (Calculated Kilograms) 49.9 Weight (Calculated Grams) 14529.2 [place] Body Weight 100 % [place] Body Weight 110 Body Mass Index (BMI) 3093.2 Weight Status Approriate GI Symptoms GI Symptoms Diarrhea Last BM 09/05 X 2 Skin Integrity/Comment: WNL, COOL, DRY, ELASTIC, INTACT Current %PO Poor (25-49%) Estimated Nutritional Goals BEE in Kcals: Using Current wt Calories/Kcals/Kg 25-30 Kcals Calculated 9670-2074 Protein: Using Current wt Protein g/k.0-1.2 Protein Calculated 5892-9124 Fluid: ml 9018-7839 ML (25-30 ML/KG) Nutritional Problem 1. Problem Problem ALTERED GI FUNCTION Etiology R/T PATHOPHSIOLOGY Signs/Symptoms: AEB DIARRHEA AND NOTED RECTAL BLEEDING Malnutrition Related to Morbid Obesity Malnutrition related to morbid obesity No Intervention/Recommendation Comments 1.CONTINUE WITH CARDIAC, NA2GM , CHOPPED DIET ORDERED. 2.RN TO ENCOURAGE INCREASED PO INTAKE. Expected Outcomes/Goals Expected Outcomes/Goals 1. PO INTAKE TO CONTINUE TO MEET 75% OF NUTRITIONAL NEEDS. 2. MONITOR PO INTAKE, WT, NUTRITION RELATED LABS AND SKIN INTEGRITY. 3. F/U MODERATE RISK IN 3-5 DAYS, 09/09-09/11
[2018-09-09] MEDS: Calcium Carb/Vit D 500 mg/200 U Tab PO SCH ×2 (13:54→17:39)
[2018-09-09] MEDS: POLYETHYLENE GLYCOL 3350 17 GM PACK PO SCH (13:54)
[2018-09-09] MEDS: Multivitamin w/ Minerals Tab PO SCH (13:54)
--- NOTE | 2018-09-09 17:44 | Operative Report ---
DATE OF SURGERY: 09/09/2018 PROCEDURE: Colonoscopy with snare cautery polypectomy and biopsy at a different site. PREPROCEDURE DIAGNOSIS: Possible GI bleed/rectal bleeding. POSTPROCEDURE DIAGNOSES: 1. Probable vaginal bleeding with blood noting from vaginal vault. 2. Three colon polyps, excised, as described below. 3. Moderate diverticulosis. INDICATIONS: An 88-year-old female admitted for constipation and possible GI bleeding. CONSENT: Informed consent was obtained from the patient and her durable power of personal injury attorney prior to procedure after detailed explanation of risks, benefits, and alternatives including but not limited to infection, bleeding, perforation and . SEDATION: Monitored anesthesia care per Dr. Kaye. DESCRIPTION OF PROCEDURE AND FINDINGS: The procedure took place as an inpatient in the GI suite of [facility]. The patient was kept in a left lateral decubitus position. Adequate sedation was achieved with above medications. Rectal examination revealed normal sphincter tone with no rectal masses. There was some fresh blood emanating from the vaginal orifice. A pediatric colonoscope was advanced through the patient's anus and into the rectum with ease. It was advanced up to the cecum, which was visualized by landmarks of ileocecal valve and appendiceal orifice. The quality of the bowel preparation was fair. The approximate scope withdrawal time from cecum to anus was 15 minutes. Three polyps were identified. An 8 mm sessile/semi-pedunculated polyp in the sigmoid colon was excised by snare cautery polypectomy. A 1 cm pedunculated polyp in the mid descending colon was removed in similar fashion by snare cautery polypectomy. A 5 mm polyp in the mid transverse colon was excised with biopsy forceps. There was [id number] left greater than right-sided diverticulosis without obvious diverticulitis. Retroflexion in the rectum revealed no obvious internal hemorrhoids. Scope was withdrawn The patient tolerated the procedure well. No complications are anticipated. IMPRESSION: 1. No evidence of gastrointestinal bleeding. 2. Evidence of vaginal bleeding, cause to be determined. 3. Three colon polyps, excised. 4. Diverticulosis. RECOMMENDATIONS: 1. Gynecology evaluation for vaginal bleeding. 2. Oral diet as tolerated. 3. Follow up biopsy results. 4. Hold blood thinners for a week. 5. Monitor hemoglobin. Thank you, Dr. Kylah Perkins for involving us in the care of your patient. If you have any further questions, please call us. JOB# [id number]
--- NOTE | 2018-09-09 21:01 | Progress Notes ---
DATE: 09/09/2018 SUBJECTIVE: The patient continues to be confused, demented. She continues to have poor insight. She continues to be unpredictable, impulsive, and needing redirection. She is sleeping well, fed by the staff. No side effects with the medication. The patient needs follow up with the psychiatrist on discharge. Covering for Dr. Rosales. Thank you very much for allowing me to participate in the care of this most interesting lady. JOB# [id number]
[2018-09-10] MEDS: Calcium Carb/Vit D 500 mg/200 U Tab PO SCH (09:05)
[2018-09-10] MEDS: Multivitamin w/ Minerals Tab PO SCH (09:05)
[2018-09-10] MEDS: POLYETHYLENE GLYCOL 3350 17 GM PACK PO SCH (09:11)
--- NOTE | 2018-09-10 14:10 | Internal Medicine Prog Note ---
Internal Medicine Subjective - Subjective Service Date: 09/10/18 Patient seen and examined:: with staff Patient is:: awake, non-verbal, in bed, confused Patient Complaints of:: other ( patient is weaker.) Per staff patient has:: no adverse event, no episodes of fall, tolerating meds Internal Medicine Objective - Results Result Diagrams: 09/09/18 04:30 09/09/18 04:30 Recent Labs: Laboratory Last Values WBC 6.5 Th/cmm (4.8-10.8) 09/09/18 04:30 RBC 4.04 Mil/cmm (3.80-5.20) 09/09/18 04:30 Hgb 12.1 gm/dL (12-16) 09/09/18 04:30 Hct 36.1 % (41.0-60) L 09/09/18 04:30 MCV 89.4 fl (81-100) 09/09/18 04:30 MCH 30.0 pg (27.0-31.0) 09/09/18 04:30 MCHC Differential 33.6 pg (28.0-36.0) 09/09/18 04:30 RDW 13.3 % (11.5-20.0) 09/09/18 04:30 Plt Count 289 Th/cmm (150-400) 09/09/18 04:30 MPV 7.3 fl 09/09/18 04:30 Neutrophils % 76.9 % (40.0-80.0) 09/09/18 04:30 Lymphocytes % 15.3 % (20.0-50.0) L 09/09/18 04:30 Monocytes % 6.3 % (2.0-10.0) 09/09/18 04:30 Eosinophils % 1.3 % (0.0-5.0) 09/09/18 04:30 Basophils % 0.2 % (0.0-2.0) 09/09/18 04:30 PT 10.5 SECONDS (9.5-11.5) 09/09/18 04:30 INR 1.01 (0.5-1.4) 09/09/18 04:30 PTT (Actin FS) 28.4 SECONDS (26.0-38.0) 09/05/18 05:20 Sodium 140 mEq/L (136-145) 09/09/18 04:30 Potassium 3.2 mEq/L (3.5-5.1) L 09/09/18 04:30 Chloride 108 mEq/L (98-107) H 09/09/18 04:30 Carbon Dioxide 24.6 mEq/L (21.0-31.0) 09/09/18 04:30 Anion Gap 10.6 (7.0-16.0) 09/09/18 04:30 BUN 6 mg/dL (7-25) L 09/09/18 04:30 Creatinine 0.7 mg/dL (0.6-1.2) 09/09/18 04:30 Est GFR ( Amer) TNP 09/09/18 04:30 Est GFR (Non-Af Amer) TNP 09/09/18 04:30 BUN/Creatinine Ratio 8.6 09/09/18 04:30 Glucose 81 mg/dL (70-105) 09/09/18 04:30 POC Glucose 81 MG/DL (70 - 105) 09/09/18 06:34 Calcium 9.4 mg/dL (8.6-10.3) 09/09/18 04:30 Total Bilirubin 0.4 mg/dL (0.3-1.0) 09/03/18 22:20 AST 14 U/L (13-39) 09/03/18 22:20 ALT 8 U/L (7-52) 09/03/18 22:20 Alkaline Phosphatase 98 U/L (34-104) 09/03/18 22:20 Troponin I 0.01 ng/mL (0.01-0.05) 09/03/18 22:20 Total Protein 6.6 gm/dL (6.0-8.3) 09/03/18 22:20 Albumin 3.5 gm/dL (3.7-5.3) L 09/03/18 22:20 Globulin 3.1 gm/dL 09/03/18 22:20 Albumin/Globulin Ratio 1.1 (1.0-1.8) 09/03/18 22:20 Triglycerides 130 mg/dL (<150) 09/04/18 00:00 Cholesterol 140 mg/dL (<200) 09/04/18 00:00 LDL Cholesterol Direct 94 mg/dL (75-193) 09/04/18 00:00 HDL Cholesterol 33 mg/dL (23-92) 09/04/18 00:00 TSH 5.31 uIU/ml (0.34-5.60) 09/06/18 05:55 Blood Type A POSITIVE 09/06/18 06:16 Antibody Screen NEGATIVE 09/06/18 06:16 - Physical Exam Vitals and I&O: Vital Signs Temp 96.7 F 09/10/18 12:09 Pulse 77 09/10/18 13:17 Resp 18 09/10/18 12:09 BP 168/93 09/10/18 13:17 Pulse Ox 100 09/10/18 12:09 Intake & Output 09/09/18 09/10/18 09/10/18 18:59 06:59 18:59 Intake Total 1000 Balance 1000 Weight (lbs) 46.72 kg 46.72 kg Intake: Intake, IV Amount 1000 Sodium Chloride 0.45% 1, 1000 000 ml @ 125 mls/hr IV . Q8H [facility] Rx#:[id number] Other: # Voids 3 2 # Bowel Movements 2 1 Stool Characteristics Liquid Liquid Liquid Brown Brown Brown Weight Source Bedscale Bedscale Active Medications: Current Medications Acetaminophen (Tylenol) 650 mg PO Q4H PRN PRN Reason: Pain (Mild) & Fever above 101F Stop: 11/03/18 03:34 Acetaminophen (Tylenol Extra Strength) 1,000 mg PO Q4HR PRN PRN Reason: Pain (Moderate) Stop: 11/03/18 04:04 Artificial Tears (Artificial Tears Ophth Soln) 1 drop EACH EYE BID PRN PRN Reason: Dry Eye Stop: 11/03/18 03:33 Bisacodyl (Dulcolax 10 Mg Supp) 10 mg RC DAILY PRN PRN Reason: IF MOM INEFFECTIVE Stop: 11/03/18 04:04 Calcium/Vitamin D (Oscal W/Vitamin D) 1 tab PO BID [facility] Stop: 11/03/18 08:59 Last Admin: 09/10/18 09:05 Dose: 1 tab Cholecalciferol (Vitamin D3) 5,000 iu PO QFRI [facility] Stop: 11/05/18 08:59 Last Admin: 09/06/18 08:14 Dose: 5,000 iu Docusate Sodium (Colace) 250 mg PO DAILY [facility] Stop: 11/03/18 08:59 Last Admin: 09/10/18 09:11 Dose: Not Given Donepezil HCl (Aricept) 10 mg PO HS [facility] Stop: 11/03/18 20:59 Last Admin: 09/09/18 21:46 Dose: 10 mg Hydrochlorothiazide (Hctz) 12.5 mg PO DAILY [facility] Stop: 11/03/18 08:59 Last Admin: 09/10/18 09:05 Dose: 12.5 mg Hydrocortisone (Anusol-Hc) 25 mg RC BID [facility] Stop: 11/03/18 16:59 Last Admin: 09/10/18 09:10 Dose: 25 mg Sodium Chloride (Nacl 0.45%) 1,000 mls @ 125 mls/hr IV .Q8H [facility] Stop: 11/03/18 01:14 Last Admin: 09/09/18 11:04 Dose: 125 mls/hr Isosorbide Dinitrate (Isordil) 5 mg PO TID [facility] Stop: 11/03/18 08:59 Last Admin: 09/10/18 13:17 Dose: 5 mg Loratadine (Claritin) 10 mg PO DAILY PRN PRN Reason: Allergy Symptoms Stop: 11/03/18 03:33 Lorazepam (Ativan) 1 mg IVP Q4HR PRN; Protocol PRN Reason: Agitation Stop: 11/03/18 01:33 Last Admin: 09/10/18 01:54 Dose: 1 mg Magnesium Hydroxide (Milk Of Magnesia) 30 ml PO HS PRN PRN Reason: Constipation Stop: 11/03/18 03:38 Polyethylene Glycol (Miralax) 17 gm PO DAILY [facility] Stop: 11/03/18 14:14 Last Admin: 09/10/18 09:11 Dose: Not Given Risperidone (Risperdal) 0.25 mg PO HS [facility]; Protocol Stop: 11/03/18 20:59 Last Admin: 09/09/18 21:48 Dose: 0.25 mg Sodium Phosphate (Fleet Enema) 135 ml RC Q48H PRN PRN Reason: IF DULCOLAX INEFFECTIVE Stop: 11/03/18 04:05 Physical Exam: Patient had vaginal bleeding, monitor hemoglobin. General: weak, NAD HEENT: NC/AT, PERRLA Neck: Supple, No JVD Lungs: CTAB Abdomen: soft, non-tender, non-distended Extremities: excoriation Neurological: no change, unable to follow command - Procedures Procedures: Procedures Procedure Code Date EXCISION OF DESCENDING COLON, ENDO, DIAGN [id number] 09/04/18 EXCISION OF SIGMOID COLON, ENDO, DIAGN [id number] 09/04/18 EXCISION OF TRANSVERSE COLON, ENDO, DIAGN [id number] 09/04/18 Internal Medicine Assmt/Plan - Assessment Assessment: Cough. Possible lower GI bleed with Hematochezia. Dehydration. Mild Leukocytosis. Mild Anemia. Dementia. Psychosis. History of Dyslipidemia. History of Insomnia. History of Osteoporosis. History of Htn. History of Gerd/PUD. History of Right femur fracture. History of Vitamin B-12 deficiency. History of Vitamin D Deficiency. - Plan Plan: Continuation of care. ID consult, Psych consult and GI consult. Monitor Labs, Hemoglobin levels. Continue present meds as directed. Monitor vitals, Continue BP meds as directed. Monitor Diet/Nutritional support. Psych management per Psych. Pain Management. Local skin care and Wound care. Physical therapy. Occupational therapy. Fall precaution, frequent nursing rounds, and as needed restraints to prevent fall. Safety precaution. Supportive care. Continue collaborating with consulting specialists, case management and nursing team. Will Monitor patient and continue present care management. Nutritional Asmnt/Malnutr-PDOC - Dietary Evaluation Malnutrition Findings (Please click <Entered> for more info): Nutritional Asmnt/Malnutrition Start: 09/06/18 16: 00 Text: Status: Complete Freq: Protocol: Document 09/06/18 16:00 GRAHAM (Rec: 09/06/18 16:04 [email or web address] [email or web address]) Nutritional Asmnt/Malnutrition Patient General Information Nutritional Screening Moderate Risk Diagnosis POSSIBLE GI BLEED Pertinent Medical Hx/Surgical Hx DEMENTIA, DYSLIPIDEMIA, OSTEOPOROSIS, RT FEMUR FRACTURE, ANEMIA, VIT D DEFICIENCY, CATARACT, INSOMNIA , VIT B12 DEFICIENCY, PSYCHOSIS Subjective Information PT IS A 88 YEAR OLD FEMALE ADMITTED ON 09/04 D/T BLOOD IN DIAPERS. PT HAD A GI CONSULT D /T OVERNIGHT RECTAL BLEEDING, HAS A COLONOSCOPY SCHEDULED FOR 09/09. VISITED PT TODAY, SITTING IN BED NEAR NURSES STATION. PT WAS DRINKING AN ENSURE CLEAR AND ENJOYING IT. PER FRANCISCA ALVARADO, PT LIKES COLD FOODS BEST INCLUDING GELATIN, FRUIT, AND PUDDINGS. ATE 40% BREAKFAST AND LUNCH TODAY. HT: 5 FT WT: 110 LB (50 KG) BMI: 21.51 (NORMAL) GI: SOFT, NON-TENDER, ACTIVE, RECTAL BLEEDING NOTED 09/05 BM: 09/05 X 2 I/O: 1200/NOT NOTED SKIN: WNL, COOL, DRY, ELASTIC, INTACT PEDRITO: 14 DIET ORDER: CARDIAC, NA2GM, CHOPPED ESTIMATED ENERGY NEEDS: ( GERIATRIC) 6489-9825 KCALS (25-30 KCALS/ KG) 50-60G PRO (1.0-1.2 G/KG) 8547-6372 ML (25-30 ML/KG) PT PO INTAKE: ESTIMATED 25-40% MEALS X 2 DAYS, PER MEAL/ NUTRITION ACTIVITY RECORD. DIETARY IS CURRENTLY PROVIDING AN ESTIMATED 2900 KCALS AND 130 GM PRO. PER PT PO INTAKE, THIS IS PROVIDING AN ESTIMATED 957 KCALS AND 43 GM PRO, TO MEET 77% KCAL AND 86% PRO NEEDS ADEQUATE. Current Diet Order/ Nutrition Support CARDIAC, NA2GM, CHOPPED Pertinent Medications DULCOLAX (PRN), OSCAL W/ VIT D , VIT D3, COLACE, HYDROCHLOROTHIAZIDE, MOM (PRN) , MIRALAX, NACL 0.45% 1000ML@ 125ML/HR IV Q8H [facility], FLEET ENEMA (PRN) Pertinent Labs 09/06: HGB/HCT 12.6/37.8, NA 133 Nutritional Hx/Data Height 12.7 cm Height (Calculated Centimeters) 12.7 Current Weight (lbs) 49.895 kg Weight (Calculated Kilograms) 49.9 Weight (Calculated Grams) 73741.2 [place] Body Weight 100 % [place] Body Weight 110 Body Mass Index (BMI) 3093.2 Weight Status Approriate GI Symptoms GI Symptoms Diarrhea Last BM 09/05 X 2 Skin Integrity/Comment: WNL, COOL, DRY, ELASTIC, INTACT Current %PO Poor (25-49%) Estimated Nutritional Goals BEE in Kcals: Using Current wt Calories/Kcals/Kg 25-30 Kcals Calculated 1559-3325 Protein: Using Current wt Protein g/k.0-1.2 Protein Calculated 2716-0707 Fluid: ml 8112-3359 ML (25-30 ML/KG) Nutritional Problem 1. Problem Problem ALTERED GI FUNCTION Etiology R/T PATHOPHSIOLOGY Signs/Symptoms: AEB DIARRHEA AND NOTED RECTAL BLEEDING Malnutrition Related to Morbid Obesity Malnutrition related to morbid obesity No Intervention/Recommendation Comments 1.CONTINUE WITH CARDIAC, NA2GM , CHOPPED DIET ORDERED. 2.RN TO ENCOURAGE INCREASED PO INTAKE. Expected Outcomes/Goals Expected Outcomes/Goals 1. PO INTAKE TO CONTINUE TO MEET 75% OF NUTRITIONAL NEEDS. 2. MONITOR PO INTAKE, WT, NUTRITION RELATED LABS AND SKIN INTEGRITY. 3. F/U MODERATE RISK IN 3-5 DAYS, 09/09-09/11
--- NOTE | 2018-09-11 01:35 | Progress Notes ---
DATE: 09/10/2018 Case was discussed with staff of the patient, reviewed records. The patient had a colonoscopy yesterday. The results are pending. She continues to be unable to carry on a conversation. Continues to have poor insight, unable to make safe plan for self-care. Now, she is easier to redirect. No side effects with the medication. The patient needs follow up with the psychiatrist upon discharge. Thank you very much for allowing me to participate in the care of this most interesting lady. JOB# [id number]
--- NOTE | 2018-09-11 12:59 | Pathology Report ---
[id number] Collection Date: 09/09/2018 Surgeon: Dr. Anai German Specimen Description: 1. Descending colon polyp. 2. Transverse colon polyp. 3. Sigmoid colon polyp. Gross Description: Part I: Received in formalin is a 0.5 x 0.3 x 0.2 cm polypoid portion of perez soft tissue. Totally submitted in one cassette labeled A. Gross Description: Part II: Received in formalin are two perez soft tissue fragments ranging from 0.1 to 0.2 cm in greatest dimension. Totally submitted in one cassette labeled B. Gross Description: Part III: Received in formalin is a 0.3 x 0.2 x 0.1 cm polypoid portion of perez soft tissue. Totally submitted in one cassette labeled C. Microscopic Description: Part I: The histologic sections show a polypoid portion of colon mucosa with adenomatous glandular changes present consisting of nuclear enlargement and stratification, with mostly tubules consistent with tubular adenoma. 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 Microscopic Description: Part II: The histologic sections show colon mucosa with focal adenomatous glandular changes present consisting of mild nuclear enlargement and stratification, with mostly tubules formed consistent with tubular adenoma. Diagnosis: Part II: Benign adenomatous polyp consistent with tubular adenoma, transverse colon. Microscopic Description: Part III: The histologic sections show colon mucosa with adenomatous glandular changes present consisting of nuclear enlargement and stratification, with mostly tubules formed consistent with tubular adenoma. 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 Comment: There is no evidence for malignancy. [facility]# [id number]
== END 2018-09-10 15:45 | DRG 254 ==
LOC: ER 22:04 → MSI 09-04 00:50
PROVIDERS: ADMIT Internal Medicine; ATTEND Internal Medicine
PROC: 0DBM8ZX Excision of Descending Colon, Via Natural or Artificial Opening Endoscopic, Diagnostic (ICD-10-PCS; principal; 2018-09-09)
PROC: 0DBL8ZX Excision of Transverse Colon, Via Natural or Artificial Opening Endoscopic, Diagnostic (ICD-10-PCS; 2018-09-09)
PROC: 0DBN8ZX Excision of Sigmoid Colon, Via Natural or Artificial Opening Endoscopic, Diagnostic (ICD-10-PCS; 2018-09-09)
DX: K63.5 Polyp of colon (principal); F03.91 Unspecified dementia, unspecified severity, with behavioral disturbance; R53.2 Functional quadriplegia; K57.31 Diverticulosis of large intestine without perforation or abscess with bleeding; D64.9 Anemia, unspecified; E86.0 Dehydration; K92.1 Melena; D72.829 Elevated white blood cell count, unspecified; E78.5 Hyperlipidemia, unspecified; F29 Unspecified psychosis not due to a substance or known physiological condition; M81.0 Age-related osteoporosis without current pathological fracture; E55.9 Vitamin D deficiency, unspecified; G47.00 Insomnia, unspecified; E53.8 Deficiency of other specified B group vitamins; K21.9 Gastro-esophageal reflux disease without esophagitis; I10 Essential (primary) hypertension; Z87.11 Personal history of peptic ulcer disease
CPT/HCPCS: 36415-UA; 71045-TC; 80048-TC; 80053-TC; 80061-TC; 82948-90; 84443-TC; 84484-TC; 85025-TC; 85610-TC; 86850-TC; 86900-TC; 86901-TC; 93005; 96374; J1200; J2060; J7030; J7042; Z7610